=== PATIENT | female | born 1940 | race Caucasian/White ===

== ENCOUNTER 2017-05-24 09:37 | Outpatient (CLI) | payer BC, MEDICARE ==
--- NOTE | 2017-05-24 13:11 | MRI ---
MRI LUMBAR SPINE NONCONTRAST: DATE: 05/24/17 HISTORY: 76-year-old female with chronic low back pain for 1 year. M48.062. COMPARISON: None. FINDINGS: There are five lumbar-type vertebrae. There is symmetrical atrophy of the bilateral posterior paraspi nal musculature. There is no vertebral body collapse. There is advanced degenerative disc disease man ifested by moderate and severe disc space narrowing at every visualized level from T12-L1 through L5- S1. There are end plate irregularities and Schmorl's nodes at all levels from L1-2 through L5-S1. The re are Modic Type II end plate marrow changes throughout most levels. At L2-3, there are also Modic T ype I end plate marrow edema changes. Slight degenerative retrolisthesis of L1 on L2 and L5 on S1. No major spondylolisthesis. Degenerative facet changes of varying degrees, mostly mild superiorly, and moderate at mid to lower levels. These are greatest at L4-5 and L5-S1 bilaterally. There is prominent epidural fat throughout the spinal canal (epidural lipomatosis), resulting in a thecal sac caliber t hat is significantly smaller than the bony spinal canal caliber. There are diffuse disc bulges at ted ry level, encroaching upon the anterior aspect of the spinal canal. These are largest at T12-L1 and L 1-2. Thickened ligamentum flavum encroaches upon the posterior aspect of the spinal canal, especially on the right at L3-4, and bilaterally at L4-5 and L5-S1. Regarding the spinal canal caliber, thecal sac caliber, and neural foraminal caliber, the findings by individual levels are as follows: T12-L1: Mild central spinal canal stenosis. Moderate to severe thecal sac stenosis. Mild bilateral neural for aminal stenosis. L1-2: Mild central spinal canal stenosis. Moderate to severe thecal sac stenosis. Mild bilateral neural for aminal stenosis. L2-3: Mild central spinal canal stenosis. Moderate to severe thecal sac stenosis. Mild to moderate bilatera l neural foraminal stenosis. L3-4: Mild central spinal canal stenosis. Severe thecal sac stenosis. Moderate bilateral neural foraminal s tenosis. L4-5: Mild to moderate central spinal canal stenosis. Severe thecal sac stenosis. Moderate right neural for aminal stenosis. Moderate to severe left neural foraminal stenosis. L5-S1: No central spinal canal stenosis. Severe thecal sac stenosis. Moderate right neural foraminal stenosi s. Moderate to severe left neural foraminal stenosis. IMPRESSION: 1. Lumbar spondylosis, consisting of multilevel moderate and severe degenerative disc disease, and l ower level moderate facet osteoarthrosis. 2. Diffuse epidural lipomatosis, resulting in significantly smaller caliber of the thecal sac compar ed to that of the spinal canal. While there is no high grade bony central spinal canal stenosis, ther e is multilevel severe thecal sac stenosis. 3. Neural foraminal stenosis of varying degrees, worst on the left at L5-S1, followed by left at L4- 5. 4. Atrophy of the bilateral posterior paraspinal musculature. JN R POS: OFF
== END 2017-05-24 09:38 | disposition home or self-care (01) ==
LOC: SCSMRI 09:37
PROVIDERS: ATTEND Anesthesiology Pain Medicine
DX: M48.062 Spinal stenosis, lumbar region with neurogenic claudication (principal); M47.816 Spondylosis without myelopathy or radiculopathy, lumbar region; M51.36 Other intervertebral disc degeneration, lumbar region; E88.2 Lipomatosis, not elsewhere classified; M48.8X6 Other specified spondylopathies, lumbar region
CPT/HCPCS: 72148

== ENCOUNTER 2018-08-29 13:51 | Inpatient (IN) | payer MEDICARE, BC ==
[2018-08-29 14:35] LABS: Bilirubin Negative (Negative); Blood, Urine Large (Negative); Clarity CLOUDY (Clear); Glucose, Urine (Dipstick) Negative (Negative); Leukocyte Trace (Negative); Nitrite Negative (Negative); Protein, Urine (Dipstick) 100 mg/dL (Neg-Trace); Specific Gravity, Urine 1.023 (1.002-1.036); pH, Urine 6.5 (5.0-9.0)
[2018-08-29 14:38] LABS: Bacteria/HPF 4+ HPF (None Seen)
[2018-08-29 14:41] LABS: Pathc Cast-AUWi Flag 8.41 (0-2.49)
[2018-08-29 14:42] LABS: Hyaline Casts/LPF 0-3 HYALINE CAST LPF (0-3 Hyaline); Manual Microscopic Reviewed? No Path Casts Seen; Renal Epithelial None Seen HPF (0-3); Transitional Epithelial NONE SEEN HPF (0-3)
[2018-08-29 14:57] LABS: ALT (SGPT) 44 U/L (8-55); AST (SGOT) 139 U/L (5-34); Alkaline Phosphatase 96 U/L (40-150); Anion Gap 17 mmol/L (10-20); BUN (Urea Nitrogen) 13 mg/dL (9.8-20.1); Bilirubin, Total 1.4 mg/dL (0.2-1.2); Calc. Creatinine Clearance 0 mL/min (70-130); Calcium 9.5 mg/dL (7.8-10.44); Carbon Dioxide 20 mmol/L (23-31); Estimated GFR-MDRD 73; Globulin 2.9 g/dL (2.4-3.5); Glucose 102 mg/dL (83-110); Hemoglobin 13.1 g/dL (12.0-16.0); Mean Corpuscular HGB CONC 35.4 g/dL (32.0-36.0); Mean Corpuscular Hemoglobin 31.6 pg (27.0-31.0); Mean Corpuscular Volume 89.1 fL (78.0-98.0); Mean Platelet Volume 6.6 fL (7.4-10.4); Platelet Count 200 thou/uL (130-400); Protein, Total 6.9 g/dL (6.0-8.3); RBC Distribution Width 11.5 % (11.5-14.5); Red Blood Cell (RBC) Count 4.15 mill/uL (4.20-5.40); White Blood Cell (WBC) Count 18.7 thou/uL (4.8-10.8)
--- NOTE | 2018-08-29 15:02 | CT ---
CT BRAIN WITHOUT IV CONTRAST: HISTORY: Altered mental status. Injury from fall. Weakness. FINDINGS: Atrophy and chronic white matter ischemic changes are noted. Small, punctate calcific focus in the l eft cerebellar hemisphere, measuring approximately 0.5 cm, without evidence of mass effect or surroun ding edema. The exact etiology is uncertain, but this does not appear to be acute and does not appea r to be an acute hemorrhage. No evidence for focal mass or midline shift. There are some scattered areas of chronic white matter ischemic change. IMPRESSION: 1. A 0.5 cm in diameter punctate, calcific focus in the left cerebellar hemisphere. This does not a ppear to represent acute hemorrhage, given lack of surrounding edema. 2. Chronic white matter ischemic change and atrophy. 3. Depending on clinical concern, consideration for short-term follow-up non-emergent MRI of the bra in might be of benefit. This is reviewed in consensus with Dr. Burns. POS: [facility]
--- NOTE | 2018-08-29 15:05 | CT ---
CT LUMBAR SPINE: 08/29/2018 PROVIDED CLINICAL HISTORY: Back pain. COMPARISON: MRI dated 05/24/2017. FINDINGS: Lumbar alignment remains normal. Vertebral body heights are preserved. There is no evidence for fra cture or other acute osseous abnormality. Diffuse epidural lipomatosis is redemonstrated with associ ated circumferential attenuation of the thecal sac from L3, caudally. Advanced multilevel lumbar dis k degenerative changes are redemonstrated, with associated vacuum disk phenomena at multiple levels. There is a broad-based disk bulge again demonstrated at L1-L2, now with an associated gas-filled dis k herniation, in a left central/paracentral location, with potential for impingement on the traversin g left-sided nerve roots. This produces deformation of the left ventral lateral thecal sac. There i s bilateral foraminal narrowing seen at L3-L4 through L5-S1, similar to slightly advanced when compar ed to the prior MRI. Vascular calcifications are seen. No soft tissue inflammatory changes are evid ent. IMPRESSION: 1. No evidence for an acute osseous abnormality. 2. Advanced multilevel lumbar degenerative changes with gas-filled disk herniation at L1-L2, as desc ribed. 3. Caudal epidural lipomatosis. POS: OFF
[2018-08-29] MEDS ORDERED: Ketorolac Tromethamine 30 MG/ML VIAL ONE (15:09)
[2018-08-29] MEDS ORDERED: Morphine 4 MG/ML VIAL ONE (15:09)
[2018-08-29] MEDS ORDERED: cefTRIAXone\\ROCEPHIN 1 GM VIAL ONE (15:09)
[2018-08-29 15:10] LABS: Chloride 71 mmol/L (98-107); Sodium 105 mmol/L (136-145)
[2018-08-29 15:23] LABS: Band 3 % (5-11); Lymphocytes 3 % (21-51); MDiff Complete? YES; Monocytes 4 % (0-10); Neutrophil 90 % (42-75); Platelet Morphology Comment Appears Adequate
--- NOTE | 2018-08-29 15:37 | RAD ---
AP CHEST: HISTORY: Mental status change. FINDINGS: Poor inspiration. The lungs appear clear. There is a calcified left hilar lymph node. The heart ap pears mildly prominent with mild vascular engorgement. No overt congestion or edema noted. IMPRESSION: Suboptimal examination due to poor inspiration and poor positioning. No acute process apparent. POS: [facility]
[2018-08-29] MEDS ORDERED: Sodium Chloride 3% 100 ML IVPB SCH (16:00)
[2018-08-29] MEDS ORDERED: Morphine 2 MG/ML SYRINGE SLOW IVP PRN (17:18)
--- NOTE | 2018-08-29 17:18 | MRI ---
MRI LUMBAR SPINE WITHOUT CONTRAST: 08/29/18 Multiplanar and multisequential imaging of the lumbar spine obtained. INDICATIONS: Back pain. Correlation made to CT scan performed earlier today. Motion artifact degrades the sequences. Severe degenerative changes throughout the lumbar spine with degenerative discs and end plate changes at all levels. Prominent osteophytes which are best appreciated on today's CT scan. At T12-L1, disc bulge flattens the thecal sac. This abuts the conus. At L1-2, evidence of a disc protrusion. CT shows a large gas pocket protruding from the disc. This co mpresses the thecal sac. Mild to moderate central canal stenosis. At L3-4, disc bulge compresses the thecal sac. Posterior epidural fat. Moderate central canal stenosi s. Bilateral foraminal stenosis more prominent on the right. There is disc osteophyte complex. At L4-5, mild diffuse disc bulge. Prominent epidural fat. Mild to moderate central canal stenosis pr imarily due to epidural fat. At L5-S1, prominent epidural fat results in thecal sac compression. Bilateral foraminal stenosis due to disc osteophyte complex and facet hypertrophy. IMPRESSION: Moderate to severe degenerative changes throughout the lumbar spine. There is epidural lipomatosis co mpressing the thecal sac throughout the lumbar canal. Diffuse disc bulge at multiple levels more prom inent at L1-2, L2-3, and L3-4. See accompanying CT scan performed earlier today. POS: [facility]
[2018-08-29] MEDS ORDERED: Ondansetron PF 4 MG/2 ML Vial IVP PRN ×2 (17:19)
[2018-08-29] MEDS ORDERED: Nitroglycerin 0.4 MG TAB (25 Tab Bottle) SL PRN (17:19)
[2018-08-29] MEDS ORDERED: Sodium Chloride 0.65% Nasal 44 ML BOT EA NARE PRN (17:19)
[2018-08-29] MEDS ORDERED: cloNIDine 0.1 MG TAB PO PRN (17:19)
[2018-08-29] MEDS ORDERED: Bisacodyl 5 MG TAB PO PRN ×2 (17:19)
[2018-08-29] MEDS ORDERED: HYDROcodone/Acetaminophen 5/325 mg Tablet PO PRN (17:19)
[2018-08-29] MEDS ORDERED: Acetaminophen 325 MG TAB PO PRN (17:19)
[2018-08-29] MEDS ORDERED: Senokot S 8.6-50 MG TAB PO PRN ×2 (17:19)
[2018-08-29] MEDS ORDERED: hydrALAZINE 20 MG/ML VIAL SLOW IVP PRN (17:19)
[2018-08-29] MEDS ORDERED: Diabetic Tussin 200 MG/10 ML UDCUP PO PRN (17:19)
[2018-08-29] MEDS ORDERED: Benzonatate 100 MG CAP PO PRN (17:19)
[2018-08-29] MEDS ORDERED: Calcium Carbonate 500 MG ChewTAB PO PRN (17:19)
[2018-08-29] MEDS ORDERED: Potassium Chloride 40 MEQ in Sodium Chloride 0.9% 250 ML 250 ML IVPB SCH (17:45)
[2018-08-29 18:10] LABS: Anion Gap 13 mmol/L (10-20); BUN (Urea Nitrogen) 13 mg/dL (9.8-20.1); Calc. Creatinine Clearance 0 mL/min (70-130); Calcium 8.6 mg/dL (7.8-10.44); Carbon Dioxide 21 mmol/L (23-31); Chloride 75 mmol/L (98-107); Estimated GFR-MDRD 74; Glucose 88 mg/dL (83-110)
[2018-08-29 18:17] LABS: Potassium 2.9 mmol/L (3.5-5.1); Sodium 106 mmol/L (136-145)
[2018-08-29] MEDS ORDERED: Potassium Chloride 20 MEQ TAB PO SCH (18:30)
[2018-08-29 18:45] LABS: Troponin I 0.013 ng/mL (< 0.028)
--- NOTE | 2018-08-29 18:59 | CON ---
DATE OF CONSULTATION: 08/29/2018 CONSULTING PHYSICIAN: Dr. Rose. REASON FOR CONSULTATION: Severe hyponatremia. HISTORY OF PRESENT ILLNESS: A 77-year-old female with past medical history significant for hypertension and depression, who was brought in by EMS for evaluation of severe hyponatremia. The following history is obtained from discussion with the patient's spouse and with the patient. The patient reportedly developed nausea and dizziness as well as worsening back pain about one week ago , for which she was seen by the PCP two days ago, during which blood work was done. The patient was contacted today's morning by PCP and was directed to go to the ER for further evaluation as her sodium was very low. Evaluation in the ER today showed sodium of 105. The patient's spouse reported that the patient has been asking the same question, trying to get out of bed despite reorientation associated with unsteady gait and falls. Reportedly fell yesterday and earlier today before presentation to the ER. There was no history of vomiting, but the patient admitted to nausea and dry heaving. There was no history of diarrhea. The patient reported that appetite has been good and intake has also been adequate. Spouse, however , is of the view that the patient may have been drinking more water in the last few days. The patient denied dysuria, but admitted to chronic urinary incontinence. There is no history of fever, abdominal pain, chest pain, palpitation, or leg swelling. The patient also denied headache or focal weakness. PAST MEDICAL HISTORY: 1. Depression. 2. Obesity. 3. Hypertension. 4. The patient also reported taking metformin in the past for diabetes, but currently is not on any medication. 5. Chronic back pain. 6. Hyperlipidemia. PAST SURGICAL HISTORY: 1. Lumpectomy. 2. section. FAMILY HISTORY: This is noncontributory. SOCIAL HISTORY: The patient reported occasional alcohol use, but denied smoking or recreational drug use. ALLERGIES: PENICILLIN. HOME MEDICATIONS: 1. Abilify. 2. Atenolol. 3. Fluoxetine. 4. Thyroid medication. 5. Losartan. 6. Potassium. 7. Singulair. 8. Terazosin. 9. Multivitamin. 10. Lovastatin. PHYSICAL EXAMINATION: VITAL SIGNS: Initial vitals on presentation showed blood pressure 171/105, pulse of 63, respiratory rate 20, temperature 98.8, and SpO2 of 97% on room air. Most current vitals showed blood pressure 134/67, pulse 60, respiratory rate 18, temperature 98.8, and SpO2 of 97% on room air. GENERAL: Obese, elderly female, in [id number] distress. Afebrile, anicteric, acyanotic. HEENT: Normocephalic and atraumatic. Pupils are reacting to light. Oral mucosa is moist. NECK: Short, thick neck with excess subcutaneous tissue. No obvious JVD or masses appreciated. RESPIRATORY: Good air entry bilateral with no obvious crackle or rhonchi or use of accessory muscles. CARDIOVASCULAR: Regular rhythm and rate with normal heart sounds 1 and 2. Soft systolic murmur heard at the mitral area. GI: Abdomen is obese, soft, nontender, nondistended with normal bowel sounds. EXTREMITIES: Grossly normal looking. Atraumatic with no edema or erythema. SKIN: No obvious rash appreciated. NEUROLOGIC: Conscious and alert, oriented x3 with appropriate mental status. Memory lapse is appreciated. The patient keeps asking the same question despite reorientation. She is able to answer questions appropriately, though at times slow. Moves all extremities symmetrically. PSYCHIATRIC: Restless. Wanting to sit up despite being told that she could not sit or stand. She seems not to be able to find a comfortable position, may be related to back pain. DIAGNOSTIC DATA: CBC showed WBC count of 18.7, hemoglobin of 13.1, MCV of 89.1, platelet of 200. CMP showed sodium 105, potassium 3.0, chloride 71, CO2 of 20, anion gap 17, BUN 13, creatinine 0.77, glucose 102, calcium 9.5, total bilirubin 1.4, AST 139, ALT 44, alkaline phosphatase 96, total protein 6.9, albumin 4.0, globulin 2.9. BNP is 147.3. Urinalysis showed yellow cloudy urine with pH of 6.5 and specific gravity of 1.023. Ketone is positive as well as protein and blood. Nitrite, bilirubin, and glucose were negative. The patient has trace leukocyte esterase. Microscopy showed 11 to 20 red blood cells and 7 to 10 white blood cells as well as 7 to 10 squamous cells and 4+ bacteria. EKG showed normal sinus rhythm with rate of 60. Nonspecific ST-segment and T- wave changes were noted. Chest x-ray showed poor inspiration and clear lungs with no apparent acute process. CT scan of the brain showed a 0.5 cm punctate calcific focus in the left cerebral hemisphere, which does not appear to represent acute hemorrhage given lack of surrounding edema. Also noted were chronic white matter ischemic changes and atrophy. CT scan of the lumbosacral spine showed no evidence of acute osseous abnormality. However, advanced multilevel lumbar degenerative changes with gas-filled disk herniation at level L1-2 as well as caudal epidural lipomatosis was noted. Lumbar sacral spine MRI showed moderate to severe degenerative changes throughout the lumbar spine as well as epidural lipomatosis compressing the thecal sac throughout the lumbar canal. Diffuse disk bulge at multiple levels, most prominent at L1-2 as well as L2-3 and L3-4 noted. ASSESSMENT AND PLAN: 1. Severe and symptomatic hyponatremia. Acuity and etiology is unclear. No prior labs is available at this time. Attempts at getting information from PCP's office was unsuccessful. Acute worsening of chronic hyponatremia seem most likely. Normal creat with no evidence of dehydration is suggestive of chronicity while PCP calling patient to present to ER as well as worsening dizziness, confusion and falls points to acute component. SIADH is suggested by the concentrated urine with SG of 1.023 despite severe hyponatremia. Patient is on antidepressants and also was hypokalemia and both can lead to hyponatremia. Also recent nausea and worsening back pain can stimulate ADH secretion. We will give 100 mL bolus of hypertonic saline and we will repeat serum electrolytes 2 hours after administration. We will check BMP every 4 hours and we will give additional hypertonic saline if needed. We will be cautious not to increase serum sodium more than 8 in the next 24 hours as the patient with severe hyponatremia, ischemic changes and atrophy is at increased risk of demyelination. 2. Hypokalemia: We will replete this with oral potassium chloride. 5. We will also get urine sodium, urine uric acid, and urine osmolality. 6. We will review home medications when they are available 7. We will also restrict the patient free water intake to 1 L per 24 hours. We will admit the patient to the IMCU and monitor the patient closely. 7. Hypertension: Levels are acceptable at this time. We will monitor for now while holding antihypertensives. 8. Chronic back pain. We will defer to the primary attending for this and other problems. Many thanks for involving us in the care of this patient. We will follow along with you. Job ID: [id number] [facility]
[2018-08-29 20:34] LABS: Anion Gap 14 mmol/L (10-20); BUN (Urea Nitrogen) 14 mg/dL (9.8-20.1); Calc. Creatinine Clearance 95 mL/min (70-130); Carbon Dioxide 19 mmol/L (23-31); Chloride 78 mmol/L (98-107); Estimated GFR-MDRD 72; Glucose 90 mg/dL (83-110); Potassium 3.7 mmol/L (3.5-5.1)
[2018-08-29 20:37] LABS: Sodium 107 mmol/L (136-145)
[2018-08-29 20:41] LABS: Creatinine, Urine 134.13 mg/dL (47-110)
[2018-08-29] MEDS: Famotidine/PF 20 mg/2ml Vial SLOW IVP SCH (21:43)
[2018-08-29] MEDS: SODIUM CHLORIDE 3% IVPB SCH ×3 (21:45→23:21)
[2018-08-29] MEDS: ADMIXTURE FEE IVPB SCH ×3 (21:45→23:21)
--- NOTE | 2018-08-30 00:18 | HP ---
PRIMARY CARE PHYSICIAN: Dr. Reynaldo Mcgraw. CHIEF COMPLAINT: Fall and back pain. HISTORY OF PRESENTING ILLNESS: Ms. Garza is a 77-year-old female with past medical history of dyslipidemia, hypertension, chronic back pain, who presented to the emergency room with complaints of abnormal sodium. History is mainly obtained by the chart review. There is no family with the patient at this time, and the patient is a very poor historian because of some confusion as well as because of her back pain. According to the family who brought her to the emergency room, they reported that she was acting funny since last week. PCP chiquita some labs last week, which resulted today, and they called the family to come to the emergency room for "abnormal sodium." Family was not sure if it was high or low. Glucose at the time of triage was 106. History was also positive for the patient with having increased difficulty ambulating and new onset of urinary incontinence. She had a fall at home yesterday. She denies any recent illnesses, fever, chills, cough. She denies any chest pain, shortness of breath, or swelling of the legs. She denies any weight loss. She denies any dysuria or hematuria. No recent nausea, vomiting, or diarrhea. Upon presentation to the emergency room, she was hemodynamically stable with a blood pressure of 134/67, respirations 18, saturating 97% on room air, pulse of 60. Her labs were checked and she was found to have a sodium level of 105 with chloride of 71, potassium 3.0, bicarb of 20. Her BNP was mildly elevated at 147. She also had leukocytosis with WBCs of 18.7 with 90% neutrophils. Urinalysis was consistent with urinary tract infection with multiple bacteria and wbc's. She was given Rocephin, and Nephrology was consulted from the emergency room. She was treated emergently with 3% saline, I think about 100 mL, and is now being admitted to [facility] for severe hyponatremia. At this time, no baseline is available for this patient. She has never been admitted to our facility before. She is not able to tell what medications she is on, but denies any recent changes in her medications. When I specifically asked if she is on any antidepressants, she said that yes she is, but could not recall the name. PAST MEDICAL HISTORY: Not sure if it is complete, but according to the ER physician, she has history of hypertension, dyslipidemia, and chronic back pain. She follows up with Dr. Roldan. PAST SURGICAL HISTORY: 1. Left breast lumpectomy in 1982. 2. section. PSYCHIATRIC HISTORY: Depression. SOCIAL HISTORY: She is and lives with her . No history of drug, tobacco, or alcohol abuse. FAMILY HISTORY: Unable to obtain because of patient's confusion and acute on chronic pain at this time. CODE STATUS: Could not be completed as the patient would not answer my questions properly. She has implied full code at this time. REVIEW OF SYSTEMS: She endorses back pain, difficulty ambulating, and increased urinary frequency, but it is difficult to be completed because of confusion. LABORATORY DATA: CBC shows WBC 18.7, platelet count of 200, 90% neutrophils. Serum chemistry shows sodium of 105, potassium 3.0, chloride 71, bicarb 20, total bilirubin is 1.4, AST is 139, BNP is 147. Urinalysis showed proteinuria without any glucose. She has large ketones, blood, wbc's, rbc's, and +[address] scan of the brain per my review shows no intracranial hemorrhage. There is a 0.5 cm punctate calcific focus in the left cerebellar hemisphere of unknown significance. Chronic atrophy and white matter changes are noticed. Chest x-ray by my review shows no evidence of any pulmonary effusion or edema. CT scan of the lumbar spine shows multilevel lumbar degenerative changes with gas-filled disk herniation at L1 and L2. Lumbar spinal MRI shows moderate to severe degenerative changes throughout the lumbar spine and epidural lipomatosis compressing the thecal sac throughout the lumbar canal, diffuse disk bulge at multiple levels, more prominent at L1-L2, L2-L3, and L3-L4. PHYSICAL EXAMINATION: VITAL SIGNS: Upon presentation, blood pressure 171/105, pulse of 63, respirations 20, temperature 98.8, saturating 97% on room air. GENERAL: She is uncomfortable, and moving around in the bed, trying to get in a comfortable position, but is awake and alert, oriented to at least self and place. No acute distress. She appears disheveled and pale. HEENT: Mucous membrane is dry. No oropharyngeal exudate or erythema. Head is normocephalic and atraumatic. Pupils are equally reactive to light and accommodation. Extraocular movements intact. NECK: Supple without any lymphadenopathy, JVD, or bruit. CHEST: Clear to auscultation without any wheezing, rales, or rhonchi. ABDOMEN: Obese, soft, nontender, mildly distended without any rebound, guarding, or rigidity. BACK: Her back is nontender to palpation over the spine and the paraspinal region. No obvious deformity or hematoma noticed. EXTREMITIES: Free of any cyanosis, clubbing, or edema. NEUROLOGICAL: Nonfocal. SKIN: Free of any rashes or bruises, feels warm and dry to touch. PSYCHIATRIC: Confusion noticed. The patient keeps repeating the same question and same sentences over and over again. IMPRESSION AND PLAN: 1. Severe hyponatremia. It is unclear whether this is acute versus chronic. No baseline is available at this time. Etiology is also unclear. She does have some evidence of dehydration, and she also takes antidepressants. For now, we will correct the sodium slowly. Nephrology was consulted from the emergency room and the patient has received 3% saline, total of 100 mL for now. We will recheck a BMP after that and treat according to Nephrology recommendations. Avoid quick correction of the low sodium. The patient will have further testing in the form of urine and serum osmolality and urine creatinine. She will be admitted to [facility] for close monitoring. Currently, her neurological status is A and O times at least 2. 2. Hypokalemia. We will replace potassium IV and recheck. 3. Urinary tract infection without evidence of overt sepsis. The patient will be continued on IV antibiotic namely Rocephin, which was started in the emergency room. The patient has blood cultures and urine cultures drawn, and we will follow the final results and adjust the medications according to that. 4. Acute on chronic back pain. The patient will be treated with empiric pain medications and we will avoid over-sedation and over-treatment. If her pain remains uncontrolled, consider consultation with pain management. The patient follows up with Dr. Roldan in the outpatient setting. We will have OT/PT evaluate her. 5. History of hypertension, unclear whether the patient takes any medications at home for this or not. Her has gone home to get her medications. We will restart as indicated if not contraindicated by her hyponatremia like hydrochlorothiazide. Meanwhile, we will add p.r.n. antihypertensives. 6. Elevated BNP. We will go ahead and obtain an echocardiogram to rule out congestive heart failure, which might also explain some of the hyponatremia. At this time, the patient is not in any respiratory distress or fluid overload. 7. Deep venous thrombosis and gastrointestinal prophylaxis and p.r.n. medication orders. 8. Lumbar disk bulge and degenerative disease of the spine. At this time, the patient has no neurological deficits. She will continue to follow up with pain medication physician in the outpatient setting. She eventually would need decompression surgery, which can be achieved as an outpatient. We will do serial neurological examination as she is at high risk for acute neurological/spinal event. 9. Fall. The patient has no overt hematoma bleeding. We will have PT/OT evaluate her. She will most likely require skilled rehab or inpatient rehab placement. DISPOSITION: Ms. Garza is currently being admitted to [facility] for severe hyponatremia and urinary tract infection. Estimated length of stay at this time is at least 2 to 3 midnights. Further management will depend upon her clinical course. Job ID: [id number]
[2018-08-30 00:53] LABS: Anion Gap 12 mmol/L (10-20); BUN (Urea Nitrogen) 15 mg/dL (9.8-20.1); Calc. Creatinine Clearance 102 mL/min (70-130); Calcium 9.2 mg/dL (7.8-10.44); Carbon Dioxide 18 mmol/L (23-31); Chloride 83 mmol/L (98-107); Estimated GFR-MDRD 78; Glucose 82 mg/dL (83-110)
[2018-08-30 00:55] LABS: Sodium 109 mmol/L (136-145)
[2018-08-30 05:53] LABS: #Basophils 0.1 thou/uL (0.0-0.2); #Eosinphils 0.1 thou/uL (0.0-0.7); #Lymphocytes 0.9 thou/uL (1.20-3.40); #Monocytes 1.2 thou/uL (0.11-0.59); #Neutrophils 14.2 thou/uL (1.40-6.50); %Basophils 0.6 % (0.0-1.0); %Eosinophils 0.5 % (0.0-10.0); %Lymphocytes 5.6 % (21.0-51.0); %Monocytes 7.1 % (0.0-10.0); %Neutrophils 86.2 % (42.0-75.0); Hemoglobin 12.6 g/dL (12.0-16.0); Mean Corpuscular HGB CONC 35.9 g/dL (32.0-36.0); Mean Corpuscular Hemoglobin 32.4 pg (27.0-31.0); Mean Corpuscular Volume 90.2 fL (78.0-98.0); Mean Platelet Volume 6.8 fL (7.4-10.4); Platelet Count 213 thou/uL (130-400); RBC Distribution Width 11.6 % (11.5-14.5); Red Blood Cell (RBC) Count 3.89 mill/uL (4.20-5.40); White Blood Cell (WBC) Count 16.5 thou/uL (4.8-10.8)
[2018-08-30 06:13] LABS: Anion Gap 12 mmol/L (10-20); BUN (Urea Nitrogen) 16 mg/dL (9.8-20.1); Calc. Creatinine Clearance 93 mL/min (70-130); Calcium 9.2 mg/dL (7.8-10.44); Carbon Dioxide 21 mmol/L (23-31); Chloride 81 mmol/L (98-107); Estimated GFR-MDRD 70; Glucose 71 mg/dL (83-110); Potassium 3.6 mmol/L (3.5-5.1)
[2018-08-30 06:17] LABS: Sodium 110 mmol/L (136-145)
[2018-08-30] MEDS ORDERED: Potassium Chloride 20 MEQ TAB PO SCH (06:30)
[2018-08-30] MEDS ORDERED: Prevnar 13-Val Conj/PF 0.5 ML SYRINGE IM ONE (09:00)
[2018-08-30] MEDS: Enoxaparin Sodium 40 MG/0.4 ML SYRINGE SC SCH (10:21)
[2018-08-30] MEDS: Famotidine/PF 20 mg/2ml Vial SLOW IVP SCH ×2 (10:21→21:58)
[2018-08-30 11:03] LABS: Anion Gap 10 mmol/L (10-20); BUN (Urea Nitrogen) 18 mg/dL (9.8-20.1); Calc. Creatinine Clearance 77 mL/min (70-130); Calcium 9.3 mg/dL (7.8-10.44); Carbon Dioxide 20 mmol/L (23-31); Chloride 83 mmol/L (98-107); Estimated GFR-MDRD 57; Glucose 102 mg/dL (83-110); Magnesium 1.7 mg/dL (1.6-2.6)
[2018-08-30 11:06] LABS: Sodium 109 mmol/L (136-145)
[2018-08-30] MEDS ORDERED: Sodium Chloride 3% 100 ML IVPB SCH (12:00)
[2018-08-30] MEDS ORDERED: methylPREDNISolone Sod Succ/PF 125 MG/2 ML VIAL IVP SCH (12:00)
--- NOTE | 2018-08-30 13:08 | PRG ---
DATE OF SERVICE: 08/30/2018 SUBJECTIVE: A 77-year-old female admitted due to severe hyponatremia associated with some confusion and falls. The patient reports feeling better. Restlessness has subsided. She complains of poor appetite with poor oral intake. Chronic back pain also has improved. Denied chest pain, shortness of breath, abdominal pain, vomiting, or change in bowel habit. Overnight, the patient received 2 boluses of hypertonic solution. OBJECTIVE: VITAL SIGNS: Temperature 97.2, pulse 58, respiratory rate 16, SpO2 of 99% on room air, blood pressure is 125/60. GENERAL: Obese, elderly female, in no obvious distress. Afebrile. Anicteric. Acyanotic. HEENT: Normocephalic, atraumatic. Pupils are reacting to light. Oral mucosa is moist. CARDIOVASCULAR: Regular rhythm and rate with normal heart sounds. RESPIRATORY: Fair air entry bilaterally with no obvious crackle or rhonchi or use of accessory muscles. GI: Abdomen is obese, soft, nontender, nondistended with normal bowel sounds. EXTREMITIES: Grossly normal looking, atraumatic with no edema, erythema, or cyanosis. NEUROLOGIC: Conscious, alert, and oriented x3 with appropriate mental status. Cranial nerves 2 through 12 are intact. The patient moves all extremities. PSYCHIATRIC: Normal affect. Calm and cooperative. LABORATORY AND DIAGNOSTIC DATA: CBC showed WBC count of 16.5, hemoglobin of 12.6, MCV of 90.2, platelets of 213. Most current BMP showed sodium 109, potassium 4.0, chloride 83, CO2 of 20, BUN 18, creatinine 0.96, glucose 102, calcium 9.3, magnesium 1.7. Urine sodium is 65, urine creatinine is 134, and random uric acid is 41. Urine osmolality is pending at this time. ASSESSMENT AND PLAN: 1. Severe hyponatremia: The patient had symptoms of dizziness, some confusion, and gait instability associated with falls. The patient was also restless and could not get comfortable yesterday. That has improved today. I contacted PCP, who said that the serum sodium was too low to be detected on the analyzer, but the patient had normal sodium in August 2017 of 138. Review of the patient's medications showed that the patient is on lisinopril, hydrochlorothiazide, as well as Prozac for depression. Though the patient had hypokalemia on presentation, it was noticed that her potassium was 3.6 at doctor's visit on the 27 of August, whereas it was normal last year. Given specific gravity of 1.023 despite severe hyponatremia and elevated urine sodium, there is clearly presence of inappropriately secreted antidiuretic hormone. Hypokalemia and thiazide diuretic use clearly impaired urine concentrating ability. Also, Prozac may lead to syndrome of inappropriate ADH secretion. The patient also was said to be drinking excessive amount of water in the last few days prior to presentation. 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 Sodium is up to 109 with 2 boluses of hypertonic solution of 100 mL. Mental status change seems improved. The patient is not confused and is not restless. We will also give additional 100 mL of hypertonic solution and continue to monitor electrolytes. We will also continue free water restriction to 800 mL per 24 hours. 2. Hypokalemia: Repleted with potassium chloride. 3. Chronic back pain: Analgesic as needed. We would defer to the primary attending. 4. Hypertension: We will continue to hold antihypertensives as BP is within normal limits at this time. We will avoid thiazide diuretics if and when antihypertensive is needed. 5. Leukocytosis: Etiology is unclear. Urinalysis, though positive for pyuria, had several squamous epithelial cells, making UTI unlikely. We will defer evaluation to the primary attending. 6. Diet: Heart-healthy diet to continue. Job ID: [id number]
--- NOTE | 2018-08-30 15:00 | PDOC.PN ---
- Subjective Encounter Start Date: 08/30/18 Encounter Start Time: 14:57 Subjective: feels much better today. -: back pain controlled -: family at bedside & report that mentation is back to baseline - Objective MAR Reviewed: Yes Vital Signs & Weight: Vital Signs (12 hours) Temp Pulse Pulse BP BP 08/30/18 11:35 54 L 124/70 08/30/18 10:38 97.2 F L 08/30/18 09:20 58 L 61 125/60 141/70 H 08/30/18 07:16 97.4 F L 08/30/18 03:53 97.9 F Weight Admit Weight 212 lb 14.4 oz Weight 211 lb 8 oz Most Recent Monitor Data Heart Rate from ECG 55 NIBP 145/53 NIBP BP-Mean 83 Respiration from ECG 15 SpO2 100 Result Diagrams: 08/30/18 04:44 08/30/18 10:33 Additional Labs: Microbiology 08/29/18 15:52 Venous blood - Left Hand Blood Culture - Preliminary Specimen has been received and culture in progress. No Growth to date. 08/29/18 15:47 Venous blood - Right Arm Blood Culture - Preliminary Specimen has been received and culture in progress. No Growth to date. 08/29/18 14:16 Urine Straight Catheter Urine Culture - Preliminary Alpha-Hemolytic Streptococcus Laboratory Tests 08/29/18 08/29/18 08/29/18 14:27 17:36 20:10 Sodium 105 L* 106 L* 107 L* Potassium 3.0 L 2.9 L* 3.7 08/30/18 08/30/18 00:24 04:44 Sodium 109 L* 110 L* Potassium 4.0 3.6 Phys Exam - Physical Examination Constitutional: NAD HEENT: PERRLA, moist MMs, sclera anicteric, oral pharynx no lesions Neck: no nodes, no JVD, supple, full ROM Respiratory: no wheezing, no rales, no rhonchi, clear to auscultation bilateral Cardiovascular: RRR, no significant murmur Gastrointestinal: soft, non-tender, no distention, positive bowel sounds Musculoskeletal: no edema, pulses present Neurological: non-focal, normal sensation, moves all 4 limbs Psychiatric: normal affect, A&O x 3 Skin: no rash Dx/Plan (1) Hyponatremia Code(s): E87.1 - HYPO-OSMOLALITY AND HYPONATREMIA Status: Acute Comment: Serial BMP.Multifactorial.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 total of 2 doses of Hypertonic saline -: given last night.on emore today per Nephrology note -: DC HCTZ and Prozac permanently -: restart Doxazosin & atenolol for High BP.Monitor -: hold Lisinopril/HCTZ for now.monitor renal Fx * .cont Rocephin for UTI and follow Urine Cx results * HD stable * Pain meds prn.avoid oversedation * serial BMP. Review of Systems - Review of Systems Constitutional: negative: fever, chills, sweats, weakness, malaise, other Respiratory: negative: Cough, Dry, Shortness of Breath, Hemoptysis, SOB with Excertion, Pleuritic Pain, Sputum, Wheezing Cardiovascular: negative: chest pain, palpitations, orthopnea, paroxysmal nocturnal dyspnea, edema, light headedness, other Gastrointestinal: negative: Nausea, Vomiting, Abdominal Pain, Diarrhea, Constipation, Melena, Hematochezia, Other Genitourinary: negative: Dysuria, Frequency, Incontinence, Hematuria, Retention , Other Musculoskeletal: Back Pain (chronic). negative: Neck Pain, Shoulder Pain, Arm Pain, Hand Pain, Leg Pain, Foot Pain, Other Skin: negative: Rash, Lesions, Jose, Bruising, Other Neurological: negative: Weakness, Numbness, Incoordination, Change in Speech, Confusion, Seizures, Other - Medications/Allergies Allergies/Adverse Reactions: Allergies Allergy/AdvReac Type Severity Reaction Status Date / Time Penicillins Allergy Rash Verified 08/29/18 20:56 Medications: Current Medications Acetaminophen (Tylenol) 650 mg PO Q4H PRN PRN Reason: Headache/Fever/Mild Pain (1-3) Hydrocodone Bitart/Acetaminophen ([place] 5/325) 1 tab PO Q4H PRN PRN Reason: Moderate Pain (4-6) Hydrocodone Bitart/Acetaminophen ([place] 5/325) 2 tab PO Q4H PRN PRN Reason: Severe Pain (7-10) Albuterol/Ipratropium (Duoneb) 3 ml NEB [id number] PRN PRN Reason: SOB &/or Wheezing Benzonatate (Tessalon) 100 mg PO Q6H PRN PRN Reason: Cough Bisacodyl (Dulcolax) 10 mg PO DAILYPRN PRN PRN Reason: Constipation Calcium Carbonate (Tums) 1,000 mg PO Q4H PRN PRN Reason: Heartburn or Indigestion Clonidine (Catapres) 0.1 mg PO Q4H PRN PRN Reason: SBP > 160____ Doxazosin Mesylate (Cardura) 4 mg PO BID [facility] Enoxaparin Sodium (Lovenox) 40 mg SC 0900 [facility] Last Admin: 08/30/18 10:21 Dose: 40 mg Famotidine (Pepcid) 20 mg SLOW IVP Q12HR [facility] Last Admin: 08/30/18 10:21 Dose: 20 mg Guaifenesin (Robitussin Sf) 200 mg PO Q4H PRN PRN Reason: Cough Hydralazine HCl (Apresoline) 10 mg SLOW IVP Q4H PRN PRN Reason: SBP > 180 and HR < 70 Montelukast Sodium (Singulair) 10 mg PO DAILY [facility] Morphine Sulfate (Morphine) 2 mg SLOW IVP Q3H PRN PRN Reason: Moderate Pain (4-6) Last Admin: 08/30/18 01:14 Dose: 2 mg Nitroglycerin (Nitrostat) 0.4 mg SL Q5MIN PRN PRN Reason: Chest Pain Ondansetron HCl (Zofran) 4 mg IVP Q6H PRN PRN Reason: Nausea/Vomiting Senna/Docusate Sodium (Senokot S) 2 tab PO BID PRN PRN Reason: Constipation Sodium Chloride ([place] Nasal [place] 0.65%) 0 ml EA NARE QIDPRN PRN PRN Reason: Nasal Congestion Sodium Chloride (Flush - Normal Saline) 10 ml IVF Q12HR [facility] Last Admin: 08/30/18 10:23 Dose: 10 ml Sodium Chloride (Flush - Normal Saline) 10 ml IVF PRN PRN PRN Reason: Saline Flush
[2018-08-30 16:27] LABS: Anion Gap 14 mmol/L (10-20); BUN (Urea Nitrogen) 18 mg/dL (9.8-20.1); Calc. Creatinine Clearance 74 mL/min (70-130); Calcium 9.8 mg/dL (7.8-10.44); Carbon Dioxide 19 mmol/L (23-31); Chloride 83 mmol/L (98-107); Estimated GFR-MDRD 54; Glucose 98 mg/dL (83-110); Potassium 3.8 mmol/L (3.5-5.1)
[2018-08-30 16:32] LABS: Sodium 112 mmol/L (136-145)
--- NOTE | 2018-08-30 19:40 | CON ---
DATE OF CONSULTATION: 08/30/2018 HISTORY OF PRESENT ILLNESS: Ms. Garza is a 77-year-old female, who is unable to give a history when she presented to the hospital, but is oriented to person and place today. She did not know that today was Sunday. Apparently, she recently had blood work drawn. After several days, she apparently was called and told she needed to go to the hospital. Her only complaint was weakness and there apparently was some confusion on admission. PAST MEDICAL HISTORY: Remarkable for; 1. Lipid disorder. 2. History of hypertension. 3. History of lumpectomy. 4. History of . 5. History of depression, for which she takes fluoxetine. 6. History of a vitrectomy and epiretinal membrane peel in her right eye back in 2014. 7. History of chronic back pain, followed by Dr. Roldan. SOCIAL HISTORY: She is nonsmoker, nondrinker, and nondrug user. She is . FAMILY HISTORY: Negative for lung disease in early age. REVIEW OF SYSTEMS: 10 point review of systems completed, otherwise negative. She says she is feeling better. PHYSICAL EXAMINATION: GENERAL: Ms. Garza is a 77-year-old female. VITAL SIGNS: Blood pressure 145/53, heart rate 55, and respiratory rate 15. HEENT: Pupils are reactive. Sclerae are anicteric. Extraocular movements appear intact. NECK: Supple. No lymphadenopathy. LUNGS: Clear. HEART: Regular rhythm. S1 and S2 are normal. I will hear murmur. ABDOMEN: Soft and nontender. EXTREMITIES: Without clubbing, cyanosis, or edema. LABORATORY DATA: White count 16.5, hemoglobin 12.6, platelets 213,000. Sodium 109, potassium 4, chloride 83, bicarb 20, BUN 18, and creatinine 0.96. IMPRESSION AND PLAN: Hyperosmotic hyponatremia. I suspect this was all brought on by the fluoxetine. I would recommend continued to withhold this. She does have a slightly prolonged expiratory phase and says she has asthma, so nebulizer treatments were started and a dose of steroids was given. She needs 1000 mL fluid restriction. I suspect her sodium will gradually correct with fluid restriction. This is a 50 minute consult, with greater than 50% of time spent on unit coordinating care. Job ID: [id number] [facility]
[2018-08-30] MEDS ORDERED: Doxazosin Mesylate 4 MG TAB PO SCH (21:00)
[2018-08-30] MEDS: Aripiprazole 2 MG TAB PO SCH (21:57)
[2018-08-30] MEDS: Atenolol 50 MG TAB PO SCH (21:58)
[2018-08-30] MEDS: Doxazosin Mesylate 4 MG TAB PO SCH (21:58)
[2018-08-30 22:48] LABS: Anion Gap 14 mmol/L (10-20); BUN (Urea Nitrogen) 19 mg/dL (9.8-20.1); Calc. Creatinine Clearance 84 mL/min (70-130); Calcium 9.5 mg/dL (7.8-10.44); Carbon Dioxide 14 mmol/L (23-31); Chloride 86 mmol/L (98-107); Estimated GFR-MDRD 63; Glucose 121 mg/dL (83-110); Potassium 4.3 mmol/L (3.5-5.1)
[2018-08-30 22:52] LABS: Sodium 110 mmol/L (136-145)
[2018-08-30] MEDS ORDERED: SODIUM CHLORIDE 3% IVPB SCH (23:45)
[2018-08-30] MEDS ORDERED: ADMIXTURE FEE IVPB SCH (23:45)
[2018-08-31 08:19] LABS: Anion Gap 14 mmol/L (10-20); BUN (Urea Nitrogen) 19 mg/dL (9.8-20.1); Calc. Creatinine Clearance 82 mL/min (70-130); Calcium 9.8 mg/dL (7.8-10.44); Carbon Dioxide 17 mmol/L (23-31); Chloride 87 mmol/L (98-107); Estimated GFR-MDRD 62; Glucose 98 mg/dL (83-110); Potassium 4.4 mmol/L (3.5-5.1)
[2018-08-31 08:21] LABS: Sodium 114 mmol/L (136-145)
[2018-08-31] MEDS: Atenolol 50 MG TAB PO SCH ×2 (09:33→20:34)
[2018-08-31] MEDS: Doxazosin Mesylate 4 MG TAB PO SCH ×2 (09:33→20:33)
[2018-08-31] MEDS: Enoxaparin Sodium 40 MG/0.4 ML SYRINGE SC SCH (09:34)
[2018-08-31] MEDS: Montelukast Sodium 10 mg Tablet PO SCH (09:34)
[2018-08-31] MEDS: Simvastatin 5 MG TAB PO SCH (09:34)
[2018-08-31] MEDS: Famotidine/PF 20 mg/2ml Vial SLOW IVP SCH ×2 (09:34→20:33)
[2018-08-31] MEDS ORDERED: Lisinopril 10 MG TAB PO SCH (10:45)
--- NOTE | 2018-08-31 11:50 | PRG ---
DATE OF SERVICE: 08/31/2018 SUBJECTIVE: The patient has been seen for severe hyponatremia. The patient was appropriate yesterday morning, but got more confused as the day progressed. Still complaining of nausea. Oral intake remained very, very poor. The patient received additional hypertonic solution bolus last night. OBJECTIVE: VITAL SIGNS: Temperature 97.0, pulse 70, respiratory rate 16, SpO2 100% on room air, blood pressure is 167/87. GENERAL: Acutely ill-looking, obese female, in no obvious distress. The patient is drowsy. HEENT: Normocephalic, atraumatic. Pupils are reacting to light. Oral mucosa is moist. CARDIOVASCULAR: Regular rhythm and rate. Normal heart sounds one and two. RESPIRATORY: Fair air entry bilaterally with prolonged expiration and few rhonchi. No obvious crackle or use of accessory muscles appreciated. GASTROINTESTINAL: Obese, soft, nontender, nondistended with normal bowel sounds. EXTREMITIES: Grossly normal-looking atraumatic with no edema, erythema, or cyanosis. NEUROLOGIC: The patient is drowsy. Easily arousable. Answers questions appropriately. Cranial nerves 2 through 12 are intact. The patient moves all extremities. PSYCHIATRIC: Labile mood, but cooperative. DIAGNOSTIC DATA: BMP this morning showed sodium 114, potassium 4.4, chloride 87, CO2 17, BUN 19, creatinine 0.89, glucose 98, calcium 9.8. ASSESSMENT AND PLAN: 1. Severe hyponatremia: Symptomatic with dizziness, confusion, as well as gait instability and falls. The patient was appropriate yesterday, but today, she is still complaining of nausea and weakness, as well as poor oral intake. The patient had a bolus of 3% normal saline last night with appropriate increase in serum sodium from 110 to 114. Prior to that 110, serum sodium was 112, but regressed to 110. 2. Metabolic acidosis: Etiology is unclear. The patient continues to complain about nausea and dry heaving. We will get lactic acid. Occult abdominal infection is a concern given persistent nausea and poor intake, as well as metabolic acidosis. 3. Hypokalemia: Repleted. 4. Asthma with exacerbation. The patient is currently on steroids and bronchodilators as per sales effectiveness manager. 5. Persistent nausea. 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 6. We will get repeat BMP at 12 noon and we will possibly consider starting salt tablets. 7. Diet: We will start dietary supplement as oral intake is poor. 8. Care plan was discussed with the patient and spouse at the bedside and they verbalized understanding. Their concerns were discussed and they were reassured. Job ID: [id number]
[2018-08-31] MEDS: traMADol HCl 50 MG TAB PO SCH ×2 (12:10→18:22)
[2018-08-31 13:11] LABS: Anion Gap 16 mmol/L (10-20); BUN (Urea Nitrogen) 21 mg/dL (9.8-20.1); Calc. Creatinine Clearance 87 mL/min (70-130); Calcium 10.1 mg/dL (7.8-10.44); Carbon Dioxide 16 mmol/L (23-31); Chloride 88 mmol/L (98-107); Estimated GFR-MDRD 66; Glucose 97 mg/dL (83-110); Lactic Acid 2.3 mmol/L (0.5-2.2); Potassium 4.1 mmol/L (3.5-5.1)
[2018-08-31 13:17] LABS: Sodium 116 mmol/L (136-145)
--- NOTE | 2018-08-31 14:32 | PDOC.PN ---
- Subjective Encounter Start Date: 08/31/18 Encounter Start Time: 14:30 Subjective: reports that she is having symptoms of withdrawl from -: her anti depressants .lethargy,no food intake,somnolence -: pt c/o not feeling well - Objective MAR Reviewed: Yes Vital Signs & Weight: Vital Signs (12 hours) Temp Pulse Resp BP Pulse Ox 08/31/18 11:59 55 L 08/31/18 11:45 54 L 15 99 08/31/18 11:36 97.6 F 08/31/18 09:33 70 167/87 H 08/31/18 07:27 97.0 F L 08/31/18 03:49 97.2 F L Weight Admit Weight 212 lb 14.4 oz Weight 209 lb 14.4 oz Most Recent Monitor Data Heart Rate from ECG 55 NIBP 105/53 NIBP BP-Mean 70 Respiration from ECG 14 SpO2 99 I&O: 08/30/18 08/31/18 09/01/18 06:59 06:59 06:59 Intake Total 740 Balance 740 Result Diagrams: 08/30/18 04:44 08/31/18 12:36 Additional Labs: Microbiology 08/29/18 15:52 Venous blood - Left Hand Blood Culture - Preliminary Specimen has been received and culture in progress. No Growth to date. 08/29/18 15:47 Venous blood - Right Arm Blood Culture - Preliminary Specimen has been received and culture in progress. No Growth to date. 08/29/18 14:16 Urine Straight Catheter Urine Culture - Preliminary Alpha-Hemolytic Streptococcus Laboratory Tests 08/29/18 08/29/18 08/29/18 14:27 17:36 20:10 Sodium 105 L* 106 L* 107 L* Cortisol 08/30/18 08/30/18 08/30/18 00:24 04:44 10:33 Sodium 109 L* 110 L* 109 L* Cortisol 08/30/18 08/30/18 08/30/18 12:08 16:02 22:22 Sodium 112 L* 110 L* Cortisol 14.00 08/31/18 07:42 Sodium 114 L* Cortisol Phys Exam - Physical Examination Constitutional: NAD letahrgic,ma[place],falls asleep quickly but alert when woken up HEENT: PERRLA, moist MMs, sclera anicteric, TM's clear, oral pharynx no lesions , 2+ tonsils Neck: no nodes, no JVD, supple, full ROM Respiratory: no wheezing, no rales, no rhonchi, clear to auscultation bilateral Cardiovascular: RRR, no significant murmur Gastrointestinal: soft, non-tender, no distention, positive bowel sounds Musculoskeletal: no edema, pulses present Neurological: non-focal, normal sensation, moves all 4 limbs Psychiatric: normal affect, A&O x 3 Skin: no rash Dx/Plan (1) Hyponatremia Code(s): E87.1 - HYPO-OSMOLALITY AND HYPONATREMIA Status: Acute Comment: Serial BMP.Multifactorial.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 follow final Cx results (3) Hypokalemia Code(s): E87.6 - HYPOKALEMIA Status: Acute Comment: replace and recheck prn (4) Chronic back pain Code(s): M54.9 - DORSALGIA, UNSPECIFIED; G89.29 - OTHER CHRONIC PAIN Status: Chronic (5) HTN (hypertension) Code(s): I10 - ESSENTIAL (PRIMARY) HYPERTENSION Status: Chronic (6) Depression Code(s): F32.9 - MAJOR DEPRESSIVE DISORDER, SINGLE EPISODE, UNSPECIFIED Status : Chronic Qualifiers: Depression Type: major depressive disorder Comment: Prozac stopped due to hyponatremia - Plan continue antibiotics, PT/OT, respiratory therapy, incentive spirometry, DVT proph w/SCDs sodium getting better. follow fluid restriction -: discussed w nephrology.worrisome confusion -: CT Abdo/pelvis for N/V-suspect Prozac withdrawl -: am labs.HD stable -: TSH low. check Free T3/T4 * . Review of Systems - Review of Systems Constitutional: weakness, malaise. negative: fever, chills, sweats, other ENT: negative: Ear Pain, Ear Discharge, Nose Pain, Nose Discharge, Nose Congestion, Mouth Pain, Mouth Swelling, Throat Pain, Throat Swelling, Other Respiratory: negative: Cough, Dry, Shortness of Breath, Hemoptysis, SOB with Excertion, Pleuritic Pain, Sputum, Wheezing Cardiovascular: negative: chest pain, palpitations, orthopnea, paroxysmal nocturnal dyspnea, edema, light headedness, other Genitourinary: negative: Dysuria, Frequency, Incontinence, Hematuria, Retention , Other Musculoskeletal: negative: Neck Pain, Shoulder Pain, Arm Pain, Back Pain, Hand Pain, Leg Pain, Foot Pain, Other Skin: negative: Rash, Lesions, Jose, Bruising, Other Neurological: Confusion - Medications/Allergies Allergies/Adverse Reactions: Allergies Allergy/AdvReac Type Severity Reaction Status Date / Time Penicillins Allergy Rash Verified 08/29/18 20:56 Medications: Current Medications Acetaminophen (Tylenol) 650 mg PO Q4H PRN PRN Reason: Headache/Fever/Mild Pain (1-3) Hydrocodone Bitart/Acetaminophen ([place] 5/325) 1 tab PO Q4H PRN PRN Reason: Moderate Pain (4-6) Hydrocodone Bitart/Acetaminophen ([place] 5/325) 2 tab PO Q4H PRN PRN Reason: Severe Pain (7-10) Albuterol/Ipratropium (Duoneb) 3 ml NEB [id number] [facility] Aripiprazole (Abilify) 0.5 mg PO HS [facility] Last Admin: 08/30/18 21:57 Dose: 0.5 mg Atenolol (Tenormin) 50 mg PO BID [facility] Last Admin: 08/31/18 09:33 Dose: 50 mg Benzonatate (Tessalon) 100 mg PO Q6H PRN PRN Reason: Cough Bisacodyl (Dulcolax) 10 mg PO DAILYPRN PRN PRN Reason: Constipation Calcium Carbonate (Tums) 1,000 mg PO Q4H PRN PRN Reason: Heartburn or Indigestion Clonidine (Catapres) 0.1 mg PO Q4H PRN PRN Reason: SBP > 160____ Doxazosin Mesylate (Cardura) 4 mg PO BID [facility] Last Admin: 08/31/18 09:33 Dose: 4 mg Enoxaparin Sodium (Lovenox) 40 mg SC 0900 [facility] Last Admin: 08/31/18 09:34 Dose: 40 mg Famotidine (Pepcid) 20 mg SLOW IVP Q12HR [facility] Last Admin: 08/31/18 09:34 Dose: 20 mg Guaifenesin (Robitussin Sf) 200 mg PO Q4H PRN PRN Reason: Cough Hydralazine HCl (Apresoline) 10 mg SLOW IVP Q4H PRN PRN Reason: SBP > 180 and HR < 70 Lidocaine (Lidoderm 5% Patch) 1 patch TD 1200 [facility] Miscellaneous Medication (Lidocaine Patch Removal) 1 each TOP 2359 [facility] Montelukast Sodium (Singulair) 10 mg PO DAILY [facility] Last Admin: 08/31/18 09:34 Dose: 10 mg Morphine Sulfate (Morphine) 2 mg SLOW IVP Q3H PRN PRN Reason: Moderate Pain (4-6) Last Admin: 08/30/18 01:14 Dose: 2 mg Nitroglycerin (Nitrostat) 0.4 mg SL Q5MIN PRN PRN Reason: Chest Pain Ondansetron HCl (Zofran) 4 mg IVP Q6H PRN PRN Reason: Nausea/Vomiting Last Admin: 08/31/18 11:08 Dose: 4 mg Senna/Docusate Sodium (Senokot S) 2 tab PO BID PRN PRN Reason: Constipation Simvastatin (Zocor) 10 mg PO DAILY [facility] Last Admin: 08/31/18 09:34 Dose: 10 mg Sodium Bicarbonate (Bicarbonate, Sodium) 650 mg PO TID [facility] Sodium Chloride ([place] Nasal [place] 0.65%) 0 ml EA NARE QIDPRN PRN PRN Reason: Nasal Congestion Sodium Chloride (Flush - Normal Saline) 10 ml IVF Q12HR [facility] Last Admin: 08/31/18 09:34 Dose: 10 ml Sodium Chloride (Flush - Normal Saline) 10 ml IVF PRN PRN PRN Reason: Saline Flush Tramadol HCl (Ultram) 50 mg PO Q6HR [facility] Last Admin: 08/31/18 12:10 Dose: Not Given
--- NOTE | 2018-08-31 15:04 | PRG ---
DATE OF SERVICE: 08/31/2018 SUBJECTIVE: Ms. Garza was observed sleeping earlier by the respiratory therapist and noted to have significant episodes of obstructive apnea. Her says she has the classical snore arousals at home. She was placed on BiPAP while she was asleep. OBJECTIVE: VITAL SIGNS: Heart rates in the 50s, respiratory rate 17, oximetry is 99 on room air, and blood pressure 105/53. LUNGS: Clear. HEART: Regular rhythm. ABDOMEN: Soft and nontender. EXTREMITIES: Without edema. LABORATORY DATA: Sodium is up to 116 this afternoon, BUN is 21, and creatinine is 0.84. Intake and output are 740 in, no output recorded. IMPRESSION AND PLAN: Hyperosmolar hyponatremia, likely syndrome of inappropriate antidiuretic hormone secretion secondary to fluoxetine. She continues to have slow improvement in her mental status and her electrolytes. CT of her chest, abdomen, and pelvis was ordered today. There is nothing acute that would warrant taking a nurse from the intermediate care down to CAT scan at this point in time, especially since she is on BiPAP, so this can be done at a later date. Job ID: [id number]
[2018-08-31] MEDS: Sodium Bicarbonate Tab 325 MG TAB PO SCH ×2 (15:54→20:33)
[2018-08-31] MEDS: Lidocaine 5% Patch TD SCH (15:54)
[2018-08-31] MEDS: Aripiprazole 2 MG TAB PO SCH (20:33)
[2018-08-31 21:39] LABS: Anion Gap 15 mmol/L (10-20); BUN (Urea Nitrogen) 21 mg/dL (9.8-20.1); Calc. Creatinine Clearance 79 mL/min (70-130); Carbon Dioxide 18 mmol/L (23-31); Chloride 88 mmol/L (98-107); Estimated GFR-MDRD 60; Glucose 95 mg/dL (83-110); Potassium 3.6 mmol/L (3.5-5.1)
[2018-08-31 21:47] LABS: Sodium 117 mmol/L (136-145)
[2018-09-01] MEDS: Lidocaine Patch Removal 1 EACH TOP SCH ×2 (00:45→23:41)
[2018-09-01] MEDS: traMADol HCl 50 MG TAB PO SCH ×6 (00:45→23:41)
[2018-09-01] MEDS: Doxazosin Mesylate 4 MG TAB PO SCH ×2 (08:33→20:17)
[2018-09-01] MEDS: Atenolol 50 MG TAB PO SCH ×2 (08:33→20:19)
[2018-09-01] MEDS: Enoxaparin Sodium 40 MG/0.4 ML SYRINGE SC SCH (08:33)
[2018-09-01] MEDS: Famotidine/PF 20 mg/2ml Vial SLOW IVP SCH ×2 (08:34→20:19)
[2018-09-01] MEDS: Sodium Bicarbonate Tab 325 MG TAB PO SCH ×3 (08:34→20:17)
[2018-09-01] MEDS: Montelukast Sodium 10 mg Tablet PO SCH (08:34)
[2018-09-01] MEDS: Simvastatin 5 MG TAB PO SCH (08:34)
[2018-09-01 08:52] LABS: Anion Gap 16 mmol/L (10-20); BUN (Urea Nitrogen) 28 mg/dL (9.8-20.1); Calc. Creatinine Clearance 58 mL/min (70-130); Calcium 10.2 mg/dL (7.8-10.44); Carbon Dioxide 18 mmol/L (23-31); Chloride 89 mmol/L (98-107); Estimated GFR-MDRD 42; Glucose 99 mg/dL (83-110); Potassium 3.9 mmol/L (3.5-5.1)
[2018-09-01 08:54] LABS: Sodium 119 mmol/L (136-145)
[2018-09-01] MEDS ORDERED: Lidocaine 5% Patch TD SCH (09:00)
[2018-09-01] MEDS ORDERED: Lisinopril 20 MG TAB PO SCH (09:00)
[2018-09-01 09:10] LABS: Free T4 (Free Thyroxine) 1.04 ng/dL (0.70-1.48)
[2018-09-01 11:29] LABS: Band 8 % (5-11); Eosinophils 2 % (0-10); Hemoglobin 12.6 g/dL (12.0-16.0); Lymphocytes 8 % (21-51); MDiff Complete? YES; Mean Corpuscular HGB CONC 35.4 g/dL (32.0-36.0); Mean Corpuscular Hemoglobin 32.2 pg (27.0-31.0); Mean Platelet Volume 7.1 fL (7.4-10.4); Monocytes 2 % (0-10); Neutrophil 80 % (42-75); Platelet Count 197 thou/uL (130-400); RBC Distribution Width 11.6 % (11.5-14.5); Red Blood Cell (RBC) Count 3.91 mill/uL (4.20-5.40)
[2018-09-01] MEDS: Lidocaine 5% Patch TD SCH (12:47)
--- NOTE | 2018-09-01 14:31 | PDOC.PN ---
- Subjective Encounter Start Date: 09/01/18 Encounter Start Time: 14:29 Subjective: feels much better today. appaetite better according to -: able to sit up in chair - Objective MAR Reviewed: Yes Vital Signs & Weight: Vital Signs (12 hours) Temp Pulse Resp Pulse Ox 09/01/18 11:38 96.2 F L 09/01/18 11:17 61 14 99 09/01/18 08:33 57 L 09/01/18 07:41 99 09/01/18 07:39 57 L 15 99 09/01/18 07:16 96.8 F L 09/01/18 04:00 97.3 F L Weight Admit Weight 212 lb 14.4 oz Weight 208 lb 1.6 oz Most Recent Monitor Data Heart Rate from ECG 65 NIBP 139/110 NIBP BP-Mean 119 Respiration from ECG 13 SpO2 100 I&O: 08/31/18 09/01/18 09/02/18 06:59 06:59 06:59 Intake Total 740 230 Balance 740 230 Result Diagrams: 09/01/18 10:37 09/01/18 08:12 Additional Labs: Microbiology 08/29/18 14:16 Urine Straight Catheter Urine Culture - Final Aerococcus urinae 08/29/18 15:52 Venous blood - Left Hand Blood Culture - Preliminary NO GROWTH AT 48 HOURS 08/29/18 15:47 Venous blood - Right Arm Blood Culture - Preliminary NO GROWTH AT 48 HOURS Phys Exam - Physical Examination Constitutional: NAD weak and tired looking.sitting up in chair ,eating HEENT: PERRLA, moist MMs, sclera anicteric, oral pharynx no lesions Neck: no nodes, no JVD, supple, full ROM Respiratory: no wheezing, no rales, no rhonchi, clear to auscultation bilateral Cardiovascular: RRR, no significant murmur Gastrointestinal: soft, non-tender, no distention, positive bowel sounds Musculoskeletal: no edema, pulses present Neurological: non-focal, normal sensation, moves all 4 limbs Psychiatric: normal affect, A&O x 3 Skin: no rash Dx/Plan (1) Hyponatremia Code(s): E87.1 - HYPO-OSMOLALITY AND HYPONATREMIA Status: Acute Comment: Serial BMP.Multifactorial.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 clinically dry.defer to Nephrology for IVF given severe Hyponatremia (4) Metabolic acidosis Code(s): E87.2 - ACIDOSIS Status: Acute Comment: on Bicitra.Improving (5) Hypokalemia Code(s): E87.6 - HYPOKALEMIA Status: Acute Comment: replace and recheck prn (6) Chronic back pain Code(s): M54.9 - DORSALGIA, UNSPECIFIED; G89.29 - OTHER CHRONIC PAIN Status: Chronic (7) HTN (hypertension) Code(s): I10 - ESSENTIAL (PRIMARY) HYPERTENSION Status: Chronic (8) Depression Code(s): F32.9 - MAJOR DEPRESSIVE DISORDER, SINGLE EPISODE, UNSPECIFIED Status : Chronic Qualifiers: Depression Type: major depressive disorder Comment: Prozac stopped due to hyponatremia - Plan PT/OT, respiratory therapy, incentive spirometry, DVT proph w/SCDs clinically better. monitor lytes -: sodium getting better -: Breathing improved w CPAP last night w improved daytime mentation -: suspect undiagnosed MANDEEP. OP PCCM referral w/b done -: Encourage Ambulation & PO intake * . Review of Systems - Review of Systems Constitutional: weakness, malaise. negative: fever, chills, sweats, other ENT: negative: Ear Pain, Ear Discharge, Nose Pain, Nose Discharge, Nose Congestion, Mouth Pain, Mouth Swelling, Throat Pain, Throat Swelling, Other Respiratory: SOB with Excertion. negative: Cough, Dry, Shortness of Breath, Hemoptysis, Pleuritic Pain, Sputum, Wheezing Gastrointestinal: Nausea Genitourinary: negative: Dysuria, Frequency, Incontinence, Hematuria, Retention , Other Musculoskeletal: negative: Neck Pain, Shoulder Pain, Arm Pain, Back Pain, Hand Pain, Leg Pain, Foot Pain, Other Skin: negative: Rash, Lesions, Jose, Bruising, Other Neurological: negative: Weakness, Numbness, Incoordination, Change in Speech, Confusion, Seizures, Other - Medications/Allergies Allergies/Adverse Reactions: Allergies Allergy/AdvReac Type Severity Reaction Status Date / Time Penicillins Allergy Rash Verified 08/29/18 20:56 Medications: Current Medications Acetaminophen (Tylenol) 650 mg PO Q4H PRN PRN Reason: Headache/Fever/Mild Pain (1-3) Hydrocodone Bitart/Acetaminophen ([place] 5/325) 1 tab PO Q4H PRN PRN Reason: Moderate Pain (4-6) Hydrocodone Bitart/Acetaminophen ([place] 5/325) 2 tab PO Q4H PRN PRN Reason: Severe Pain (7-10) Albuterol/Ipratropium (Duoneb) 3 ml NEB [id number] [facility] Last Admin: 09/01/18 11:17 Dose: 3 ml Aripiprazole (Abilify) 0.5 mg PO HS [facility] Last Admin: 08/31/18 20:33 Dose: 0.5 mg Atenolol (Tenormin) 50 mg PO BID [facility] Last Admin: 09/01/18 08:33 Dose: 50 mg Benzonatate (Tessalon) 100 mg PO Q6H PRN PRN Reason: Cough Bisacodyl (Dulcolax) 10 mg PO DAILYPRN PRN PRN Reason: Constipation Calcium Carbonate (Tums) 1,000 mg PO Q4H PRN PRN Reason: Heartburn or Indigestion Clonidine (Catapres) 0.1 mg PO Q4H PRN PRN Reason: SBP > 160____ Doxazosin Mesylate (Cardura) 4 mg PO BID [facility] Last Admin: 09/01/18 08:33 Dose: 4 mg Enoxaparin Sodium (Lovenox) 40 mg SC 0900 [facility] Last Admin: 09/01/18 08:33 Dose: 40 mg Famotidine (Pepcid) 20 mg SLOW IVP Q12HR [facility] Last Admin: 09/01/18 08:34 Dose: 20 mg Guaifenesin (Robitussin Sf) 200 mg PO Q4H PRN PRN Reason: Cough Hydralazine HCl (Apresoline) 10 mg SLOW IVP Q4H PRN PRN Reason: SBP > 180 and HR < 70 Levofloxacin 500 mg/ Device 100 mls @ 100 mls/hr IVPB Q24HR [facility] Lidocaine (Lidoderm 5% Patch) 1 patch TD 1200 [facility] Last Admin: 09/01/18 12:47 Dose: 1 patch Miscellaneous Medication (Lidocaine Patch Removal) 1 each TOP 2359 [facility] Last Admin: 09/01/18 00:45 Dose: 1 each Montelukast Sodium (Singulair) 10 mg PO DAILY [facility] Last Admin: 09/01/18 08:34 Dose: 10 mg Morphine Sulfate (Morphine) 2 mg SLOW IVP Q3H PRN PRN Reason: Moderate Pain (4-6) Last Admin: 08/30/18 01:14 Dose: 2 mg Nitroglycerin (Nitrostat) 0.4 mg SL Q5MIN PRN PRN Reason: Chest Pain Ondansetron HCl (Zofran) 4 mg IVP Q6H PRN PRN Reason: Nausea/Vomiting Last Admin: 08/31/18 11:08 Dose: 4 mg Senna/Docusate Sodium (Senokot S) 2 tab PO BID PRN PRN Reason: Constipation Last Admin: 09/01/18 12:52 Dose: 2 tab Simvastatin (Zocor) 10 mg PO DAILY [facility] Last Admin: 09/01/18 08:34 Dose: 10 mg Sodium Bicarbonate (Bicarbonate, Sodium) 650 mg PO TID [facility] Last Admin: 09/01/18 14:14 Dose: 650 mg Sodium Chloride ([place] Nasal [place] 0.65%) 0 ml EA NARE QIDPRN PRN PRN Reason: Nasal Congestion Sodium Chloride (Flush - Normal Saline) 10 ml IVF Q12HR [facility] Last Admin: 09/01/18 08:35 Dose: 10 ml Sodium Chloride (Flush - Normal Saline) 10 ml IVF PRN PRN PRN Reason: Saline Flush Tramadol HCl (Ultram) 50 mg PO Q6HR [facility] Last Admin: 09/01/18 13:59 Dose: 50 mg
[2018-09-01] MEDS ORDERED: Bisacodyl 10 MG SUPP PR SCH (15:45)
[2018-09-01] MEDS ORDERED: Sodium Chloride 0.9% 500 ML IV SCH (15:45)
--- NOTE | 2018-09-01 16:25 | PRG ---
DATE OF SERVICE: 09/01/2018 SUBJECTIVE: A 77-year-old female admitted due to generalized weakness, nausea, dizziness associated with mental status change and frequent falls. The patient was found to have severe hyponatremia with sodium of 105. She is more alert today. Nausea has subsided. Denied abdominal pain, chest pain, fever, or vomiting. The patient has not had a bowel movement since admission and reported last bowel movement was about a week ago. OBJECTIVE: VITAL SIGNS: Temperature 96.2, pulse 61, respiratory rate 14, SpO2 of 99% on room air, and blood pressure is 112/67. GENERAL: Obese female, in no obvious distress. Afebrile. Anicteric. Acyanotic. HEENT: Normocephalic, atraumatic. Pupils are reactive to light. Oral mucosa is moist. RESPIRATORY: Fair air entry bilaterally with mildly prolonged respiratory phase and few rhonchi. Work of breathing is mildly increased. CARDIAC: Regular rhythm and rate with normal heart sounds 1 and 2. GASTROINTESTINAL: Obese, soft, nontender, and nondistended with normal bowel sounds. EXTREMITIES: Grossly normal, looking atraumatic with no edema or erythema. NEUROLOGIC: Conscious and alert and oriented x3 with appropriate mental status. The patient is conversational. Moves all extremities. DIAGNOSTIC DATA: BMP showed sodium 119, potassium 3.9, chloride 89, CO2 of 18, BUN 28, creatinine 1.25, glucose 99, and potassium 10.2. ASSESSMENT AND PLAN: 1. Acute kidney injury: Most likely due to prerenal, cause is related to poor oral intake. Creatinine is up from baseline 0.8 to 1.25 today. BUN also is up from 21 to 28. 2. Hyponatremia, multifactorial in etiology with elevated urine osmolality and urine sodium consistent with inappropriate ADH secretion. The patient was on Prozac, which was thought to be responsible for this. The patient also was on hydrochlorothiazide, which impairs renal concentrating ability. We will continue fluid restriction. Mild dehydration. We will treat the patient with cautious IV fluids and encourage liberal oral intake. 3. Presumed obstructive sleep apnea. Management as per portal developer. 4. Constipation: We will give the patient Dulcolax suppository. 5. Hypokalemia. We will replete with potassium chloride. 6. Metabolic acidosis: Improving. We will continue oral sodium bicarbonate. 7. Asthma with exacerbation. Continue steroid and bronchodilators as per portal developer. Job ID: [id number]
--- NOTE | 2018-09-01 16:33 | PRG ---
DATE OF SERVICE: 09/01/2018 SUBJECTIVE: Bhumika Garza has no complaints. She would not wear her BiPAP all night. OBJECTIVE: VITAL SIGNS: She is afebrile. Heart rate 60, respiratory rate 14, and oximetry is 99%. GENERAL: She is in no distress. She was sleeping in a chair when I walked in the room. LUNGS: Clear. HEART: Regular rhythm. ABDOMEN: Soft and nontender. EXTREMITIES: Without edema. LABORATORY DATA: White count 16.0, hemoglobin 12.6, and platelets 197,000. Sodium 119, potassium 3.9, chloride 89, bicarb 18, BUN 28, and creatinine 1.25. Cortisol level is 14. IMPRESSION: 1. Hyperosmolar hyponatremia, improving slowly, likely related to fluoxetine. No other clear source has been identified. 2. Obstructive sleep apnea witnessed by respiratory therapy. She is not cooperating with wearing CPAP. 3. Deconditioning. PLAN: We will continue supportive care. Job ID: [id number]
[2018-09-01] MEDS: Sodium Chloride 0.9% 1,000 ML IV SCH (18:16)
[2018-09-01] MEDS: Aripiprazole 2 MG TAB PO SCH (20:17)
[2018-09-01 21:32] LABS: Anion Gap 12 mmol/L (10-20); BUN (Urea Nitrogen) 31 mg/dL (9.8-20.1); Calc. Creatinine Clearance 58 mL/min (70-130); Calcium 9.9 mg/dL (7.8-10.44); Carbon Dioxide 23 mmol/L (23-31); Chloride 87 mmol/L (98-107); Estimated GFR-MDRD 42; Glucose 110 mg/dL (83-110); Potassium 3.7 mmol/L (3.5-5.1)
[2018-09-01 21:36] LABS: Sodium 118 mmol/L (136-145)
[2018-09-02] MEDS: traMADol HCl 50 MG TAB PO SCH ×4 (00:36→18:06)
[2018-09-02] MEDS: HYDROcodone/Acetaminophen 5/325 mg Tablet PO PRN ×2 (02:37→17:22)
[2018-09-02 05:49] LABS: Anion Gap 13 mmol/L (10-20); BUN (Urea Nitrogen) 29 mg/dL (9.8-20.1); Calc. Creatinine Clearance 68 mL/min (70-130); Calcium 9.9 mg/dL (7.8-10.44); Carbon Dioxide 22 mmol/L (23-31); Chloride 90 mmol/L (98-107); Estimated GFR-MDRD 51; Glucose 94 mg/dL (83-110); Potassium 4.1 mmol/L (3.5-5.1); Sodium 121 mmol/L (136-145)
[2018-09-02 06:15] LABS: #Basophils 0.1 thou/uL (0.0-0.2); #Eosinphils 0.3 thou/uL (0.0-0.7); #Monocytes 1.2 thou/uL (0.11-0.59); #Neutrophils 13.2 thou/uL (1.40-6.50); %Basophils 0.9 % (0.0-1.0); %Eosinophils 1.8 % (0.0-10.0); %Lymphocytes 6.2 % (21.0-51.0); %Monocytes 7.8 % (0.0-10.0); %Neutrophils 83.3 % (42.0-75.0); Hemoglobin 12.3 g/dL (12.0-16.0); Mean Corpuscular HGB CONC 35.8 g/dL (32.0-36.0); Mean Corpuscular Hemoglobin 32.8 pg (27.0-31.0); Mean Corpuscular Volume 91.6 fL (78.0-98.0); Mean Platelet Volume 6.5 fL (7.4-10.4); Platelet Count 194 thou/uL (130-400); RBC Distribution Width 11.9 % (11.5-14.5); Red Blood Cell (RBC) Count 3.75 mill/uL (4.20-5.40); White Blood Cell (WBC) Count 15.9 thou/uL (4.8-10.8)
[2018-09-02] MEDS ORDERED: Iopamidol 370 76% 100 ML VIAL ONE (08:36)
--- NOTE | 2018-09-02 10:02 | PRG ---
DATE OF SERVICE: 09/02/2018 SUBJECTIVE: A 77-year-old obese female with hypertension and asthma, who was admitted due to confusion as well as worsening dizziness and gait instability/falls. The patient was found to have severe hyponatremia with serum sodium of 105. She is feeling better. Denied nausea and dizziness. No abdominal pain or dysuria. Oral intake is improving. The patient had a bowel motion last night. OBJECTIVE: VITAL SIGNS: Temperature 97.2, heart rate 65, respiratory rate 13, SpO2 of 100% on room air, blood pressure is 109/48. GENERAL: Obese female, in no obvious distress. Afebrile. Anicteric. Acyanotic. HEENT: Normocephalic, atraumatic. Pupils are equal and reacting to light. Oral mucosa is moist. RESPIRATORY: Fair air entry bilaterally with prolonged expiration and few scattered rhonchi. No obvious crackle is noted. CARDIOVASCULAR: Regular rhythm and rate with normal heart sounds one and two. GI: Obese, soft, nontender, nondistended with normal bowel sounds. EXTREMITIES: Grossly normal looking, atraumatic with no edema, erythema, or cyanosis. Distal pulses are palpable. NEUROLOGIC: Conscious and alert, oriented x3 with appropriate mental status. Cranial nerves 2 through 12 are intact. The patient is conversational with appropriate mentation. DIAGNOSTIC DATA: CBC showed WBC count of 15.9, hemoglobin of 12.3, MCV of 91.6, platelet of 194. BMP showed sodium 121, potassium 4.1, chloride 90, CO2 of 22, creatinine 1.06, BUN 29, glucose 94, and calcium 9.9. ASSESSMENT AND PLAN: 1. Hyponatremia: Since multifactorial with medication-induced SIADH, impaired urine concentrating ability due to hydrochlorothiazide as well as fluid depletion with appropriate ADH secretion interplaying. Sodium is trending up. The patient received hypertonic solution boluses earlier on. Received normal saline bolus yesterday due to BRINA. We will continue normal saline at 50 mL/hour, and monitor serum electrolytes and sodium. 2. Acute kidney injury: Prerenal due to poor oral intake and fluid depletion. Creatinine had gone up from 0.8 to 1.25, but is down to 1.02 today following IV fluid therapy. We will continue gentle fluids and normal saline therapy while monitoring renal function and serum sodium. 3. Acute encephalopathy: Due to hyponatremia. 4. Hypokalemia. Repleted with potassium chloride. 5. Gait instability: Due to physical deconditioning as well as electrolyte derangement. PT per primary attending. 6. Constipation. Stool softener as per primary attending. 7. Metabolic acidosis: Improving. We will continue sodium bicarbonate. Job ID: [id number]
--- NOTE | 2018-09-02 10:13 | PRG ---
DATE OF SERVICE: 09/02/2018 SUBJECTIVE: Bhumika Garza refuses to wear BiPAP at night. She is still mildly encephalopathic. OBJECTIVE: VITAL SIGNS: Heart rate in the 60s, blood pressure 109/48, respiratory rates in the teens, oximetry is 100%. LUNGS: Distant and clear. HEART: Regular rhythm. ABDOMEN: Soft. EXTREMITIES: Without edema. LABORATORY DATA: White count 15.9, hemoglobin 12.3, platelets 194. Sodium 121, potassium 4.1, chloride 90, bicarb 22, BUN 29, creatinine 1.06. IMPRESSION: 1. 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 Her sodium continues to gradually improve with fluid restriction. 2. Mild encephalopathy, likely metabolic. 3. Mild asthma exacerbation, clinically improved. She continues on Singulair with her nebulizer treatments. She is not bronchospastic at this time. 4. Hypertension. 5. Acute on chronic kidney disease, approaching her baseline. She could be transferred out of the intermediate care unit, although she probably will need a sitter if she goes to a medical bed or at least a bed alarm close to the nursing station. Job ID: [id number]
[2018-09-02] MEDS: Famotidine/PF 20 mg/2ml Vial SLOW IVP SCH ×2 (10:30→20:26)
[2018-09-02] MEDS: Enoxaparin Sodium 40 MG/0.4 ML SYRINGE SC SCH (10:30)
[2018-09-02] MEDS: Sodium Bicarbonate Tab 325 MG TAB PO SCH ×3 (10:30→20:27)
[2018-09-02] MEDS: Montelukast Sodium 10 mg Tablet PO SCH (10:30)
[2018-09-02] MEDS: Doxazosin Mesylate 4 MG TAB PO SCH ×2 (10:30→20:27)
[2018-09-02] MEDS: Atenolol 50 MG TAB PO SCH ×2 (10:30→20:27)
[2018-09-02] MEDS: Simvastatin 5 MG TAB PO SCH (10:30)
[2018-09-02] MEDS: Lidocaine 5% Patch TD SCH (13:21)
--- NOTE | 2018-09-02 14:26 | PDOC.PN ---
- Subjective Encounter Start Date: 09/02/18 Encounter Start Time: 14:24 Subjective: feels much better.worked w Pt and now tired -: no nausea/better appetite -: does not like to wear CPAP all night.has had sleep study in OP setting - Objective MAR Reviewed: Yes Vital Signs & Weight: Vital Signs (12 hours) Temp Pulse Resp Pulse Ox 09/02/18 11:39 96.5 F L 09/02/18 11:06 66 16 09/02/18 10:30 55 L 09/02/18 07:53 98 09/02/18 07:14 97.2 F L 09/02/18 06:12 99 09/02/18 06:10 55 L 19 99 09/02/18 03:44 97.2 F L Weight Admit Weight 212 lb 14.4 oz Weight 210 lb 15.718 oz Most Recent Monitor Data Heart Rate from ECG 71 NIBP 120/84 NIBP BP-Mean 96 Respiration from ECG 21 SpO2 99 I&O: 09/01/18 09/02/18 09/03/18 06:59 06:59 06:59 Intake Total 230 1220 Balance 230 1220 Result Diagrams: 09/02/18 05:17 09/02/18 05:17 Additional Labs: Microbiology 08/29/18 14:16 Urine Straight Catheter Urine Culture - Final Aerococcus urinae 08/29/18 15:52 Venous blood - Left Hand Blood Culture - Preliminary NO GROWTH AT 48 HOURS 08/29/18 15:47 Venous blood - Right Arm Blood Culture - Preliminary NO GROWTH AT 48 HOURS Laboratory Tests 08/29/18 08/29/18 08/29/18 14:27 14:27 17:36 WBC 18.7 H Sodium 105 L* 106 L* Creatinine 08/29/18 08/30/18 08/30/18 20:10 00:24 04:44 WBC 16.5 H Sodium 107 L* 109 L* Creatinine 08/30/18 08/30/18 08/30/18 04:44 10:33 16:02 WBC Sodium 110 L* 109 L* 112 L* Creatinine 08/30/18 08/31/18 08/31/18 22:22 07:42 12:36 WBC Sodium 110 L* 114 L* 116 L* Creatinine 08/31/18 09/01/18 09/01/18 21:12 08:12 10:37 WBC 16.0 H Sodium 117 L* 119 L* Creatinine 0.92 1.25 H 09/01/18 09/02/18 09/02/18 21:00 05:17 05:17 WBC 15.9 H Sodium 118 L* 121 L Creatinine 1.24 H 1.06 Phys Exam - Physical Examination Constitutional: NAD weak and tired looking but awake and alert HEENT: PERRLA, moist MMs, sclera anicteric, oral pharynx no lesions Neck: no nodes, no JVD, supple, full ROM Respiratory: no wheezing, no rales, no rhonchi, clear to auscultation bilateral Cardiovascular: RRR, no significant murmur Gastrointestinal: soft, non-tender, no distention, positive bowel sounds Musculoskeletal: no edema, pulses present Neurological: non-focal, normal sensation, moves all 4 limbs Psychiatric: normal affect, A&O x 3 Skin: no rash Dx/Plan (1) Hyponatremia Code(s): E87.1 - HYPO-OSMOLALITY AND HYPONATREMIA Status: Acute Comment: Serial BMP.Multifactorial.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 clinically dry.defer to Nephrology for IVF given severe Hyponatremia (4) Metabolic acidosis Code(s): E87.2 - ACIDOSIS Status: Acute Comment: on Bicitra.Improving (5) Hypokalemia Code(s): E87.6 - HYPOKALEMIA Status: Acute Comment: replace and recheck prn (6) Chronic back pain Code(s): M54.9 - DORSALGIA, UNSPECIFIED; G89.29 - OTHER CHRONIC PAIN Status: Chronic (7) HTN (hypertension) Code(s): I10 - ESSENTIAL (PRIMARY) HYPERTENSION Status: Chronic (8) Depression Code(s): F32.9 - MAJOR DEPRESSIVE DISORDER, SINGLE EPISODE, UNSPECIFIED Status : Chronic Qualifiers: Depression Type: major depressive disorder Comment: Prozac stopped due to hyponatremia - Plan continue antibiotics, PT/OT, respiratory therapy, incentive spirometry, out of bed/ambulate, DVT proph w/SCDs clinically better.cont gentle NS for BRINA.sodium continues to improve -: Ok to transfer out of ICU. -: amlabs -: rehab eval-discussed w pt and she agrees * . Review of Systems - Review of Systems Constitutional: weakness, malaise. negative: fever, chills, sweats, other ENT: negative: Ear Pain, Ear Discharge, Nose Pain, Nose Discharge, Nose Congestion, Mouth Pain, Mouth Swelling, Throat Pain, Throat Swelling, Other Respiratory: Cough, Dry, Shortness of Breath, SOB with Excertion. negative: Hemoptysis, Pleuritic Pain, Sputum, Wheezing Cardiovascular: negative: chest pain, palpitations, orthopnea, paroxysmal nocturnal dyspnea, edema, light headedness, other Gastrointestinal: negative: Nausea, Vomiting, Abdominal Pain, Diarrhea, Constipation, Melena, Hematochezia, Other Genitourinary: negative: Dysuria, Frequency, Incontinence, Hematuria, Retention , Other Musculoskeletal: negative: Neck Pain, Shoulder Pain, Arm Pain, Back Pain, Hand Pain, Leg Pain, Foot Pain, Other Skin: negative: Rash, Lesions, Jose, Bruising, Other Neurological: negative: Weakness, Numbness, Incoordination, Change in Speech, Confusion, Seizures, Other - Medications/Allergies Allergies/Adverse Reactions: Allergies Allergy/AdvReac Type Severity Reaction Status Date / Time Penicillins Allergy Rash Verified 08/29/18 20:56 Medications: Current Medications Acetaminophen (Tylenol) 650 mg PO Q4H PRN PRN Reason: Headache/Fever/Mild Pain (1-3) Hydrocodone Bitart/Acetaminophen ([place] 5/325) 1 tab PO Q4H PRN PRN Reason: Moderate Pain (4-6) Last Admin: 09/02/18 02:37 Dose: 1 tab Hydrocodone Bitart/Acetaminophen ([place] 5/325) 2 tab PO Q4H PRN PRN Reason: Severe Pain (7-10) Albuterol/Ipratropium (Duoneb) 3 ml NEB [id number] [facility] Last Admin: 09/02/18 11:06 Dose: 3 ml Aripiprazole (Abilify) 0.5 mg PO HS [facility] Last Admin: 09/01/18 20:17 Dose: 0.5 mg Atenolol (Tenormin) 50 mg PO BID [facility] Last Admin: 09/02/18 10:30 Dose: 50 mg Benzonatate (Tessalon) 100 mg PO Q6H PRN PRN Reason: Cough Bisacodyl (Dulcolax) 10 mg PO DAILYPRN PRN PRN Reason: Constipation Calcium Carbonate (Tums) 1,000 mg PO Q4H PRN PRN Reason: Heartburn or Indigestion Clonidine (Catapres) 0.1 mg PO Q4H PRN PRN Reason: SBP > 160____ Doxazosin Mesylate (Cardura) 4 mg PO BID [facility] Last Admin: 09/02/18 10:30 Dose: 4 mg Enoxaparin Sodium (Lovenox) 40 mg SC 0900 [facility] Last Admin: 09/02/18 10:30 Dose: 40 mg Famotidine (Pepcid) 20 mg SLOW IVP Q12HR [facility] Last Admin: 09/02/18 10:30 Dose: 20 mg Guaifenesin (Robitussin Sf) 200 mg PO Q4H PRN PRN Reason: Cough Hydralazine HCl (Apresoline) 10 mg SLOW IVP Q4H PRN PRN Reason: SBP > 180 and HR < 70 Levofloxacin 500 mg/ Device 100 mls @ 100 mls/hr IVPB Q24HR [facility] Last Admin: 09/01/18 18:16 Dose: 100 mls Sodium Chloride (Normal Saline 0.9%) 1,000 mls @ 50 mls/hr IV .Q20H [facility] Last Admin: 09/01/18 18:16 Dose: 1,000 mls Lidocaine (Lidoderm 5% Patch) 1 patch TD 1200 [facility] Last Admin: 09/02/18 13:21 Dose: 1 patch Miscellaneous Medication (Lidocaine Patch Removal) 1 each TOP 2359 [facility] Last Admin: 09/01/18 23:41 Dose: 1 each Montelukast Sodium (Singulair) 10 mg PO DAILY [facility] Last Admin: 09/02/18 10:30 Dose: 10 mg Morphine Sulfate (Morphine) 2 mg SLOW IVP Q3H PRN PRN Reason: Moderate Pain (4-6) Last Admin: 08/30/18 01:14 Dose: 2 mg Nitroglycerin (Nitrostat) 0.4 mg SL Q5MIN PRN PRN Reason: Chest Pain Ondansetron HCl (Zofran) 4 mg IVP Q6H PRN PRN Reason: Nausea/Vomiting Last Admin: 08/31/18 11:08 Dose: 4 mg Senna/Docusate Sodium (Senokot S) 2 tab PO BID PRN PRN Reason: Constipation Last Admin: 09/01/18 12:52 Dose: 2 tab Simvastatin (Zocor) 10 mg PO DAILY [facility] Last Admin: 09/02/18 10:30 Dose: 10 mg Sodium Bicarbonate (Bicarbonate, Sodium) 650 mg PO TID [facility] Last Admin: 09/02/18 10:30 Dose: 650 mg Sodium Chloride ([place] Nasal [place] 0.65%) 0 ml EA NARE QIDPRN PRN PRN Reason: Nasal Congestion Sodium Chloride (Flush - Normal Saline) 10 ml IVF Q12HR [facility] Last Admin: 09/02/18 10:31 Dose: 10 ml Sodium Chloride (Flush - Normal Saline) 10 ml IVF PRN PRN PRN Reason: Saline Flush Tramadol HCl (Ultram) 50 mg PO Q6HR [facility] Last Admin: 09/02/18 13:21 Dose: 50 mg
[2018-09-02] MEDS: Aripiprazole 2 MG TAB PO SCH (20:22)
[2018-09-02] MEDS: Sodium Chloride 0.9% 1,000 ML IV SCH (20:29)
[2018-09-03] MEDS: traMADol HCl 50 MG TAB PO SCH ×5 (00:01→23:56)
[2018-09-03] MEDS: Lidocaine Patch Removal 1 EACH TOP SCH ×2 (00:02→23:56)
[2018-09-03 05:20] LABS: #Eosinphils 0.2 thou/uL (0.0-0.7); #Lymphocytes 1.3 thou/uL (1.20-3.40); #Monocytes 1.1 thou/uL (0.11-0.59); #Neutrophils 16.3 thou/uL (1.40-6.50); %Eosinophils 1.3 % (0.0-10.0); %Lymphocytes 6.9 % (21.0-51.0); %Monocytes 5.8 % (0.0-10.0); Hemoglobin 11.6 g/dL (12.0-16.0); Mean Corpuscular HGB CONC 34.4 g/dL (32.0-36.0); Mean Corpuscular Hemoglobin 32.4 pg (27.0-31.0); Mean Corpuscular Volume 94.1 fL (78.0-98.0); Platelet Count 213 thou/uL (130-400); RBC Distribution Width 11.9 % (11.5-14.5); Red Blood Cell (RBC) Count 3.57 mill/uL (4.20-5.40); White Blood Cell (WBC) Count 18.9 thou/uL (4.8-10.8)
[2018-09-03 05:41] LABS: Anion Gap 10 mmol/L (10-20); BUN (Urea Nitrogen) 19 mg/dL (9.8-20.1); Calc. Creatinine Clearance 95 mL/min (70-130); Calcium 9.4 mg/dL (7.8-10.44); Carbon Dioxide 21 mmol/L (23-31); Chloride 94 mmol/L (98-107); Estimated GFR-MDRD 73; Glucose 84 mg/dL (83-110); Sodium 121 mmol/L (136-145)
[2018-09-03] MEDS ORDERED: Furosemide 100 MG/10 ML VIAL SLOW IVP SCH (09:00)
--- NOTE | 2018-09-03 09:21 | RAD ---
EXAM: CHEST ONE VIEW: History: Intubation, shortness of breath. Comparison: 08-29-18 FINDINGS: No NG tube or endotracheal tube is demonstrated. Monitor leads overlie the chest. Old granulomatous d isease. Minimal increased density in the left costophrenic angle, evidence for some left pleural effu yulia. No significant change. IMPRESSION: Increased density in the left costophrenic angle, evidence for left pleural effusion. Old granulomato us disease. No evidence for pneumonia. Continued short term follow up for clearing or stability. POS: C
--- NOTE | 2018-09-03 09:43 | PRG ---
DATE OF SERVICE: 09/03/2018 SUBJECTIVE: A 77-year-old female admitted due to worsening weakness, dizziness, nausea, and confusion. The patient was found to have severe hyponatremia. Nausea has improved and patient is tolerating oral intake more. Denied frequent loose stool. The patient also denied fever or chest pain. OBJECTIVE: VITAL SIGNS: Temperature 97.3, pulse 66, respiratory rate 17, SpO2 99% on room air, blood pressure is 124/86. GENERAL: Sleepy, obese female, in no obvious distress. Afebrile. Anicteric. Acyanotic. HEENT: Normocephalic, atraumatic. Pupils are reacting to light. Oral mucosa is moist. CARDIOVASCULAR: Regular rhythm and rate with normal heart sounds 1 and 2. RESPIRATORY: Fair air entry bilaterally with prolonged expiration. Work of breathing is increased. GI: Abdomen is obese, soft, nontender, nondistended with normal bowel sounds. EXTREMITIES: Grossly normal looking, atraumatic with no obvious edema or erythema. NEUROLOGIC: The patient is sleepy, but arousable. Conversational. Oriented x3. DIAGNOSTIC DATA: CBC showed WBC count of 18.9, hemoglobin of 11.6, MCV of 94.1, platelet of 213. BMP showed sodium 121, potassium 4.0, chloride 94, CO2 of 21, anion gap 10, BUN 19, creatinine 0.77, glucose 84, calcium 9.4. ASSESSMENT AND PLAN: 1. Hyponatremia: Severe and symptomatic. Thought to be multifactorial in etiology with SIADH most likely from medication with possible volume depletion with appropriate ADH secretion. has improved from 105 on admission to 121. With resolution of acute kidney injury, we will discontinue normal saline and continue fluid restriction 800 mL per 24 hours. 2. Acute encephalopathy: Multifactorial from severe hyponatremia and possible infection/urinary tract infection. Improved. The patient is still drowsy and sleepy this morning. 3. Acute kidney injury: Prerenal due to poor oral intake and fluid depletion. Creatinine is back to 0.77 from 1.25. We will discontinue normal saline. 4. Hypokalemia: Repleted. 5. Metabolic acidosis: Improving. Continue sodium bicarbonate. 6. Persistent leukocytosis: Etiology is unclear. Despite antibiotic therapy with Levaquin, white blood cell count is trending up. We defer to the primary attending for further evaluation and treatment. 7. Urinary tract infection: Treatment as per primary attending. 8. We will recheck renal function and electrolytes with discontinuation of IV fluids. Job ID: [id number]
[2018-09-03] MEDS: Enoxaparin Sodium 40 MG/0.4 ML SYRINGE SC SCH (09:52)
[2018-09-03] MEDS: Simvastatin 5 MG TAB PO SCH (09:53)
[2018-09-03] MEDS: Famotidine/PF 20 mg/2ml Vial SLOW IVP SCH ×2 (09:54→21:04)
[2018-09-03] MEDS: Montelukast Sodium 10 mg Tablet PO SCH (09:54)
[2018-09-03] MEDS: Sodium Bicarbonate Tab 325 MG TAB PO SCH ×3 (09:54→21:04)
[2018-09-03] MEDS: Atenolol 50 MG TAB PO SCH ×2 (09:54→21:05)
[2018-09-03] MEDS: Doxazosin Mesylate 4 MG TAB PO SCH ×2 (09:54→21:03)
--- NOTE | 2018-09-03 10:49 | PRG ---
DATE OF SERVICE: 09/03/2018 SUBJECTIVE: Bhumika Garza has no complaints. She still mildly encephalopathic. She is oriented to person, place, but no today. OBJECTIVE: VITAL SIGNS: Blood pressure 156/77, heart rate is in 60s, respiratory rate in the teens. Still refuses CPAP. LUNGS: Clear. HEART: Regular rhythm. ABDOMEN: Soft. EXTREMITIES: Without edema. LABORATORY DATA: White count 18.9, hemoglobin 11.6, and platelets 213,000. Sodium is up to 121, potassium is 4, chloride 94, bicarb 21, BUN 19, and creatinine 0.77. Apparently, Lasix was ordered today. She is also on Levaquin for Aerococcus isolated from her urine. It is not clear to me whether or not this is typically sensitive to quinolone. In my opinion, she is stable to move out of the intermediate care unit to a medical bed. She will still need to be watched closely. Her asthma is stable. She will not wear cpap. Job ID: [id number] MTDD
--- NOTE | 2018-09-03 11:32 | CT ---
EXAM: CT chest, abdomen, and pelvis with IV contrast: HISTORY: Sepsis, hyponatremia COMPARISON: None FINDINGS: CT THORAX: Lungs: There is scattered mild atelectasis present. A calcification is seen at the left lung base whi ch may be pleural-based and related to pleural-based calcification versus calcified granuloma at the left lung base. No discrete noncalcified pulmonary nodule or mass is seen. Pleura: Very tiny bilateral pleural effusions are seen with associated passive atelectasis. Lymph nodes: No lymphadenopathy. Mediastinum: Few calcified mediastinal lymph nodes are seen related to prior granulomatous disease. T he thoracic aorta is normal in caliber without aortic dissection. Vascular calcifications are seen in the thoracic aorta and to lesser extent involving the coronary arteries. Chest wall: No abnormalities CT ABDOMEN AND PELVIS: Liver: Scattered calcified granulomata are seen. Gallbladder: Multiple gallbladder calculi are visualized.\ Pancreas: Within normal limits. Spleen:Multiple splenic granulomata are visualized. Adrenal glands: Within normal limits. Kidneys: Mildly lobulated appearance which may relate to lobulation. There is no hydronephrosis . Urinary Bladder: Normal appearance Reproductive organs: Within normal limits for patient's age. Bowel: Opacified loops of small bowel are normal in caliber. There is a very small hiatal hernia pres ent. Colonic diverticulosis is identified. The appendix is visualized and normal in caliber. While there is suggestion of bowel wall thickening involving the ascending colon, this area demonstrates fa t density within the wall suggesting prior infectious or inflammatory process. However, there is questionable mild thickening involving the descending colon, but the descending colon is decompressed . Colitis cannot be entirely excluded. Adenopathy:No lymphadenopathy within the abdomen or pelvis. Peritoneum: No free fluid or fluid collection is seen. No free intraperitoneal gas is identified. Abdominal wall: Tiny fat-containing umbilical hernia is present. Mild nonspecific edema is seen in th e region of the flank regions bilaterally as well as posteriorly. Osseous structures: Multilevel degenerative changes are seen in the spine with left convex curvature of the lumbar spine. Vacuum phenomenon is seen at multiple levels of the lumbar spine and lower thoracic spine. IMPRESSION: 1. The descending colon is decompressed, but the wall of the colon in this region does appear mildly thickened. Colitis involving the descending and sigmoid colon is a possibility. Multiple colonic diverticula are seen throughout the colon. There are findings more suggestive of a prior infectious o r inflammatory process in the ascending colon given submucosal fat in this region. 2. Tiny bilateral pleural effusions and passive atelectasis with additional scattered atelectasis wit hin the lungs bilaterally. 3. Tiny hiatal hernia. 4. Cholelithiasis.
[2018-09-03] MEDS: Lidocaine 5% Patch TD SCH (15:34)
--- NOTE | 2018-09-03 16:03 | PDOC.PN ---
- Subjective Encounter Start Date: 09/03/18 Encounter Start Time: 16:02 (t) Subjective: feels weak and tired but RN reports drowsiness -: c/o abd pain.RN reports multiple loose stools - Objective MAR Reviewed: Yes Vital Signs & Weight: Vital Signs (12 hours) Temp Pulse Pulse Pulse Resp BP BP 09/03/18 15:57 64 15 09/03/18 13:35 66 70 118/79 118/79 09/03/18 11:06 76 18 09/03/18 09:54 66 09/03/18 07:55 09/03/18 07:20 09/03/18 07:19 66 17 09/03/18 07:10 97.3 F L Pulse Ox Pulse Ox Pulse Ox 09/03/18 15:57 99 09/03/18 13:35 99 95 09/03/18 11:06 09/03/18 09:54 09/03/18 07:55 100 09/03/18 07:20 99 09/03/18 07:19 99 09/03/18 07:10 Weight Admit Weight 212 lb 14.4 oz Weight 210 lb 15.718 oz Most Recent Monitor Data Heart Rate from ECG 61 NIBP 156/77 NIBP BP-Mean 103 Respiration from ECG 18 SpO2 99 I&O: 09/02/18 09/03/18 09/04/18 06:59 06:59 06:59 Intake Total 1220 780 Balance 1220 780 Result Diagrams: 09/03/18 04:38 09/03/18 04:38 Additional Labs: Microbiology 08/29/18 14:16 Urine Straight Catheter Urine Culture - Final Aerococcus urinae 08/29/18 15:52 Venous blood - Left Hand Blood Culture - Preliminary NO GROWTH AT 48 HOURS 08/29/18 15:47 Venous blood - Right Arm Blood Culture - Preliminary NO GROWTH AT 48 HOURS Radiology Reviewed by me: Yes (CT Abdo/chest/pelvis-no acute process ) Phys Exam - Physical Examination Constitutional: NAD sleepy HEENT: PERRLA, moist MMs, sclera anicteric, oral pharynx no lesions Neck: no nodes, no JVD, supple, full ROM Respiratory: no wheezing, no rales, no rhonchi, clear to auscultation bilateral Cardiovascular: RRR, no significant murmur Gastrointestinal: soft, non-tender, no distention, positive bowel sounds Musculoskeletal: no edema, pulses present Neurological: non-focal, normal sensation, moves all 4 limbs Psychiatric: normal affect, A&O x 3 Skin: no rash Dx/Plan (1) Hyponatremia Code(s): E87.1 - HYPO-OSMOLALITY AND HYPONATREMIA Status: Acute Comment: Serial BMP.Multifactorial.No SKATE HOP symptoms for now .Slow correction at no more than 8-10 meq/24 hrs.Nephrology following as well cont Free water restriction 121 today DC prozac and HCTZ (2) UTI (urinary tract infection) Status: Acute Comment: Aerococcus in urine.change Abx to Levaquin- (3) BRINA (acute kidney injury) Code(s): N17.9 - ACUTE KIDNEY FAILURE, UNSPECIFIED Status: Acute Comment: MOnitor. clinically dry.defer to Nephrology for IVF given severe Hyponatremia (4) Metabolic acidosis Code(s): E87.2 - ACIDOSIS Status: Acute Comment: on Bicitra.Improving (5) Hypokalemia Code(s): E87.6 - HYPOKALEMIA Status: Acute Comment: replace and recheck prn (6) Chronic back pain Code(s): M54.9 - DORSALGIA, UNSPECIFIED; G89.29 - OTHER CHRONIC PAIN Status: Chronic (7) HTN (hypertension) Code(s): I10 - ESSENTIAL (PRIMARY) HYPERTENSION Status: Chronic (8) Depression Code(s): F32.9 - MAJOR DEPRESSIVE DISORDER, SINGLE EPISODE, UNSPECIFIED Status : Chronic Qualifiers: Depression Type: major depressive disorder Comment: Prozac stopped due to hyponatremia - Plan continue antibiotics, PT/OT, incentive spirometry, out of bed/ambulate, DVT proph w/SCDs CT did not show any etiology for Hyponatremia &/Or abdominal pain -: check Cdiff. worsening leucocytosis. not on any steroids -: HD stable.CPAP at night but refuses to wear w daytime somnolence -: Aerococcus usually sensistive to levaquin. Discussed w ID yesterday -: Hd stable.AM labs.sodium stable and better. OK for tele bed * . Review of Systems - Review of Systems Constitutional: weakness, malaise ENT: negative: Ear Pain, Ear Discharge, Nose Pain, Nose Discharge, Nose Congestion, Mouth Pain, Mouth Swelling, Throat Pain, Throat Swelling, Other Cardiovascular: negative: chest pain, palpitations, orthopnea, paroxysmal nocturnal dyspnea, edema, light headedness, other Gastrointestinal: Nausea. negative: Vomiting, Abdominal Pain, Diarrhea, Constipation, Melena, Hematochezia, Other Genitourinary: negative: Dysuria, Frequency, Incontinence, Hematuria, Retention , Other Musculoskeletal: negative: Neck Pain, Shoulder Pain, Arm Pain, Back Pain, Hand Pain, Leg Pain, Foot Pain, Other Neurological: negative: Weakness, Numbness, Incoordination, Change in Speech, Confusion, Seizures, Other - Medications/Allergies Allergies/Adverse Reactions: Allergies Allergy/AdvReac Type Severity Reaction Status Date / Time Penicillins Allergy Rash Verified 08/29/18 20:56 Medications: Current Medications Acetaminophen (Tylenol) 650 mg PO Q4H PRN PRN Reason: Headache/Fever/Mild Pain (1-3) Hydrocodone Bitart/Acetaminophen ([place] 5/325) 1 tab PO Q4H PRN PRN Reason: Moderate Pain (4-6) Last Admin: 09/02/18 17:22 Dose: 1 tab Hydrocodone Bitart/Acetaminophen ([place] 5/325) 2 tab PO Q4H PRN PRN Reason: Severe Pain (7-10) Albuterol/Ipratropium (Duoneb) 3 ml NEB [id number] [facility] Last Admin: 09/03/18 15:57 Dose: 3 ml Aripiprazole (Abilify) 0.5 mg PO HS [facility] Last Admin: 09/02/18 20:22 Dose: 0.5 mg Atenolol (Tenormin) 50 mg PO BID [facility] Last Admin: 09/03/18 09:54 Dose: 50 mg Benzonatate (Tessalon) 100 mg PO Q6H PRN PRN Reason: Cough Bisacodyl (Dulcolax) 10 mg PO DAILYPRN PRN PRN Reason: Constipation Calcium Carbonate (Tums) 1,000 mg PO Q4H PRN PRN Reason: Heartburn or Indigestion Clonidine (Catapres) 0.1 mg PO Q4H PRN PRN Reason: SBP > 160____ Doxazosin Mesylate (Cardura) 4 mg PO BID [facility] Last Admin: 09/03/18 09:54 Dose: 4 mg Enoxaparin Sodium (Lovenox) 40 mg SC 0900 [facility] Last Admin: 09/03/18 09:52 Dose: 40 mg Famotidine (Pepcid) 20 mg SLOW IVP Q12HR [facility] Last Admin: 09/03/18 09:54 Dose: 20 mg Guaifenesin (Robitussin Sf) 200 mg PO Q4H PRN PRN Reason: Cough Hydralazine HCl (Apresoline) 10 mg SLOW IVP Q4H PRN PRN Reason: SBP > 180 and HR < 70 Levofloxacin 500 mg/ Device 100 mls @ 100 mls/hr IVPB Q24HR [facility] Last Admin: 09/03/18 15:40 Dose: 100 mls Lidocaine (Lidoderm 5% Patch) 1 patch TD 1200 [facility] Last Admin: 09/03/18 15:34 Dose: 1 patch Miscellaneous Medication (Lidocaine Patch Removal) 1 each TOP 2359 [facility] Last Admin: 09/03/18 00:02 Dose: 1 each Montelukast Sodium (Singulair) 10 mg PO DAILY [facility] Last Admin: 09/03/18 09:54 Dose: 10 mg Morphine Sulfate (Morphine) 2 mg SLOW IVP Q3H PRN PRN Reason: Moderate Pain (4-6) Last Admin: 08/30/18 01:14 Dose: 2 mg Nitroglycerin (Nitrostat) 0.4 mg SL Q5MIN PRN PRN Reason: Chest Pain Ondansetron HCl (Zofran) 4 mg IVP Q6H PRN PRN Reason: Nausea/Vomiting Last Admin: 08/31/18 11:08 Dose: 4 mg Senna/Docusate Sodium (Senokot S) 2 tab PO BID PRN PRN Reason: Constipation Last Admin: 09/01/18 12:52 Dose: 2 tab Simvastatin (Zocor) 10 mg PO DAILY [facility] Last Admin: 09/03/18 09:53 Dose: 10 mg Sodium Bicarbonate (Bicarbonate, Sodium) 650 mg PO TID [facility] Last Admin: 09/03/18 09:54 Dose: 650 mg Sodium Chloride ([place] Nasal [place] 0.65%) 0 ml EA NARE QIDPRN PRN PRN Reason: Nasal Congestion Sodium Chloride (Flush - Normal Saline) 10 ml IVF Q12HR [facility] Last Admin: 09/03/18 09:56 Dose: 10 ml Sodium Chloride (Flush - Normal Saline) 10 ml IVF PRN PRN PRN Reason: Saline Flush Tramadol HCl (Ultram) 50 mg PO Q6HR ISREAL Last Admin: 09/03/18 15:33 Dose: 50 mg
[2018-09-03] MEDS: Aripiprazole 2 MG TAB PO SCH (21:02)
[2018-09-04] MEDS: traMADol HCl 50 MG TAB PO SCH ×3 (06:11→19:18)
[2018-09-04 06:13] LABS: #Eosinphils 0.2 thou/uL (0.0-0.7); #Lymphocytes 1.4 thou/uL (1.20-3.40); #Monocytes 0.9 thou/uL (0.11-0.59); #Neutrophils 11.5 thou/uL (1.40-6.50); %Basophils 0.3 % (0.0-1.0); %Eosinophils 1.7 % (0.0-10.0); %Lymphocytes 10.1 % (21.0-51.0); %Monocytes 6.3 % (0.0-10.0); %Neutrophils 81.5 % (42.0-75.0); Hemoglobin 11.8 g/dL (12.0-16.0); Mean Corpuscular HGB CONC 34.3 g/dL (32.0-36.0); Mean Corpuscular Hemoglobin 32.4 pg (27.0-31.0); Mean Corpuscular Volume 94.5 fL (78.0-98.0); Platelet Count 219 thou/uL (130-400); RBC Distribution Width 11.9 % (11.5-14.5); Red Blood Cell (RBC) Count 3.64 mill/uL (4.20-5.40); White Blood Cell (WBC) Count 14.1 thou/uL (4.8-10.8)
[2018-09-04 06:30] LABS: ALT (SGPT) 28 U/L (8-55); AST (SGOT) 22 U/L (5-34); Albumin 3.6 g/dL (3.4-4.8); Alkaline Phosphatase 80 U/L (40-150); Anion Gap 12 mmol/L (10-20); BUN (Urea Nitrogen) 18 mg/dL (9.8-20.1); Bilirubin, Total 0.4 mg/dL (0.2-1.2); Calc. Creatinine Clearance 82 mL/min (70-130); Carbon Dioxide 26 mmol/L (23-31); Estimated GFR-MDRD 60; Globulin 2.8 g/dL (2.4-3.5); Glucose 102 mg/dL (83-110); Potassium 3.5 mmol/L (3.5-5.1); Protein, Total 6.4 g/dL (6.0-8.3)
[2018-09-04 06:44] LABS: Chloride 91 mmol/L (98-107); Sodium 125 mmol/L (136-145)
--- NOTE | 2018-09-04 08:21 | PRG ---
DATE OF SERVICE: 09/04/2018 SUBJECTIVE: A 77-year-old female with hypertension and depression, admitted due to hyponatremia, hypokalemia, acute encephalopathy, and generalized weakness. Nephrology is following the patient for BRINA, hypokalemia, and hyponatremia. Oral intake is improving and mental status also has improved. The patient reports development of frequent loose stools since yesterday. Has had about 4 loose motions since yesterday. She, however, denied nausea or vomiting, fever, chest pain, palpitations, or dizziness. OBJECTIVE: VITAL SIGNS: Temperature 97, pulse is 68, respiratory rate 15, SpO2 99% on room air, blood pressure is 121/83. GENERAL: Elderly female, in no obvious distress. Afebrile, anicteric, acyanotic. HEENT: Normocephalic, atraumatic. Pupils are equal and reacting to light. CARDIOVASCULAR: Regular rhythm and rate with normal heart sounds one and two. RESPIRATORY: Fair air entry bilaterally with prolonged expiration and few scattered transmitted sounds. No obvious crackle was appreciated. GASTROINTESTINAL: Obese, soft, questionable left lower quadrant tenderness. Bowel sound is normoactive. EXTREMITIES: Grossly normal-looking atraumatic with no edema, erythema, or cyanosis. Distal pulses are palpable. NEUROLOGIC: Conscious and alert, oriented x3 with appropriate mental status. Some memory lapse is appreciated. The patient moves all extremities. Cranial nerves 2 through 12 are intact. DIAGNOSTIC DATA: CBC showed WBC count of 14.1, hemoglobin of 11.8, platelets of 219. CMP today showed sodium 125, creatinine 3.5 chloride 91, CO2 of 26, anion gap 12, BUN 18, creatinine 0.91, glucose 102, calcium 10, total bilirubin 0.4, AST 22, ALT 28, alkaline phosphatase 80, total protein 6.4, albumin 3.6, globulin 2.8. CT scan of the chest, abdomen and pelvis with contrast showed colitis involving the descending and sigmoid colon, as well as multiple colonic diverticula and features of prior infectious or inflammatory process in the ascending colon given submucosal fat in these region. Tiny bilateral pleural effusion and passive atelectasis with additional scattered atelectasis within the lungs noted bilaterally. ASSESSMENT AND PLAN: 1. Severe and symptomatic hyponatremia with serum sodium of 105. Sodium is improving as expected. Serum sodium today is 125. This is thought to be multifactorial from SSRI, hydrochlorothiazide, as well as volume depletion from poor oral intake. Acute encephalopathy has improved. The patient still feels weak. We will continue fluid restriction and encourage liberal solute intake. 2. Hypokalemia. Repleted. Serum potassium, however, is trending downwards. We will replete. We will give a supplementation to get is above since this affects negatively the concentrating ability of the kidneys. 3. Acute kidney injury: Prerenal due to poor oral intake and fluid depletion. Resolved with IV fluid. We will monitor renal function given contrast study of September 03, 2018. 4. Metabolic acidosis: Due to gastrointestinal losses from diarrhea. Resolved with sodium bicarbonate. We will discontinue sodium bicarbonate at this time and monitor. 5. Acute encephalopathy: Multifactorial from severe hyponatremia and presumed enteritis as well as urinary tract infection. Improved. 6. Urinary tract infection: Treatment as per primary attending. 7. Possible colitis: We defer to primary attending. 8. We will recheck renal function, magnesium in the morning, and also continue to monitor intake and output, and daily weights. Job ID: [id number]
[2018-09-04] MEDS: Montelukast Sodium 10 mg Tablet PO SCH (09:31)
[2018-09-04] MEDS: Famotidine/PF 20 mg/2ml Vial SLOW IVP SCH ×2 (09:31→21:13)
[2018-09-04] MEDS: Doxazosin Mesylate 4 MG TAB PO SCH ×2 (09:31→21:13)
[2018-09-04] MEDS: Atenolol 50 MG TAB PO SCH ×2 (09:31→21:12)
[2018-09-04] MEDS: Enoxaparin Sodium 40 MG/0.4 ML SYRINGE SC SCH (09:31)
[2018-09-04] MEDS: Simvastatin 5 MG TAB PO SCH (09:31)
[2018-09-04] MEDS: Lidocaine 5% Patch TD SCH (11:52)
[2018-09-04 15:08] VITALS: BMI 40.6
--- NOTE | 2018-09-04 15:58 | PDOC.PN ---
- Subjective Encounter Start Date: 09/04/18 Encounter Start Time: 15:53 Subjective: feels weak. sleepy.did not wear cpap again last night - Objective MAR Reviewed: Yes Vital Signs & Weight: Vital Signs (12 hours) Temp Pulse Resp Pulse Ox 09/04/18 15:08 97.0 F L 09/04/18 14:36 64 14 09/04/18 11:27 63 17 100 09/04/18 10:43 97.0 F L 09/04/18 09:31 65 09/04/18 08:00 98 09/04/18 07:56 65 16 100 09/04/18 07:13 97.0 F L 09/04/18 04:00 97.3 F L Weight Admit Weight 212 lb 14.4 oz Weight 215 lb 8 oz Most Recent Monitor Data Heart Rate from ECG 71 NIBP 131/98 NIBP BP-Mean 109 Respiration from ECG 17 SpO2 98 I&O: 09/03/18 09/04/18 09/05/18 06:59 06:59 06:59 Intake Total 780 680 Output Total 382 Balance 780 298 Result Diagrams: 09/04/18 05:37 09/04/18 05:37 Additional Labs: Microbiology 09/04/18 04:00 Stool C. difficile GDH Antigen & Toxins - Final 08/29/18 15:52 Venous blood - Left Hand Blood Culture - Final NO GROWTH IN 5 DAYS 08/29/18 15:47 Venous blood - Right Arm Blood Culture - Final NO GROWTH IN 5 DAYS 08/29/18 14:16 Urine Straight Catheter Urine Culture - Final Aerococcus urinae Laboratory Tests 08/29/18 08/29/18 08/29/18 14:27 17:36 20:10 Sodium 105 L* 106 L* 107 L* 08/30/18 08/30/18 08/31/18 16:02 22:22 12:36 Sodium 112 L* 110 L* 116 L* 08/31/18 09/01/18 09/01/18 21:12 08:12 21:00 Sodium 117 L* 119 L* 118 L* 09/02/18 09/03/18 09/04/18 05:17 04:38 05:37 Sodium 121 L 121 L 125 L Phys Exam - Physical Examination Constitutional: NAD HEENT: PERRLA, moist MMs, sclera anicteric, oral pharynx no lesions Neck: no nodes, no JVD, supple, full ROM Respiratory: no wheezing, no rales, no rhonchi, clear to auscultation bilateral Cardiovascular: RRR, no significant murmur Gastrointestinal: soft, non-tender, no distention, positive bowel sounds Musculoskeletal: no edema, pulses present Neurological: non-focal, normal sensation, moves all 4 limbs Psychiatric: normal affect, A&O x 3 Skin: no rash Dx/Plan (1) Hyponatremia Code(s): E87.1 - HYPO-OSMOLALITY AND HYPONATREMIA Status: Acute Comment: Serial BMP.Multifactorial.No [employer] symptoms for now .Slow correction at no more than 8-10 meq/24 hrs.Nephrology following as well cont Free water restriction 125 today DC prozac and HCTZ (2) UTI (urinary tract infection) Status: Acute Comment: Aerococcus in urine.change Abx to Levaquin- (3) BRINA (acute kidney injury) Code(s): N17.9 - ACUTE KIDNEY FAILURE, UNSPECIFIED Status: Acute Comment: MOnitor. clinically dry.defer to Nephrology for IVF given severe Hyponatremia (4) Metabolic acidosis Code(s): E87.2 - ACIDOSIS Status: Acute Comment: on Bicitra.Improving (5) Hypokalemia Code(s): E87.6 - HYPOKALEMIA Status: Acute Comment: replace and recheck prn (6) Chronic back pain Code(s): M54.9 - DORSALGIA, UNSPECIFIED; G89.29 - OTHER CHRONIC PAIN Status: Chronic (7) HTN (hypertension) Code(s): I10 - ESSENTIAL (PRIMARY) HYPERTENSION Status: Chronic (8) Depression Code(s): F32.9 - MAJOR DEPRESSIVE DISORDER, SINGLE EPISODE, UNSPECIFIED Status : Chronic Qualifiers: Depression Type: major depressive disorder Comment: Prozac stopped due to hyponatremia - Plan plan discussed w/ family, continue antibiotics, PT/OT, respiratory therapy, incentive spirometry, out of bed/ambulate, DVT proph w/SCDs Pt somnolent in day time d/t severe sleep apnea & CPAP non compliance -: encouraged and discussed w and RN -: Rehab eval.DC when accpeted * . Review of Systems - Review of Systems Constitutional: negative: fever, chills, sweats, weakness, malaise, other ENT: negative: Ear Pain, Ear Discharge, Nose Pain, Nose Discharge, Nose Congestion, Mouth Pain, Mouth Swelling, Throat Pain, Throat Swelling, Other Respiratory: negative: Cough, Dry, Shortness of Breath, Hemoptysis, SOB with Excertion, Pleuritic Pain, Sputum, Wheezing Cardiovascular: negative: chest pain, palpitations, orthopnea, paroxysmal nocturnal dyspnea, edema, light headedness, other Gastrointestinal: negative: Nausea, Vomiting, Abdominal Pain, Diarrhea, Constipation, Melena, Hematochezia, Other Genitourinary: negative: Dysuria, Frequency, Incontinence, Hematuria, Retention , Other Musculoskeletal: negative: Neck Pain, Shoulder Pain, Arm Pain, Back Pain, Hand Pain, Leg Pain, Foot Pain, Other Neurological: negative: Weakness, Numbness, Incoordination, Change in Speech, Confusion, Seizures, Other - Medications/Allergies Allergies/Adverse Reactions: Allergies Allergy/AdvReac Type Severity Reaction Status Date / Time Penicillins Allergy Rash Verified 08/29/18 20:56 Medications: Current Medications Acetaminophen (Tylenol) 650 mg PO Q4H PRN PRN Reason: Headache/Fever/Mild Pain (1-3) Hydrocodone Bitart/Acetaminophen ([place] 5/325) 1 tab PO Q4H PRN PRN Reason: Moderate Pain (4-6) Last Admin: 09/02/18 17:22 Dose: 1 tab Hydrocodone Bitart/Acetaminophen ([place] 5/325) 2 tab PO Q4H PRN PRN Reason: Severe Pain (7-10) Albuterol/Ipratropium (Duoneb) 3 ml NEB [id number] [facility] [place] Last Admin: 09/04/18 14:36 Dose: 3 ml Aripiprazole (Abilify) 0.5 mg PO HS [facility] [place] Last Admin: 09/03/18 21:02 Dose: 0.5 mg Atenolol (Tenormin) 50 mg PO BID [facility] [place] Last Admin: 09/04/18 09:31 Dose: 50 mg Benzonatate (Tessalon) 100 mg PO Q6H PRN PRN Reason: Cough Bisacodyl (Dulcolax) 10 mg PO DAILYPRN PRN PRN Reason: Constipation Calcium Carbonate (Tums) 1,000 mg PO Q4H PRN PRN Reason: Heartburn or Indigestion Clonidine (Catapres) 0.1 mg PO Q4H PRN PRN Reason: SBP > 160____ Doxazosin Mesylate (Cardura) 4 mg PO BID [facility] [place] Last Admin: 09/04/18 09:31 Dose: 4 mg Enoxaparin Sodium (Lovenox) 40 mg SC 0900 [facility] [place] Last Admin: 09/04/18 09:31 Dose: 40 mg Famotidine (Pepcid) 20 mg SLOW IVP Q12HR [facility] [place] Last Admin: 09/04/18 09:31 Dose: 20 mg Guaifenesin (Robitussin Sf) 200 mg PO Q4H PRN PRN Reason: Cough Hydralazine HCl (Apresoline) 10 mg SLOW IVP Q4H PRN PRN Reason: SBP > 180 and HR < 70 Levofloxacin 500 mg/ Device 100 mls @ 100 mls/hr IVPB Q24HR [facility] [place] Last Admin: 09/03/18 15:40 Dose: 100 mls Lidocaine (Lidoderm 5% Patch) 1 patch TD 1200 [facility] [place] Last Admin: 09/04/18 11:52 Dose: 1 patch Miscellaneous Medication (Lidocaine Patch Removal) 1 each TOP 2359 [facility] [place] Last Admin: 09/03/18 23:56 Dose: 1 each Montelukast Sodium (Singulair) 10 mg PO DAILY [facility] [place] Last Admin: 09/04/18 09:31 Dose: 10 mg Morphine Sulfate (Morphine) 2 mg SLOW IVP Q3H PRN PRN Reason: Moderate Pain (4-6) Last Admin: 08/30/18 01:14 Dose: 2 mg Nitroglycerin (Nitrostat) 0.4 mg SL Q5MIN PRN PRN Reason: Chest Pain Ondansetron HCl (Zofran) 4 mg IVP Q6H PRN PRN Reason: Nausea/Vomiting Last Admin: 08/31/18 11:08 Dose: 4 mg Senna/Docusate Sodium (Senokot S) 2 tab PO BID PRN PRN Reason: Constipation Last Admin: 09/01/18 12:52 Dose: 2 tab Simvastatin (Zocor) 10 mg PO DAILY [facility] [place] Last Admin: 09/04/18 09:31 Dose: 10 mg Sodium Chloride ([place] 0.65%) 0 ml EA NARE QIDPRN PRN PRN Reason: Nasal Congestion Sodium Chloride (Flush - Normal Saline) 10 ml IVF Q12HR [facility] [place] Last Admin: 09/04/18 09:32 Dose: 10 ml Sodium Chloride (Flush - Normal Saline) 10 ml IVF PRN PRN PRN Reason: Saline Flush Tramadol HCl (Ultram) 50 mg PO Q6HR [facility] [place] Last Admin: 09/04/18 11:52 Dose: 50 mg
[2018-09-04] MEDS: Aripiprazole 2 MG TAB PO SCH (21:15)
[2018-09-05] MEDS: Lidocaine Patch Removal 1 EACH TOP SCH ×2 (00:03→22:58)
[2018-09-05] MEDS: traMADol HCl 50 MG TAB PO SCH ×4 (01:00→18:24)
[2018-09-05 05:03] LABS: #Eosinphils 0.3 thou/uL (0.0-0.7); #Lymphocytes 1.9 thou/uL (1.20-3.40); #Neutrophils 7.3 thou/uL (1.40-6.50); %Basophils 0.1 % (0.0-1.0); %Eosinophils 2.8 % (0.0-10.0); %Lymphocytes 18.2 % (21.0-51.0); %Monocytes 9.1 % (0.0-10.0); %Neutrophils 69.9 % (42.0-75.0); Mean Corpuscular HGB CONC 34.4 g/dL (32.0-36.0); Mean Corpuscular Hemoglobin 32.7 pg (27.0-31.0); Mean Corpuscular Volume 95.1 fL (78.0-98.0); Mean Platelet Volume 5.7 fL (7.4-10.4); Platelet Count 220 thou/uL (130-400); Red Blood Cell (RBC) Count 3.67 mill/uL (4.20-5.40); White Blood Cell (WBC) Count 10.4 thou/uL (4.8-10.8)
[2018-09-05 05:25] LABS: Anion Gap 11 mmol/L (10-20); BUN (Urea Nitrogen) 18 mg/dL (9.8-20.1); Calc. Creatinine Clearance 90 mL/min (70-130); Calcium 10.3 mg/dL (7.8-10.44); Carbon Dioxide 27 mmol/L (23-31); Chloride 94 mmol/L (98-107); Estimated GFR-MDRD 67; Glucose 105 mg/dL (83-110); Potassium 3.7 mmol/L (3.5-5.1); Sodium 128 mmol/L (136-145)
--- NOTE | 2018-09-05 08:28 | PRG ---
DATE OF SERVICE: 09/05/2018 SUBJECTIVE: The patient is seen and examined at the bedside. She is feeling better, but she is very weak. She is not able to sit up without any assistance. She is hungry. She is planing to eat her breakfast. This morning, she did not have any diarrhea since last night. OBJECTIVE: VITAL SIGNS: Blood pressure is 152/77, pulse is 60, respiratory rate is 22, and O2 saturation is 100% on room air. HEENT: Her head is atraumatic and normocephalic. Eyes, PERRLA. Sclerae are nonicteric. Conjunctivae are pinkish. Oral mucosa is moist. NECK: Supple. LUNGS: Clear. HEART: S1 and S2 normal. No S3. No S4. ABDOMEN: Soft and nontender. Bowel sounds are present. No organomegaly. EXTREMITIES: No clubbing, cyanosis, or edema. NEUROLOGICAL: She is alert and oriented x4. There is no any motor or sensory deficits. She is just weak all over her body. LABORATORY DATA: Labs showed a white count of 10.4, hemoglobin 12.0, hematocrit 34.9, and platelet count is 220,000. Sodium of 128, potassium 3.7, chloride 94, BUN 18, creatinine 0.83, and the rest of chemistry within normal limits. Stool lactoferrin positive. IMPRESSION: 1. Hyponatremia. Hydrochlorothiazide was stopped. Prozac was stopped. 2. Generalized weakness, deconditioned also secondary to hyponatremia. 3. Urinary tract infection with Enterococcus, on Levaquin. 4. Metabolic acidosis, on Bicitra. 5. Hyperkalemia, improved. 6. Chronic back pain. 7. Hypertension. 8. Diarrhea. PLAN: Plan is to watch her closely since she did not have more diarrhea since last night, although her WBCs are present in the stool. We will make sure she is on probiotic. We will await until snf facility is approved and she can be transferred when her sodium is back to normal range. Job ID: [id number]
[2018-09-05] MEDS: Atenolol 50 MG TAB PO SCH ×2 (09:00→20:27)
[2018-09-05] MEDS: Famotidine/PF 20 mg/2ml Vial SLOW IVP SCH ×2 (09:01→20:29)
[2018-09-05] MEDS: Enoxaparin Sodium 40 MG/0.4 ML SYRINGE SC SCH (09:01)
[2018-09-05] MEDS: Doxazosin Mesylate 4 MG TAB PO SCH ×2 (09:01→20:29)
[2018-09-05] MEDS: Montelukast Sodium 10 mg Tablet PO SCH (09:02)
[2018-09-05] MEDS: Simvastatin 5 MG TAB PO SCH (09:02)
[2018-09-05] MEDS: Lidocaine 5% Patch TD SCH (12:23)
--- NOTE | 2018-09-05 13:21 | PRG ---
DATE OF SERVICE: 09/05/2018 SUBJECTIVE: Ms. Garza is afebrile. OBJECTIVE: VITAL SIGNS: Heart rate 63, respiratory rate 18, oximetry is 97% on room air. LUNGS: Clear. HEART: Regular rhythm. S1, S2 are normal. ABDOMEN: Soft and nontender. EXTREMITIES: Without edema. She is quicker to respond to questions, although in my opinion, she is still mildly encephalopathic. She did not want to go to rehab. There is a bed available at rehab. LABORATORY DATA: White count 10.4, hemoglobin 12.0, platelets 220. Sodium 128, potassium 3.7, chloride 94, bicarb 27, BUN 18, creatinine 0.83. 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 She has improved slowly with fluid restriction. She is clinically stable. She is stable to go to rehab in my opinion. Her electrolytes will continue to need to be monitored. Job ID: [id number]
--- NOTE | 2018-09-05 14:50 | PRG ---
DATE OF SERVICE: 09/05/2018 SUBJECTIVE: A 77-year-old female being seen for severe hyponatremia associated with mental status change. The patient is conversational and oriented today. Denied nausea, vomiting, but still having loose stools. Denied abdominal pain, chest pain, palpitation, or headache. Discharge to acute rehab is contemplated. OBJECTIVE: VITAL SIGNS: Temperature 96.8, pulse 74, respiratory rate 13, SpO2 of 95% on room air, and blood pressure 124/76. GENERAL: Healthy-looking elderly female, in no obvious distress. Afebrile. Anicteric. Acyanotic. HEENT: Normocephalic and atraumatic. Pupils are reacting to light. Oral mucosa is moist. CARDIOVASCULAR: Regular rhythm and rate with normal heart sounds 1 and 2. RESPIRATORY: Fair air entry bilaterally with prolonged expiration. No obvious respiratory distress appreciated. GI: Abdomen is obese, soft, nontender, nondistended with normal bowel sounds. EXTREMITIES: Grossly normal looking, atraumatic with no edema or erythema. NEUROLOGIC: Conscious, alert, oriented x3 with appropriate mental status. Cranial nerves 2 through 12 are intact. The patient moves all extremities. DIAGNOSTIC DATA: CBC showed WBC count of 10.0, hemoglobin of 12.0, MCV of 95, platelets of 220. BMP showed sodium of 128, potassium 3.7, chloride 94, CO2 of 27, anion gap 11, BUN 18, creatinine 0.83, glucose 105, calcium 10.3. ASSESSMENT: 1. Severe and symptomatic hyponatremia: Improved. Sodium today is 128. On admission, sodium was 105. We will continue fluid restriction to 800 mL per 24 hours and monitor serum sodium. 2. Acute kidney injury: Due to poor oral intake and increased losses. Resolved with IV fluid therapy. The patient also is status post contrast study with no evidence of contrast-induced nephropathy. 3. Hypokalemia: Resolved. We will monitor serum potassium and replete as needed to avoid dysfunction of renal concentrating ability. 4. Metabolic acidosis: Due to gastrointestinal losses from diarrhea, resolved. The patient is off sodium bicarbonate. 5. Acute encephalopathy: Multifactorial from severe hyponatremia and presumed enteritis as well as urinary tract infection. The patient seems to be at baseline. 6. Disposition: The patient can be discharged from Nephrology point of view. She needs to continue fluid restriction 800 mL per 24 hours until re-evaluated in clinic in 2 weeks. The patient need to follow up in 2 weeks with repeat BMP. Many thanks for involving us in the care of this patient. Job ID: [id number]
[2018-09-05] MEDS: Aripiprazole 2 MG TAB PO SCH (20:27)
[2018-09-05] MEDS: HYDROcodone/Acetaminophen 5/325 mg Tablet PO PRN ×2 (22:56)
[2018-09-06] MEDS: traMADol HCl 50 MG TAB PO SCH ×3 (00:38→12:56)
[2018-09-06 04:58] LABS: #Eosinphils 0.2 thou/uL (0.0-0.7); #Lymphocytes 1.7 thou/uL (1.20-3.40); #Monocytes 0.8 thou/uL (0.11-0.59); #Neutrophils 5.6 thou/uL (1.40-6.50); %Basophils 0.2 % (0.0-1.0); %Eosinophils 2.8 % (0.0-10.0); %Lymphocytes 20.2 % (21.0-51.0); %Monocytes 9.9 % (0.0-10.0); %Neutrophils 66.8 % (42.0-75.0); Mean Corpuscular HGB CONC 33.9 g/dL (32.0-36.0); Mean Corpuscular Hemoglobin 32.8 pg (27.0-31.0); Mean Corpuscular Volume 96.8 fL (78.0-98.0); Mean Platelet Volume 5.6 fL (7.4-10.4); Platelet Count 234 thou/uL (130-400); Red Blood Cell (RBC) Count 3.67 mill/uL (4.20-5.40); White Blood Cell (WBC) Count 8.4 thou/uL (4.8-10.8)
[2018-09-06 05:16] LABS: Anion Gap 11 mmol/L (10-20); BUN (Urea Nitrogen) 16 mg/dL (9.8-20.1); Calc. Creatinine Clearance 89 mL/min (70-130); Calcium 9.9 mg/dL (7.8-10.44); Carbon Dioxide 28 mmol/L (23-31); Chloride 93 mmol/L (98-107); Estimated GFR-MDRD 64; Glucose 113 mg/dL (83-110); Potassium 3.7 mmol/L (3.5-5.1); Sodium 128 mmol/L (136-145)
[2018-09-06] MEDS: Atenolol 50 MG TAB PO SCH (08:38)
[2018-09-06] MEDS: Enoxaparin Sodium 40 MG/0.4 ML SYRINGE SC SCH (08:39)
[2018-09-06] MEDS: Montelukast Sodium 10 mg Tablet PO SCH (08:39)
[2018-09-06] MEDS: Doxazosin Mesylate 4 MG TAB PO SCH (08:39)
[2018-09-06] MEDS: Simvastatin 5 MG TAB PO SCH (08:39)
[2018-09-06] MEDS: Famotidine/PF 20 mg/2ml Vial SLOW IVP SCH (08:43)
[2018-09-06 08:44] VITALS: BP 135/63
--- NOTE | 2018-09-06 09:59 | PRG ---
DATE OF SERVICE: 09/06/2018 SUBJECTIVE: This is a 77-year-old lady being followed up for severe hyponatremia associated with acute encephalopathy. The patient reports feeling better. Nausea, vomiting, and diarrhea have all subsided. Denied chest pain, palpitations or leg swelling. Discharged to acute rehab is contemplated. OBJECTIVE: VITAL SIGNS: Temperature 98.0, pulse 71, respiratory rate 16, SpO2 100% on room air, and blood pressure 135/63. GENERAL: Obese elderly female, in no distress. Afebrile. Anicteric. Acyanotic. HEENT: Normocephalic and atraumatic. Pupils are equal and reacting to light. Oral mucosa is moist. CARDIOVASCULAR: Regular rhythm and rate with normal heart sounds 1 and 2. RESPIRATORY: Fair air entry bilateral with few transmitted sounds. No obvious crackle or rhonchi were appreciated. GI: Obese, soft, nontender, and nondistended with normal bowel sounds. EXTREMITIES: Grossly normal looking atraumatic with no edema, erythema or cyanosis. Distal pulses are palpable. NEUROLOGIC: Conscious and alert, oriented x3 with appropriate mental status. Cranial nerves 2 through 12 are intact. The patient moves all extremities. DIAGNOSTIC DATA: BMP today showed sodium of 128, potassium 3.7, chloride 93, CO2 of 28, BUN 16, creatinine 0.86, glucose 113, and calcium 9.9. CBC showed WBC count of 8.4, hemoglobin of 12, and platelet of 234. ASSESSMENT AND PLAN: 1. Severe symptomatic hyponatremia. Improved. The patient is status post treatment with hypertonic saline boluses with improvement. Mental status has also improved. The patient is currently on 800 fluid restriction per 24 hours. However, I and O showed the patient took 1500 mL of fluid yesterday. This is reflected, but no increase in serum sodium. Serum sodium yesterday was 128, the same as today. I did discuss with the patient on the need to be compliant with 800 water restriction both here in the hospital as well as at home. We will continue fluid restriction and monitor oral intake as well as electrolytes. 2. Acute kidney injury: Due to volume depletion related to GI losses and poor oral intake. Resolved with gentle IV fluids. 3. Hypokalemia: Resolved. 4. History of hypertension: Blood pressure is currently adequate and within acceptable range. The patient was on lisinopril and hydrochlorothiazide as well as Coreg on presentation, which are all held at this time except Coreg. We will continue to monitor blood pressure and restart lisinopril if needed. The patient will not be on hydrochlorothiazide anymore. 5. History of depression. The patient was on Prozac and Abilify prior to hospitalization. Prozac has been discontinued due to presumed syndrome of inappropriate ADH secretion. 6. Physical deconditioning: Multifactorial due to acute illness hyponatremia. Discharged to acute inpatient rehabilitation is contemplated. 7. Disposition: The patient can be discharged from nephrology point of view. However, strict fluid restriction to 800 mL per 24 hours should be observed. Need to monitor serum sodium closely. Job ID: [id number]
--- NOTE | 2018-09-06 10:21 | PRG ---
DATE OF SERVICE: 09/06/2018 SUBJECTIVE: Bhumika Garza is still in the hospital. Apparently, she was not transferred to rehab yesterday; however, it is pending. OBJECTIVE: VITAL SIGNS: Blood pressure 135/63 and respiratory rate is 18. She is on room air, oximetry is 100%. LUNGS: Clear. HEART: Regular rhythm. ABDOMEN: Soft. LABORATORY DATA: White count 8.4, hemoglobin 12, and platelets 234,000. Sodium 128, potassium 3.7, chloride 93, bicarb 28, BUN 16, and creatinine 0.86. 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 She will need to continue with a fluid restriction. She is kind of ready to go to rehab. See her as needed in the future. Her asthma appears to be stable at this time. Job ID: [id number]
[2018-09-06 11:29] VITALS: TEMP 96.6
[2018-09-06] MEDS: Lidocaine 5% Patch TD SCH (12:56)
--- NOTE | 2018-09-06 21:27 | DIS ---
DATE OF ADMISSION: 08/29/2018 DATE OF DISCHARGE: 09/06/2018 DISCHARGE DIAGNOSES: 1. Severe hyponatremia likely SIADH, improved. 2. Acute metabolic encephalopathy secondary to #1, improved. 3. Acute kidney injury, resolving. 4. Hypokalemia, resolved. 5. Physical deconditioning, status post fall. 6. Depression. 7. Chronic pain syndrome. 8. Hypertension, stable. 9. Urinary tract infection with Aerococcus urinae, resolved. CONSULTATIONS: 1. Dr. Stein with Nephrology Service. 2. Dr. Gómez with Pulmonology Critical Care Service. PERTINENT LAB AND X-RAY FINDINGS: Sodium ranged between 105 to 128, potassium ranged between 2.9 to 4.1. BNP ranged between 147 to 195. TSH 0.33, free T4 level 1.04, free T3 of 1.83. Serum cortisol level 14. CBC showed white blood cell count ranged between 8.4 to 18.9. Urine culture dated 08/29/2018, showed greater than 100,000 colonies of Enterococcus urinae. Blood cultures x2 dated 08/29/2018, showed no growth at 5 days. C difficile antigen and toxin dated 09/04/2018, negative. Stool lactoferrin dated 09/04/2018, elevated. CT of the brain without contrast dated 08/29/2018, showed left cerebellar hemisphere punctate focus. Chronic white matter ischemic changes and generalized atrophy noted. CT of the lumbar spine dated 08/29/2018, showed no acute process. Advanced multilevel degenerative changes noted. MRI of the lumbar spine dated 08/29/2018, showed moderate to severe degenerative changes throughout the lumbar spine. 2D transthoracic echocardiogram dated 08/30/2018, showed ejection fraction of 50% to 55%. Technically limited exam. Diastolic dysfunction noted. CT of the chest, abdomen and pelvis dated 09/03/2018, showed multiple colonic diverticula noted. Passive atelectasis noted. Cholelithiasis noted. Mild descending colon wall thickening. HOSPITAL COURSE: The patient was initially admitted, status post mechanical fall with associated back pain. The patient was also noted with encephalopathy, undergoing extensive imaging and metabolic screening after initial sodium was noted at 105. The patient was initially placed on fluid restriction and treated for suspected urinary tract infection with IV antibiotic therapy. The patient was placed on Rocephin with urine culture showing Aerococcus species. The patient continued aggressive treatment for the hyponatremia with Nephrology consultation obtained. The patient was started on hypertonic saline with serial monitoring of sodium values. The patient was noted with encephalopathy. It is likely due to the hyponatremia, which was slow to clinically improve during her hospital course. The patient ultimately developed acute kidney injury and required intravenous normal saline for correction. The patient also received potassium supplementation for mild hypokalemia, correcting appropriately. The patient ultimately was placed on fluid restriction up to 800 mL per 24 hours with serial sodium monitoring showing overall improving trend by the time of discharge. The patient was discontinued on HCTZ, as well as losartan with serial blood pressure monitoring showing stable values on atenolol as a solo agent. Due to the patient's severe deconditioning and limited mobility, the patient was deemed an appropriate candidate for ongoing inpatient rehabilitation with aggressive physical and occupational therapy. The patient has been approved for transfer to [facility] on 09/06/2018. I have examined the patient at the time of discharge and discussed followup instructions with the patient and . verbalized understanding and agreement ready for discharge on 09/06/2018. DISCHARGE MEDICATIONS: 1. Abilify 0.5 mg p.o. at bedtime. 2. Atenolol 50 mg p.o. b.i.d. 3. Doxazosin 4 mg p.o. b.i.d. 4. Fluoxetine 20 mg p.o. daily. 5. Lovastatin 20 mg p.o. daily. 6. Meloxicam 15 mg p.o. daily. 7. Singulair 10 mg p.o. daily. 8. Tramadol 50 mg p.o. q.6 hours p.r.n. 9. Ambien 6.25 mg p.o. at bedtime p.r.n. 10. [place] 5/325 mg 1 to 2 tablets p.o. q.4 to 6 hours p.r.n. pain. 11. DuoNeb 3 mL nebulized q.4 hours p.r.n. 12. Lidocaine patch 5% one patch transdermally daily. FOLLOWUP: The patient may follow up with her primary care provider, Dr. Reynaldo Mcgraw, within 10 days of discharge. The patient will follow up with Dr. Stein with Nephrology Service 2 weeks after discharge. The patient may follow up with Dr. Roldan with the [facility]. CONDITION ON DISCHARGE: Fair. ACTIVITY: Ad-collette. Rolling walker with standby/contact guard assistance. DIET: Regular. SPECIAL INSTRUCTIONS: Fluid restriction to 800 mL per 24 hours x2 weeks until evaluated by Dr. Stein. CODE STATUS: Full. DISPOSITION: Discharged to [facility], 09/06/2018. TIME SPENT: Total time preparing and coordinating discharge is 33 minutes. Job ID: [id number]
== END 2018-09-06 16:32 | DRG 643 ==
LOC: ERS 13:51 → ERHOLD 16:00 → IMCU/EMU 20:00
PROVIDERS: ADMIT Internal Medicine; ATTEND Internal Medicine
DX: E22.2 Syndrome of inappropriate secretion of antidiuretic hormone (principal); G93.41 Metabolic encephalopathy; N39.0 Urinary tract infection, site not specified; E87.2 Acidosis; J45.901 Unspecified asthma with (acute) exacerbation; N17.9 Acute kidney failure, unspecified; Z68.41 Body mass index [BMI] 40.0-44.9, adult; I10 Essential (primary) hypertension; E78.5 Hyperlipidemia, unspecified; G89.29 Other chronic pain; E87.6 Hypokalemia; F32.9 Major depressive disorder, single episode, unspecified; E66.9 Obesity, unspecified; D72.829 Elevated white blood cell count, unspecified; M47.26 Other spondylosis with radiculopathy, lumbar region; Z98.890 Other specified postprocedural states; Z79.899 Other long term (current) drug therapy; Z88.0 Allergy status to penicillin
CPT/HCPCS: 36415; 51701; 70450; 71045; 71260; 72131; 72148; 74177; 80048; 80053; 81003; 81015; 82533; 82570; 83605; 83630; 83735; 83880; 84300; 84439; 84443; 84481; 84484; 84560; 85025; 86140; 87040; 87086; 87324; 87449; 90471; 90670; 93005; 93306; 94640; 94660; 96361; 96365; 96375; G0009; J0696; J1650; J1885; J1940; J1956; J2270; J2405; J2930; J3480; J7050; J7131; J7620; Q9967; S0028

== ENCOUNTER 2018-09-23 10:34 | Emergency (ER) | payer MEDICARE, BC ==
[2018-09-23 11:09] LABS: #Eosinphils 0.1 thou/uL (0.0-0.7); #Lymphocytes 1.3 thou/uL (1.20-3.40); #Monocytes 0.4 thou/uL (0.11-0.59); #Neutrophils 3.9 thou/uL (1.40-6.50); %Basophils 0.2 % (0.0-1.0); %Eosinophils 1.9 % (0.0-10.0); %Lymphocytes 22.1 % (21.0-51.0); %Monocytes 6.5 % (0.0-10.0); %Neutrophils 69.3 % (42.0-75.0); Hemoglobin 12.8 g/dL (12.0-16.0); Mean Corpuscular HGB CONC 34.4 g/dL (32.0-36.0); Mean Corpuscular Hemoglobin 33.3 pg (27.0-31.0); Mean Corpuscular Volume 96.8 fL (78.0-98.0); Mean Platelet Volume 6.4 fL (7.4-10.4); Platelet Count 249 thou/uL (130-400); RBC Distribution Width 12.1 % (11.5-14.5); Red Blood Cell (RBC) Count 3.84 mill/uL (4.20-5.40); White Blood Cell (WBC) Count 5.7 thou/uL (4.8-10.8)
--- NOTE | 2018-09-23 11:19 | RAD ---
EXAM: Single view of the chest HISTORY: Fall with chest trauma COMPARISON: CT chest 09/03/2018 FINDINGS: Single view of the chest shows an enlarged but stable cardiomediastinal silhouette. A calc ified left hilar lymph node is seen. There is no evidence of consolidation, mass, or pleural effusion. The bones are unremarkable. IMPRESSION: No evidence of acute cardiopulmonary disease
[2018-09-23 11:27] LABS: ALT (SGPT) 19 U/L (8-55); AST (SGOT) 21 U/L (5-34); Albumin 3.6 g/dL (3.4-4.8); Alkaline Phosphatase 69 U/L (40-150); Anion Gap 14 mmol/L (10-20); BUN (Urea Nitrogen) 10 mg/dL (9.8-20.1); Bilirubin, Total 0.4 mg/dL (0.2-1.2); CK (CPK) 43 U/L (29-168); Calc. Creatinine Clearance 0 mL/min (70-130); Calcium 9.7 mg/dL (7.8-10.44); Carbon Dioxide 25 mmol/L (23-31); Chloride 99 mmol/L (98-107); Estimated GFR-MDRD 65; Globulin 2.7 g/dL (2.4-3.5); Glucose 126 mg/dL (83-110); Potassium 4.5 mmol/L (3.5-5.1); Protein, Total 6.3 g/dL (6.0-8.3); Sodium 133 mmol/L (136-145)
[2018-09-23 13:37] LABS: Bilirubin Negative (Negative); Blood, Urine Negative (Negative); Clarity CLEAR (Clear); Glucose, Urine (Dipstick) Negative (Negative); Leukocyte Trace (Negative); Nitrite Negative (Negative); Protein, Urine (Dipstick) Negative (Neg-Trace)
[2018-09-23 13:39] LABS: Bacteria/HPF Rare-Few HPF (None Seen); Hyaline Casts/LPF 0-3 HYALINE CAST LPF (0-3 Hyaline); Pathc Cast-AUWi Flag 0.81 (0-2.49); RBC/HPF 0-3 HPF (0-3); WBC/HPF 0-3 HPF (0-3)
== END 2018-09-23 14:21 | disposition home or self-care (01) ==
LOC: ERS 10:34
DX: R55 Syncope and collapse (principal); E87.1 Hypo-osmolality and hyponatremia; E78.5 Hyperlipidemia, unspecified; I10 Essential (primary) hypertension; F41.9 Anxiety disorder, unspecified; F32.9 Major depressive disorder, single episode, unspecified; Z79.899 Other long term (current) drug therapy
CPT/HCPCS: 71045; 80053; 81003; 81015; 82550; 84484; 85025; 93005; 96360; 96361

== ENCOUNTER 2020-02-02 08:00 | Outpatient (CLI) | payer MEDICARE, BC, OTHER ==
[2020-02-02 14:05] LABS: INR-International Normal Ratio 0.9; Prothrombin Time 12.2 sec (12.0-14.7)
[2020-02-02 14:22] LABS: Anion Gap 13 mmol/L (10-20); BUN (Urea Nitrogen) 24 mg/dL (9.8-20.1); Calc. Creatinine Clearance 0 mL/min (70-130); Calcium 9.5 mg/dL (7.8-10.44); Carbon Dioxide 23 mmol/L (23-31); Chloride 100 mmol/L (98-107); Estimated GFR-MDRD 63; Glucose 98 mg/dL (83-110); Potassium 5.1 mmol/L (3.5-5.1); Sodium 131 mmol/L (136-145)
[2020-02-02 15:10] LABS: #Basophils 0.1 thou/uL (0.0-0.2); #Eosinphils 0.1 thou/uL (0.0-0.7); #Lymphocytes 2.5 thou/uL (1.20-3.40); #Monocytes 0.6 thou/uL (0.11-0.59); #Neutrophils 4.2 thou/uL (1.40-6.50); %Basophils 0.9 % (0.0-1.0); %Eosinophils 1.2 % (0.0-10.0); %Lymphocytes 33.7 % (21.0-51.0); %Monocytes 8.2 % (0.0-10.0); Hemoglobin 14.1 g/dL (12.0-16.0); MDiff Complete? YES; Macrocytosis SLIGHT = 6-15 cells (100X) (0-5/hpf); Mean Corpuscular HGB CONC 33.9 g/dL (32.0-36.0); Mean Corpuscular Hemoglobin 36.3 pg (27.0-31.0); Mean Platelet Volume 7.4 fL (7.4-10.4); Platelet Count 177 thou/uL (130-400); Platelet Morphology Comment Appears Adequate; Polychromasia SLIGHT = 2-3 cells (100X) (0-2/hpf); RBC Distribution Width 11.5 % (11.5-14.5); Red Blood Cell (RBC) Count 3.89 mill/uL (4.20-5.40); White Blood Cell (WBC) Count 7.5 thou/uL (4.8-10.8)
--- NOTE | 2020-02-03 09:05 | EKG ---
Test Reason : PREOP Blood Pressure : / mmHG Vent. Rate : 061 BPM Atrial Rate : 061 BPM P-R Int : 186 ms QRS Dur : 084 ms QT Int : 404 ms P-R-T Axes : 036 -36 010 degrees QTc Int : 406 ms Normal sinus rhythm Left axis deviation Voltage criteria for left ventricular hypertrophy Possible Lateral infarct , age undetermined Abnormal ECG Confirmed by DR. Narendra CANNON ([id number]) on 02/03/2020 9:04:36 AM Referred By: RAZ Confirmed By:DR. Narendra CANNON
[2020-02-03 12:03] LABS: SARS-CoV-2 MS2 Positive; SARS-CoV-2 N Gene Negative; SARS-CoV-2 S Gene Negative; SARS-CoV-2 by NAA Not Detected (NotDetected); SARS-CoV-2 orf1ab Negative
== END 2020-02-02 08:01 | disposition home or self-care (01) ==
LOC: LABBT 08:00
PROVIDERS: ATTEND Orthopaedic Surgery
DX: Z01.818 Encounter for other preprocedural examination (principal); M19.012 Primary osteoarthritis, left shoulder; Z20.828 Contact with and (suspected) exposure to other viral communicable diseases
CPT/HCPCS: 80048; 85025; 85610; 93005; U0003; 87635; 93010

== ENCOUNTER 2020-02-02 10:30 | Inpatient (IN) | payer MEDICARE, BC, OTHER ==
[2020-02-04 10:38] VITALS: BMI 40.4
[2020-02-05] MEDS ORDERED: Fentanyl 100 MCG/2 ML VIAL ONE ×4 (06:10→11:00)
[2020-02-05] MEDS ORDERED: Midazolam HCl 2 mg/2 ml Vial ONE (06:31)
[2020-02-05] MEDS ORDERED: Sodium Chloride 0.9% 100 ML ONE (06:49)
[2020-02-05] MEDS ORDERED: Tranexamic Acid 1,000 MG/10 ML VIAL ONE (06:49)
[2020-02-05] MEDS ORDERED: Vancomycin 1.5 GRAM/300 ML BAG ONE (06:49)
[2020-02-05] MEDS ORDERED: traMADol HCl 50 MG TAB PO PRN ×3 (06:50→07:45)
[2020-02-05] MEDS ORDERED: HYDROcodone/Acetaminophen 10/325 mg Tablet PO PRN ×2 (06:50)
[2020-02-05] MEDS ORDERED: Levofloxacin 500 mg/D5W 100 ml Premix Bag ONE (06:50)
[2020-02-05] MEDS ORDERED: Aspirin 81 mg Enteric Coated Tablet PO SCH (07:00)
[2020-02-05] MEDS ORDERED: Fentanyl 100 MCG/2 ML VIAL IV PRN (07:40)
[2020-02-05] MEDS ORDERED: Ondansetron PF 4 MG/2 ML Vial IVP PRN (07:45)
[2020-02-05] MEDS ORDERED: Promethazine HCl 25 MG/ML VIAL IM PRN ×2 (07:45→09:05)
[2020-02-05] MEDS ORDERED: Ropivacaine 0.2% 550 ML 550 ML NERVE BLCK SCH (07:45)
[2020-02-05] MEDS ORDERED: Zolpidem Tartrate 5 MG TAB PO PRN (07:45)
[2020-02-05] MEDS ORDERED: Promethazine HCl 25 MG/ML VIAL SLOW IVP PRN (09:05)
[2020-02-05] MEDS ORDERED: Ondansetron HCl/PF 4 MG/2 ML Vial IVP PRN (09:05)
[2020-02-05] MEDS ORDERED: Sodium Chloride For Inhalation 0.9% 3 ML NEB ONE (10:56)
[2020-02-05] MEDS ORDERED: Sodium Chloride 0.9% 10 ML ONE (10:56)
[2020-02-05] MEDS ORDERED: Ketorolac Tromethamine 30 MG/ML VIAL IVP SCH (12:00)
[2020-02-05] MEDS ORDERED: Glycopyrrolate 0.2 MG/ML 5 ML SYRINGE ONE (12:51)
[2020-02-05] MEDS ORDERED: Ropivacaine 0.2% HCl/PF (40 MG/20 ML VIAL) ONE (12:51)
[2020-02-05] MEDS ORDERED: Dexamethasone 20 MG/5 ML VIAL ONE (12:51)
[2020-02-05] MEDS ORDERED: Lidocaine 1% PF 5 ML VIAL ONE (12:51)
[2020-02-05] MEDS ORDERED: Rocuronium Bromide 10 MG/ML (10ML VIAL) ONE (12:51)
[2020-02-05] MEDS ORDERED: EPHEDRINE 25 MG/5 ML SYRINGE ONE (12:51)
[2020-02-05] MEDS ORDERED: PROPOFOL 200 MG/20 ML VIAL ONE (12:51)
[2020-02-05] MEDS ORDERED: Ketorolac Tromethamine 30 MG/ML VIAL ONE (12:51)
[2020-02-05] MEDS ORDERED: PHENYLEPHRINE-NS 100 MCG/ML 10 ML SYRINGE ONE (12:51)
[2020-02-05] MEDS ORDERED: Ondansetron PF 4 MG/2 ML Vial ONE (12:51)
--- NOTE | 2020-02-05 14:48 | OP ---
DATE OF PROCEDURE: 02/05/2020 PROCEDURE: Reverse total shoulder arthroplasty and biceps tenodesis. PREOPERATIVE DIAGNOSIS: Rotator cuff arthropathy, left shoulder. POSTOPERATIVE DIAGNOSIS: Rotator cuff arthropathy, left shoulder. EMERGENCY ROOM REGISTERED NURSE: Marciano Quinn PA-C. IMPLANTS USED: [employer] implants, glenoid baseplate 25 mm standard, peripheral screws anterior 18, posterior 23, superior 32, inferior 20. Glenosphere 36-mm standard. Humerus Flex stem 3B tray, +0 high offset with a 6+ poly. The staff physical therapy assistant/co-surgeon was present through the entire procedure and was responsible for providing exposure, tissue retraction and any necessary limb or tissue manipulation required to obtain necessary reduction or hardware placement. The staff physical therapy assistant/co-surgeon also provided bleeding control, tissue closure, and suturing in conjunction with the primary surgeon. NARRATIVE REPORT: After appropriate consent was obtained, the patient was taken to the operating room where general anesthesia was induced. The patient was placed in a beach chair position. Left arm was prepped and draped in the usual sterile fashion. Oblique incision was made in the deltopectoral interval. Cephalic vein was identified and preserved. Dissection was carried down to the conjoint tendon which was retracted medially. The subscapularis was taken down. The biceps tendon was in poor condition. It was taken down off the superior glenoid tubercle and tenodesed to the pectoralis tendon. Excess tendon was removed. The shoulder was then easily dislocated. I opened the humerus with a T handle and then cut a 20 mm retroversion superior cut. The subscapularis had been previously tagged. I used a subscapularis to follow this down to the anterior glenoid and a Bankart retractor was placed anteriorly, and drill was placed posteriorly. I drilled a center hole in the glenoid and reamed with a 1-step reamer. Irrigation was performed. The base plate was deployed without difficulty. Screws were inserted in the usual technique with good compression and fixation. Glenosphere was deployed without difficulty and the screw was tightened. Attention was turned back to the humerus which was opened with a T handle, and after using the acetabular reamer, I then also used a metaphyseal reamer. The appropriate size stem was trialed and polyethylene was trialed until the implants were determined as above. I did drill holes through the humerus, and a cottony Dacron suture was placed around the prosthesis through bone to facilitate repair of the subscapularis. Irrigation was performed. Permanent implants were placed. Shoulder was reduced. The subscapularis was repaired back to bone using the cottony Dacron suture. Irrigation performed again. The deltopectoral interval was tacked shut with 0 Vicryl, subcutaneous tissue was closed with 2-0 Vicryl, skin was closed with rina, and sterile dressing was applied. Job ID: [id number]
[2020-02-05] MEDS: Ketorolac Tromethamine 30 MG/ML VIAL IVP SCH ×2 (15:07→21:54)
[2020-02-05] MEDS: Lactated Ringer's 1,000 ML IV SCH ×2 (15:34→23:02)
[2020-02-05] MEDS: Atenolol 50 MG TAB PO SCH ×2 (15:34→21:57)
[2020-02-05] MEDS: Montelukast Sodium 10 mg Tablet PO SCH (15:35)
[2020-02-05] MEDS: Doxazosin Mesylate 4 MG TAB PO SCH ×2 (15:35→21:57)
[2020-02-05] MEDS: Pregabalin 25 MG CAP PO SCH ×3 (15:35→21:56)
[2020-02-05] MEDS: HYDROcodone/Acetaminophen 5/325 mg Tablet PO PRN (16:56)
[2020-02-05] MEDS ORDERED: Vancomycin 1.5 GRAM/300 ML BAG 1.5 GM in Premix Bag 1 BAG IVPB SCH (19:00)
[2020-02-05] MEDS ORDERED: cloNIDine 0.1 MG TAB PO PRN (20:51)
[2020-02-05] MEDS: Loratadine 10 MG TAB PO SCH (21:57)
[2020-02-05] MEDS: Simvastatin 10 MG TAB PO SCH (21:57)
[2020-02-06] MEDS: Ketorolac Tromethamine 30 MG/ML VIAL IVP SCH ×4 (03:39→20:11)
[2020-02-06] MEDS: HYDROcodone/Acetaminophen 5/325 mg Tablet PO PRN ×3 (06:41→14:49)
[2020-02-06] MEDS ORDERED: cloNIDine 0.1 MG TAB PO PRN (07:02)
[2020-02-06] MEDS: Montelukast Sodium 10 mg Tablet PO SCH (09:03)
[2020-02-06] MEDS: Atenolol 50 MG TAB PO SCH ×2 (09:03→20:10)
[2020-02-06] MEDS: Doxazosin Mesylate 4 MG TAB PO SCH ×2 (09:03→20:10)
[2020-02-06] MEDS: Pregabalin 25 MG CAP PO SCH ×3 (10:17→21:26)
[2020-02-06] MEDS: Calcium Carbonate 500 MG ChewTAB PO PRN (10:17)
[2020-02-06] MEDS: traMADol HCl 50 MG TAB PO PRN (12:39)
[2020-02-06] MEDS: Loratadine 10 MG TAB PO SCH (20:10)
[2020-02-06] MEDS: Simvastatin 10 MG TAB PO SCH (20:10)
[2020-02-06] MEDS: Albuterol Sulfate 2.5 mg/3 ml Neb NEB PRN (20:14)
[2020-02-07] MEDS: Acetaminophen 325 MG TAB PO PRN ×2 (01:13→20:05)
[2020-02-07] MEDS: HYDROcodone/Acetaminophen 5/325 mg Tablet PO PRN ×3 (02:15→20:46)
[2020-02-07] MEDS: Ketorolac Tromethamine 30 MG/ML VIAL IVP SCH ×2 (02:16→09:06)
[2020-02-07] MEDS: Lactated Ringer's 1,000 ML IV SCH ×3 (08:25→18:22)
[2020-02-07] MEDS: Albuterol Sulfate 2.5 mg/3 ml Neb NEB PRN ×2 (08:35→16:08)
[2020-02-07] MEDS: Atenolol 50 MG TAB PO SCH ×2 (09:05→19:51)
[2020-02-07] MEDS: Montelukast Sodium 10 mg Tablet PO SCH (09:06)
--- NOTE | 2020-02-07 09:58 | PRG ---
DATE OF SERVICE: 02/06/2020 SUBJECTIVE: Bhumika is a 79-year-old female, postop day 1 from a left total shoulder arthroplasty. She is doing relatively well, but she has been incredibly sedentary since her surgery and she does admit to having some discomfort, but she has not gotten out of bed and not moved. She required moderate assist to sit and stand. OBJECTIVE: GENERAL: The patient is alert and responsive, but very somnolent. MUSCULOSKELETAL: Her block is functioning. Left arm is in a sling. VITAL SIGNS: Temperature 98.1, pulse 75, respiratory rate 18, unlabored. O2 saturations 99% on 3.5 L of nasal cannula, blood pressure 102/66. NEUROLOGIC: She is responsive and conversive and appropriate but very somnolent. IMPRESSION: A 79-year-old female postop day 1 with left total shoulder arthroplasty, but with significant somnolence and has not been able to stand and get out of bed at this point, does not meet discharge criteria. PLAN: Continue to observe for blood loss as well as pain control. Also, she will need to become far more independent before discharge is eminent. I would like to see her get out of bed, stand and go to the restroom and also walk out of the room under her own power. Job ID: [id number]
[2020-02-07] MEDS: Doxazosin Mesylate 4 MG TAB PO SCH ×2 (12:03→19:51)
[2020-02-07] MEDS: Pregabalin 25 MG CAP PO SCH ×3 (12:04→20:23)
[2020-02-07] MEDS: Loratadine 10 MG TAB PO SCH (19:51)
[2020-02-07] MEDS: Simvastatin 10 MG TAB PO SCH (20:23)
[2020-02-08] MEDS: Albuterol Sulfate 2.5 mg/3 ml Neb NEB PRN (05:19)
[2020-02-08] MEDS: Montelukast Sodium 10 mg Tablet PO SCH (08:56)
[2020-02-08] MEDS: Pregabalin 25 MG CAP PO SCH ×3 (08:56→21:43)
[2020-02-08] MEDS: Atenolol 50 MG TAB PO SCH ×2 (08:56→21:43)
[2020-02-08] MEDS: Doxazosin Mesylate 4 MG TAB PO SCH ×2 (08:57→21:43)
--- NOTE | 2020-02-08 09:59 | RAD ---
Exam: Chest one view HISTORY:Dyspnea. Comparison: 09/23/2018 FINDINGS: Cardiac silhouette:Magnification cardiac silhouette due to portable technique. Stable hyperdensity in the AP window likely representing a calcified lymph node. Aorta: Unremarkable Pulmonary vessels: Normal Costophrenic angles: Small left-sided pleural effusion is suspected. LUNGS: Diminished lung volumes, likely due to a poor inspiratory effort. Left lower lobe atelectasis. Superimposed aspiration, or pneumonia cannot be excluded. Pneumothorax: None Osseous abnormalities: Evidence of left humeral arthroplasty. IMPRESSION: 1. Diminished lung volumes, likely due to atelectasis/poor inspiratory effort. Opacification in the l eft lung base due to pleural and parenchymal changes as described above.
[2020-02-08 10:09] LABS: #Basophils 0.1 thou/uL (0.0-0.2); #Eosinphils 0.1 thou/uL (0.0-0.7); #Lymphocytes 1.3 thou/uL (1.20-3.40); #Monocytes 0.9 thou/uL (0.11-0.59); #Neutrophils 9.2 thou/uL (1.40-6.50); %Basophils 0.6 % (0.0-1.0); %Lymphocytes 10.9 % (21.0-51.0); %Monocytes 7.4 % (0.0-10.0); %Neutrophils 80.1 % (42.0-75.0); Hemoglobin 12.9 g/dL (12.0-16.0); Mean Corpuscular HGB CONC 33.5 g/dL (32.0-36.0); Mean Corpuscular Hemoglobin 35.7 pg (27.0-31.0); Mean Platelet Volume 6.3 fL (7.4-10.4); Platelet Count 169 thou/uL (130-400); Red Blood Cell (RBC) Count 3.61 mill/uL (4.20-5.40); White Blood Cell (WBC) Count 11.4 thou/uL (4.8-10.8)
--- NOTE | 2020-02-08 10:11 | PRG ---
DATE OF SERVICE: 02/08/2020 SUBJECTIVE: Bhumika is a 79-year-old female, postop day #2 from a left total shoulder arthroplasty. The patient gives me no history of congestive heart failure or primary pulmonary disease other than a history of what she describes as seasonal bronchitis. She did not look so good yesterday, was unable to stand at the bedside without desaturating. I was little worried that maybe her peripheral nerve block may have something to do with her diaphragm function and continue to observe. Overnight, she did relatively well and her vitals remained stable, but she just looks dyspneic and not well to . OBJECTIVE: VITAL SIGNS: Temperature 97.9, pulse 78, blood pressure is 137/85, respiratory rate 18, and she looks a little labored, O2 saturation is 91% on 3 L nasal cannula. In the sitting up position with the cannula displaced, the patient's sats dropped down in the 80s. Otherwise, she is alert, responsive, and appropriate with examiner, and she does not look well. She looks as though she is struggling for oxygen. She is conversive and pleasant however. Shoulder exam is normal. Incision is fine. There is no strike through. No erythema. Block is still in place. IMPRESSION: 1. Hypoxia, etiology could either be primary pulmonary or other. 2. A 79-year-old female, postop day #2, left total shoulder arthroplasty and failing to thrive and recover as expected. PLAN: 1. I have consulted with the hospitalists and discussed the case with her and she will see the patient later this morning. 2. In anticipation, I have ordered a CBC, comprehensive metabolic profile, chest x-ray, EKG, BNP, and urinalysis with micro and reflex culture as well as lactic acid. Continue to follow with the patient and observe for deterioration. Job ID: [id number]
[2020-02-08 10:32] LABS: Lactic Acid 1.1 mmol/L (0.5-2.2)
[2020-02-08 10:37] LABS: ALT (SGPT) 18 U/L (8-55); AST (SGOT) 36 U/L (5-34); Albumin 3.7 g/dL (3.4-4.8); Alkaline Phosphatase 67 U/L (40-110); Anion Gap 12 mmol/L (10-20); BUN (Urea Nitrogen) 21 mg/dL (9.8-20.1); Bilirubin, Total 0.6 mg/dL (0.2-1.2); Calc. Creatinine Clearance 98 mL/min (70-130); Calcium 9.7 mg/dL (7.8-10.44); Carbon Dioxide 23 mmol/L (23-31); Chloride 94 mmol/L (98-107); Estimated GFR-MDRD 76; Globulin 3.1 g/dL (2.4-3.5); Glucose 118 mg/dL (83-110); Potassium 4.9 mmol/L (3.5-5.1); Protein, Total 6.8 g/dL (6.0-8.3); Sodium 124 mmol/L (136-145)
[2020-02-08] MEDS ORDERED: Albuterol Sulfate 2.5 mg/3 ml Neb NEB PRN (10:45)
[2020-02-08] MEDS ORDERED: Magnesium Sulfate 3 GM in Sodium Chloride 0.9% 100 ML IVPB SCH (12:30)
[2020-02-08] MEDS ORDERED: guaiFENesin ER 600 MG TAB PO SCH (12:30)
[2020-02-08] MEDS ORDERED: Bacteriostatic Water 30 ML VIAL FS PRN (12:30)
[2020-02-08] MEDS ORDERED: methylPREDNISolone Sod Succ/PF 125 MG/2 ML VIAL IVP SCH ×2 (12:30)
--- NOTE | 2020-02-08 12:34 | CON ---
DATE OF CONSULTATION: 02/08/2020 REQUESTOR: Orthopedics, Syed Quinn PA-C PURPOSE: Respiratory failure with hypoxia. HISTORY OF PRESENT ILLNESS: This is a 79-year-old female, now status post shoulder surgery 2 days ago, who has required oxygen postoperatively. The patient evaluated and she reports feeling short of breath. She reports a history of obstructive sleep apnea that is untreated as she has been unable to tolerate the mask. She feels like the air is not really going in today, and states that it has been present since surgery. She does have history of asthma. The patient has been receiving breathing treatments here. She reports coughing afterwards and is uncertain if it is helping her breathing status. She is not normally on oxygen at home. PAST MEDICAL HISTORY: 1. Hypertension. 2. Anxiety. 3. History of hyponatremia. 4. Chronic back pain. 5. Hypertension. 6. Dyslipidemia. PAST SURGICAL HISTORY: and lumpectomy. FAMILY HISTORY: Significant for heart disease. SOCIAL HISTORY: No tobacco or alcohol. Her is present in the room. REVIEW OF SYSTEMS: Positive for discomfort associated with breathing. Negative for fevers, chills, nausea, vomiting, or abdominal pain. All remaining review of systems are reviewed and negative. PHYSICAL EXAMINATION: VITAL SIGNS: Temperature 98.1, pulse 76, respirations 18, saturation 94% on 4 L nasal cannula, and blood pressure 119/65. GENERAL: She is awake, alert, responsive. She appears tachypneic with increased work of breathing. She is not in apparent distress. LUNGS: Poor air movement. No audible wheezing, rhonchi, or rales. HEART: Normal S1 and S2. Regular rate and rhythm. No significant murmur. ABDOMEN: Soft with present bowel sounds. Nontender, nondistended. EXTREMITIES: No edema. VASCULAR: 2+ dorsalis pedis pulses. DIAGNOSTIC DATA: Chest x-ray is personally reviewed. Diminished lung volumes likely due to atelectasis, poor inspiratory effort, opacification in the left lung base due to pleural and parenchymal changes, superimposed aspiration or pneumonia cannot be excluded. Labs so far; CBC: 11.4, 12.9, 38.4, 169. Chemistry: 124, 4.9, 94, 23, 21, 0.74, 118. T-bilirubin 0.6, AST 36, ALT 18, alkaline phosphatase 67, total protein 6.8, and albumin 3.7. Lactate 1.1. BNP 91.1. IMPRESSION: 1. Acute respiratory failure with hypoxia, postoperatively in a patient with untreated sleep apnea, history of asthma as well as shoulder block for postoperative anesthesia. 2. Possible pneumonia. 3. Acute on chronic hyponatremia. 4. Status post left shoulder surgery, on postoperative day 2. 5. Elevated AST likely secondary to surgery. 6. Chronic back pain. 7. Hypertension. 8. Dyslipidemia. PLAN: 1. Transfer the patient to the ICU, Pulmonology consultation, start BiPAP, the shoulder block has already been removed. 2. Continuing nebulizer therapy, discontinue if worsening symptoms. 3. Cefepime and vancomycin ordered to cover for possible pneumonia. 4. Obtain D-dimer. Consider CT scan to evaluate for PE, if any worsening or failure to improve. 5. For the acute on chronic hyponatremia, we will discontinue the fluid order that is on the chart, obtain urine studies and fluid restrict to 1.5 L per day as well as trend her sodium levels. 6. Postoperative care per Orthopedics. 7. Continuing her beta-kar at her home dosing. Blood pressure is well controlled. 8. Continuing her statin, and her home medications for mood. 9. Pain control per Orthopedics. 10. DVT prophylaxis. The patient is not written for pharmacologic DVT prophylaxis. We will defer to Orthopedics, she does have SCDs in place. 11. GI prophylaxis not indicated. 12. Code status is full. 13. Reviewed the plan of care with the patient and her . No questions or further needs at the end of evaluation. Thank you for this consult. We will follow along. Please call with any questions. Addendum - urine studies reviewed and hyponatremia c/w SIADH (FeNa 0.93% and Uosm 151), monitor. Pt currently on bipap and precedex gtt, may need to start some IVF tomorrow if unable to wean from bipap Job ID: [id number] [facility]
[2020-02-08] MEDS: Cefepime 2 GM in Sodium Chloride 0.9% 100 ML IVPB SCH ×2 (12:42→20:24)
[2020-02-08] MEDS: Vancomycin 1.5 GRAM/300 ML BAG 1.5 GM in Premix Bag 1 BAG IVPB SCH (12:42)
[2020-02-08 14:01] LABS: Base Excess (BEa) 0.7 mEq/L (-2.0 to +3.0); CO2 Tension 44.3 mmHg (35.0-45.0); Calcium, Ionized (arterial) 1.27 mmol/L (1.12-1.30); Carboxyhemoglobin (COHb) 1.5 gm% (0.0-3.0); Hemoglobin (Hb) 12.5 g/dL (12.0-16.0); Potassium - ABG Lab 4.75 mmol/L (3.70-5.30); pH, Arterial 7.39 (7.35-7.45)
[2020-02-08 14:02] LABS: ALV-art Gradient 98.825 mmHg (0-20); Puncture Site RRA
[2020-02-08 18:10] LABS: Bacteria/HPF None Seen HPF (None Seen); Bilirubin Negative (Negative); Blood, Urine Negative (Negative); Clarity Clear (Clear); Glucose, Urine (Dipstick) Normal (Negative); Ketone, Urine Negative (Negative); Leukocyte Negative Leu/uL (Negative); Nitrite Negative (Negative); Protein, Urine (Dipstick) Negative (Neg-Trace); RBC/HPF 0-3 HPF (0-3); Specific Gravity, Urine 1.005 (1.002-1.036); Squamous Epithelial None Seen HPF (0-3); Urobilinogen Normal mg/dL (Less than 2); WBC/HPF 0-3 HPF (0-3); pH, Urine 5.5 (5.0-9.0)
[2020-02-08 18:14] LABS: Urine Culture Reflex No No
[2020-02-08 18:31] LABS: Creatinine, Urine Less than 20.00 mg/dL (47-110); Sodium, Urine 31 mmol/L (Not Available)
--- NOTE | 2020-02-08 20:26 | CON ---
DATE OF CONSULTATION: 02/08/2020 HISTORY OF PRESENT ILLNESS: Bhumika Garza is a 79-year-old female. Her reports that she has a history of asthma and fall allergies. She denies ever being hospitalized with asthma. She has recently undergone shoulder surgery. She is morbidly obese and was noted to be hypoxemic. We were consulted prior to transfer to the intensive care unit for BiPAP and nebulizer treatments. PAST MEDICAL HISTORY: Remarkable for: 1. Hypertension. 2. History of anxiety. 3. History of hyponatremia. 4. History of lipid disorder. 5. History of lumpectomy. 6. History of . FAMILY HISTORY: Negative for lung disease in early age. SOCIAL HISTORY: She is a nonsmoker and nondrinker. REVIEW OF SYSTEMS: Otherwise, negative. PHYSICAL EXAMINATION: GENERAL: She is in no distress. VITAL SIGNS: She is afebrile. Heart rate is in the 70s, respiratory rate in the 20s, oximetry is 98%, and FiO2 is at 40% now on BiPAP. HEAD AND NECK: Unremarkable. Shoulder is bandaged. LUNGS: Clear, but she does have a prolonged expiratory phase and distant breath sounds. HEART: Distant S1, S2. Regular rhythm. ABDOMEN: Soft and nontender. EXTREMITIES: Without clubbing, cyanosis, or edema. LABORATORY: White count 11.4, hemoglobin 12.9, and platelets 169. Electrolytes; sodium 124, potassium 4.9, chloride 94, bicarb 23, BUN 21, and creatinine 0.74. IMPRESSION: 1. Status post shoulder surgery. 2. Asthma, most likely secondary to retained mucus and bedrest. 3. Deconditioning and significant obesity. She is 5 feet 1 inch and 214 pounds. 4. She is being empirically treated with antimicrobial therapy, although I do not see any infiltrates on her chest x-ray. I will go ahead and order Doppler of her legs. She needs TSH and cortisol level as part of her workup for hyponatremia. 5. Fluid restriction will probably fix her hyponatremia. 6. She will get dose of steroids for bronchospasm, so cortisol level probably can be done for a few days. 7. She will receive nebulized treatments. Hopefully, we can remove the BiPAP in the morning. This is a 70 min consult with greater than 50% of the time spent on the unit with coordination of care. Job ID: [id number] [facility]
[2020-02-08] MEDS ORDERED: Haloperidol Lactate 5 MG/ML VIAL SLOW IVP SCH (21:30)
[2020-02-08] MEDS: guaiFENesin ER 600 MG TAB PO SCH (21:43)
[2020-02-08] MEDS: Simvastatin 10 MG TAB PO SCH (21:43)
[2020-02-08] MEDS: Loratadine 10 MG TAB PO SCH (21:43)
[2020-02-08] MEDS: niCARdipine 25 MG in Sodium Chloride 0.9% 250 ML 240 ML IVPB PRN (22:05)
[2020-02-09] MEDS: Vancomycin 1.5 GRAM/300 ML BAG 1.5 GM in Premix Bag 1 BAG IVPB SCH ×2 (00:55→12:01)
[2020-02-09] MEDS: Cefepime 2 GM in Sodium Chloride 0.9% 100 ML IVPB SCH ×3 (03:33→20:33)
[2020-02-09 03:47] LABS: #Lymphocytes 1.3 thou/uL (1.20-3.40); #Neutrophils 9.4 thou/uL (1.40-6.50); %Basophils 0.3 % (0.0-1.0); %Eosinophils 0.1 % (0.0-10.0); %Lymphocytes 10.8 % (21.0-51.0); %Monocytes 8.4 % (0.0-10.0); %Neutrophils 80.4 % (42.0-75.0); Hemoglobin 13.6 g/dL (12.0-16.0); Mean Corpuscular HGB CONC 33.2 g/dL (32.0-36.0); Mean Corpuscular Hemoglobin 35.9 pg (27.0-31.0); Mean Platelet Volume 7.6 fL (7.4-10.4); Platelet Count 151 thou/uL (130-400); RBC Distribution Width 11.2 % (11.5-14.5); Red Blood Cell (RBC) Count 3.77 mill/uL (4.20-5.40); White Blood Cell (WBC) Count 11.7 thou/uL (4.8-10.8)
[2020-02-09 04:14] LABS: BUN (Urea Nitrogen) 13 mg/dL (9.8-20.1); Calc. Creatinine Clearance 113 mL/min (70-130); Calcium 9.7 mg/dL (7.8-10.44); Carbon Dioxide 17 mmol/L (23-31); Chloride 101 mmol/L (98-107); Estimated GFR-MDRD 90; Glucose 140 mg/dL (83-110); Sodium 129 mmol/L (136-145)
[2020-02-09 04:20] LABS: Anion Gap 16 mmol/L (10-20)
[2020-02-09] MEDS: niCARdipine 25 MG in Sodium Chloride 0.9% 250 ML 240 ML IVPB PRN (08:47)
--- NOTE | 2020-02-09 09:02 | PRG ---
DATE OF SERVICE: 02/09/2020 SUBJECTIVE: Bhumika is a 79-year-old female, who is now postop day 3 for a left total shoulder arthroplasty. I consulted Medicine yesterday for the patient's hypoxia and inability to stand, walk, get up, and move as she had done independently prior to admission. Other than her desats and poor oxygenation requiring 3 L of nasal cannula on postop day 2, she was still admitted to the intensive care unit and placed on BiPAP, and Dr. Gómez has been consulted and has treated her with some steroids. She is resting better, but she does not like using the BiPAP. PHYSICAL EXAMINATION: GENERAL: The patient is sleeping currently. She is breathing well. Saturations are good. VITAL SIGNS: Heart rate is 68, blood pressure is 156/71, and O2 saturation is 98% on nasal cannula. NEUROLOGIC: She is responsive, awakens, and talks with the examiner. SKIN: Her incision is clean. No strikethrough. No erythema. LABORATORY DATA: Hemoglobin and hematocrit 13.6 and 40.7 this morning. She has a slightly elevated white count of 11.7. IMPRESSION: 1. A 79-year-old female, postoperative day 3 left total shoulder arthroplasty. 2. Bronchospasm secondary to asthma with desaturating oxygen. PLAN: We will continue to follow. At this point, we will see how she does over the next couple of days. Job ID: [id number]
[2020-02-09] MEDS ORDERED: Furosemide 40 MG/4 ML VIAL SLOW IVP SCH (09:15)
[2020-02-09] MEDS: Atenolol 50 MG TAB PO SCH ×2 (09:41→20:35)
[2020-02-09] MEDS: Doxazosin Mesylate 4 MG TAB PO SCH ×2 (09:42→20:35)
[2020-02-09] MEDS: Montelukast Sodium 10 mg Tablet PO SCH (09:42)
[2020-02-09] MEDS: Pregabalin 25 MG CAP PO SCH ×3 (09:42→20:36)
[2020-02-09] MEDS: guaiFENesin ER 600 MG TAB PO SCH ×2 (09:43→20:36)
[2020-02-09] MEDS: Acetaminophen 325 MG TAB PO PRN ×2 (11:58→18:14)
[2020-02-09] MEDS: Calcium Carbonate 500 MG ChewTAB PO PRN (12:25)
--- NOTE | 2020-02-09 13:00 | PRG ---
DATE OF SERVICE: 02/09/2020 SUBJECTIVE: Ms. Garza is encephalopathic last night, but appeared to do better after the Haldol. The Precedex was weaned off this morning, but she has been sleeping all morning. She was up all night. OBJECTIVE: LUNGS: Clear. Her expiratory phase has improved. HEART: Regular rhythm. ABDOMEN: Soft. LABORATORY DATA: White count 11.7, hemoglobin 13.6, and platelets 151. Sodium 129, potassium 5, chloride 101, bicarb 17, BUN 13, and creatinine 0.64. IMPRESSION AND PLAN: 1. Asthma exacerbation leading the transfer to the ICU. 2. Encephalopathy. Her volunteered today for the first time that she was encephalopathic back in September and was hospitalized at [facility] for two weeks. They wanted her to go to a f[facility] for rehab. He took her home and rehabilitated her himself with home health care. He does not want her to go to a skilled or rehab environment. Overall, she has improved. It is unclear with encephalopathic episode was back during the summer time. I suppose this could have been a COVID event, but I am sure she was screened for this. In summer time, where mosquitos can be fraught with encephalitis, but I doubt she had a viral encephalitis given her sedentary nature. We will need to get her up in a chair today and start increasing her activity every day. She will stay in the ICU for one more day. Job ID: [id number]
--- NOTE | 2020-02-09 15:47 | PDOC.HOSPP ---
- Subjective Encounter Date: 02/09/20 Encounter Time: 11:45 Subjective: Patient up in bed is refusing to wear CPAP when she sleeps. - Objective Vital Signs & Weight: Vital Signs (12 hours) Temp Pulse Resp BP Pulse Ox 02/09/20 15:06 70 18 02/09/20 12:00 96.8 F L 02/09/20 10:44 65 15 02/09/20 10:00 57 L 12 127/68 100 02/09/20 09:41 72 126/92 H 02/09/20 08:00 97.6 F 100 02/09/20 07:32 72 18 02/09/20 04:00 97.4 F L Weight Weight 214 lb Most Recent Monitor Data Heart Rate from ECG 72 NIBP 124/57 NIBP BP-Mean 79 Respiration from ECG 15 SpO2 100 I&O: 02/08/20 02/09/20 02/10/20 06:59 06:59 06:59 Intake Total 1550 1758 425 Output Total 500 3000 400 Balance 1050 -1242 25 Result Diagrams: 02/09/20 03:10 02/09/20 03:10 Hospitalist ROS - Review of Systems Respiratory: denies: cough, dry, shortness of breath, hemoptysis, SOB with excertion, pleuritic pain, sputum, wheezing, other Cardiovascular: denies: chest pain, palpitations, orthopnea, paroxysmal noc. dyspnea, edema, light headedness, other Gastrointestinal: denies: nausea, vomiting, abdominal pain, diarrhea, constipation, melena, hematochezia, other Musculoskeletal: reports: shoulder pain - Medication Medications: Active Medications Generic Name Dose Route Start Last Admin Trade Name Freq PRN Reason Stop Dose Admin Acetaminophen 650 mg 02/05/20 06:52 02/09/20 11:58 Acetaminophen 325 Mg Tab PO 650 mg TID PRN Administration Pain Hydrocodone Bitart/Acetaminophen 1 tab 02/05/20 07:45 02/07/20 20:46 Hydrocodone/Acetaminophen 5/325 Mg Tablet PO 1 tab Q4H PRN Administration Mild Pain (1-3) Hydrocodone Bitart/Acetaminophen 2 tab 02/05/20 07:45 02/07/20 06:44 Hydrocodone/Acetaminophen 5/325 Mg Tablet PO 2 tab Q4H PRN Administration For Moderate Pain 4-6 Albuterol/Ipratropium 3 ml 02/08/20 14:30 02/09/20 15:06 Ipratropium/Albuterol Sulfate 3 Ml Neb NEB 3 ml [id number] ISREAL Administration Atenolol 50 mg 02/05/20 09:00 02/09/20 09:41 Atenolol 50 Mg Tab PO 50 mg BID ISREAL Administration Calcium Carbonate 500 mg 02/06/20 10:06 02/09/20 12:25 Calcium Carbonate 500 Mg Chewtab PO 500 mg PRN PRN Administration Heartburn or Indigestion Doxazosin Mesylate 4 mg 02/05/20 09:00 02/09/20 09:42 Doxazosin Mesylate 4 Mg Tab PO 4 mg BID ISREAL Administration Guaifenesin 600 mg 02/08/20 21:00 02/09/20 09:43 Guaifenesin Er 600 Mg Tab PO 600 mg Q12HR ISREAL Administration Cefepime HCl 2 gm/ Sodium 100 mls @ 200 mls/hr 02/08/20 11:00 02/09/20 10:58 Chloride IVPB 100 mls Q8H ISREAL Administration Dexmedetomidine HCl 400 mcg/ 100 mls @ 0 mls/hr 02/08/20 12:15 02/09/20 08:47 Sodium Chloride IVPB 100 mls INF ISREAL Administration Protocol Titrate Nicardipine HCl 25 mg/ Sodium 250 mls @ 0 mls/hr 02/08/20 21:31 02/09/20 08:47 Chloride IVPB 250 mls INF PRN Administration TO KEEP SBP < 180 Protocol Titrate Loratadine 10 mg 02/05/20 21:00 02/08/20 21:43 Loratadine 10 Mg Tab PO Not Given HS [facility] Montelukast Sodium 10 mg 02/05/20 09:00 02/09/20 09:42 Montelukast Sodium 10 Mg Tablet PO 10 mg DAILY ISREAL Administration Pregabalin 25 mg 02/05/20 09:00 02/09/20 14:15 Pregabalin 25 Mg Cap PO 25 mg TID ISREAL Administration Promethazine HCl 12.5 mg 02/05/20 07:45 02/06/20 03:40 Promethazine Hcl 25 Mg/Ml Vial IM 12.5 mg Q4H PRN Administration Nausea Quetiapine Fumarate 25 mg 02/05/20 09:00 10/19/20 09:43 Quetiapine Fumarate 25 Mg Tab PO 25 mg BID ISREAL Administration Simvastatin 10 mg 02/05/20 21:00 02/08/20 21:43 Simvastatin 10 Mg Tab PO Not Given QPM ISREAL Tramadol HCl 50 mg 02/05/20 07:45 02/07/20 17:49 Tramadol Hcl 50 Mg Tab PO 50 mg Q6H PRN Administration Mild Pain (1-3) Tramadol HCl 100 mg 02/05/20 07:45 02/06/20 12:39 Tramadol Hcl 50 Mg Tab PO 100 mg Q6H PRN Administration Moderate Pain 4-6 - Exam Neck: negative: supple, symmetric, no JVD, no thyromegaly, no lymphadenopathy, no carotid bruit, JVD Heart: negative: RRR, no murmur, no gallops, no rubs, normal peripheral pulses, irregular, diminshed peripheral pulses, murmur present, II/IV, III/IV Respiratory: negative: CTAB, no wheezes, no rales, no ronchi, normal chest expansion, no tachypnea, normal percussion, rales, rhonchi, tachypneic, wheezes Gastrointestinal: negative: soft, non-tender, non-distended, normal bowel sounds, no palpable masses, no hepatomegaly, no splenomegaly, no bruit, no gua rding, no rigidity, tender to palpation, distended, diminished bowl sounds, voluntary guarding Hosp A/P (1) Acute respiratory failure with hypoxia Code(s): J96.01 - ACUTE RESPIRATORY FAILURE WITH HYPOXIA Status: Acute (2) Sleep apnea Code(s): G47.30 - SLEEP APNEA, UNSPECIFIED Status: Acute (3) Obesity Code(s): E66.9 - OBESITY, UNSPECIFIED Status: Acute (4) HTN (hypertension) Code(s): I10 - ESSENTIAL (PRIMARY) HYPERTENSION Status: Chronic (5) Acute metabolic encephalopathy Code(s): G93.41 - METABOLIC ENCEPHALOPATHY Status: Acute - Plan Patient currently doing well. Pulmonology has been consulted. Patient given 1 dose of Lasix. She has been encouraged to use a CPAP at night. She is awake and oriented x2. Patient encouraged to do incentive spirometer. Patient on DVT prophylaxis.
[2020-02-09] MEDS: Enoxaparin Sodium 40 MG/0.4 ML SYRINGE SC SCH (20:36)
[2020-02-09] MEDS: Loratadine 10 MG TAB PO SCH (20:36)
[2020-02-09] MEDS: Simvastatin 10 MG TAB PO SCH (20:37)
--- NOTE | 2020-02-09 22:32 | ULT ---
BILATERAL LOWER EXTREMITY VENOUS DOPPLER EVALUATION PROVIDED CLINICAL HISTORY: Bilateral lower extremity pain TECHNIQUE: Grayscale, color doppler and spectral doppler images were obtained of the common femoral , femoral, profunda femoral, popliteal and posterior tibial veins of both lower extremities. FINDINGS: There is normal compression, flow and augmentation seen with the deep venous structures within both l ower extremities. IMPRESSION: No sonographic evidence for lower extremity deep venous thrombosis.
[2020-02-09] MEDS: HYDROcodone/Acetaminophen 5/325 mg Tablet PO PRN (23:06)
[2020-02-10] MEDS: Cefepime 2 GM in Sodium Chloride 0.9% 100 ML IVPB SCH ×3 (02:28→19:29)
[2020-02-10] MEDS ORDERED: Haloperidol Lactate 5 MG/ML VIAL IM SCH (03:30)
[2020-02-10] MEDS: Pregabalin 25 MG CAP PO SCH ×3 (10:42→20:26)
[2020-02-10] MEDS: Doxazosin Mesylate 4 MG TAB PO SCH ×2 (10:42→20:25)
[2020-02-10] MEDS: Atenolol 50 MG TAB PO SCH ×2 (10:43→20:23)
[2020-02-10] MEDS: guaiFENesin ER 600 MG TAB PO SCH ×2 (10:43→20:26)
[2020-02-10] MEDS: Montelukast Sodium 10 mg Tablet PO SCH (10:43)
[2020-02-10] MEDS: traMADol HCl 50 MG TAB PO PRN ×2 (13:30→23:06)
--- NOTE | 2020-02-10 16:11 | PDOC.HOSPP ---
- Subjective Encounter Date: 02/10/20 Encounter Time: 16:00 Subjective: Patient up in bed complains of pain to her lower back. - Objective Vital Signs & Weight: Vital Signs (12 hours) Temp Pulse Pulse Pulse Resp BP BP 02/10/20 14:15 87 20 02/10/20 13:00 98.0 F 86 20 02/10/20 10:43 78 158/98 H 02/10/20 10:37 77 25 H 02/10/20 10:18 118 H 117 H 161/97 H 02/10/20 08:00 02/10/20 07:27 74 20 BP BP Pulse Ox 02/10/20 14:15 95 02/10/20 13:00 149/83 H 96 02/10/20 10:43 02/10/20 10:37 100 02/10/20 10:18 158/97 H 02/10/20 08:00 97 02/10/20 07:27 98 Weight Weight 221 lb 12.56 oz Most Recent Monitor Data Heart Rate from ECG 88 NIBP 145/91 NIBP BP-Mean 109 Respiration from ECG 20 SpO2 97 I&O: 02/09/20 02/10/20 02/11/20 06:59 06:59 06:59 Intake Total 1758 2333 Output Total 3000 1550 100 Balance -1242 783 -100 Result Diagrams: 02/09/20 03:10 02/09/20 03:10 Hospitalist ROS - Review of Systems Cardiovascular: denies: chest pain, palpitations, orthopnea, paroxysmal noc. dyspnea, edema, light headedness, other Gastrointestinal: denies: nausea, vomiting, abdominal pain, diarrhea, constipation, melena, hematochezia, other Genitourinary: denies: dysuria, frequency, incontinence, hematuria, retention, other Musculoskeletal: reports: back pain - Medication Medications: Active Medications Generic Name Dose Route Start Last Admin Trade Name Freq PRN Reason Stop Dose Admin Acetaminophen 650 mg 02/05/20 06:52 02/09/20 18:14 Acetaminophen 325 Mg Tab PO 650 mg TID PRN Administration Pain Hydrocodone Bitart/Acetaminophen 1 tab 02/05/20 07:45 02/09/20 23:06 Hydrocodone/Acetaminophen 5/325 Mg Tablet PO 1 tab Q4H PRN Administration Mild Pain (1-3) Hydrocodone Bitart/Acetaminophen 2 tab 02/05/20 07:45 02/07/20 06:44 Hydrocodone/Acetaminophen 5/325 Mg Tablet PO 2 tab Q4H PRN Administration For Moderate Pain 4-6 Albuterol/Ipratropium 3 ml 02/08/20 14:30 02/10/20 14:15 Ipratropium/Albuterol Sulfate 3 Ml Neb NEB 3 ml [id number] ISREAL Administration Atenolol 50 mg 02/10/20 09:00 02/10/20 10:43 Atenolol 50 Mg Tab PO 50 mg BID ISREAL Administration Calcium Carbonate 500 mg 02/06/20 10:06 02/09/20 12:25 Calcium Carbonate 500 Mg Chewtab PO 500 mg PRN PRN Administration Heartburn or Indigestion Doxazosin Mesylate 4 mg 02/05/20 09:00 02/10/20 10:42 Doxazosin Mesylate 4 Mg Tab PO 4 mg BID ISREAL Administration Enoxaparin Sodium 40 mg 02/09/20 21:00 02/09/20 20:36 Enoxaparin Sodium 40 Mg/0.4 Ml Syringe SC 40 mg 2100 ISREAL Administration Fentanyl 50 mcg 02/05/20 07:40 02/10/20 05:46 Fentanyl 100 Mcg/2 Ml Vial IV 50 mcg Q1H PRN Administration BREAKTHROUGH PAIN Guaifenesin 600 mg 02/08/20 21:00 02/10/20 10:43 Guaifenesin Er 600 Mg Tab PO 600 mg Q12HR ISREAL Administration Cefepime HCl 2 gm/ Sodium 100 mls @ 200 mls/hr 02/08/20 11:00 02/10/20 12:21 Chloride IVPB 100 mls Q8H ISREAL Administration Dexmedetomidine HCl 400 mcg/ 100 mls @ 0 mls/hr 02/08/20 12:15 02/10/20 05:47 Sodium Chloride IVPB 100 mls INF ISREAL Administration Protocol Titrate Nicardipine HCl 25 mg/ Sodium 250 mls @ 0 mls/hr 02/08/20 21:31 02/09/20 08:47 Chloride IVPB 250 mls INF PRN Administration TO KEEP SBP < 180 Protocol Titrate Loratadine 10 mg 02/05/20 21:00 02/09/20 20:36 Loratadine 10 Mg Tab PO 10 mg HS ISREAL Administration Montelukast Sodium 10 mg 02/05/20 09:00 02/10/20 10:43 Montelukast Sodium 10 Mg Tablet PO 10 mg DAILY ISREAL Administration Pregabalin 25 mg 02/05/20 09:00 02/10/20 10:42 Pregabalin 25 Mg Cap PO 25 mg TID ISREAL Administration Promethazine HCl 12.5 mg 02/05/20 07:45 02/06/20 03:40 Promethazine Hcl 25 Mg/Ml Vial IM 12.5 mg Q4H PRN Administration Nausea Quetiapine Fumarate 25 mg 02/05/20 09:00 02/10/20 10:42 Quetiapine Fumarate 25 Mg Tab PO 25 mg BID ISREAL Administration Simvastatin 10 mg 02/05/20 21:00 02/09/20 20:37 Simvastatin 10 Mg Tab PO 10 mg QPM ISREAL Administration Tramadol HCl 50 mg 02/05/20 07:45 02/07/20 17:49 Tramadol Hcl 50 Mg Tab PO 50 mg Q6H PRN Administration Mild Pain (1-3) Tramadol HCl 100 mg 02/05/20 07:45 02/10/20 13:30 Tramadol Hcl 50 Mg Tab PO 100 mg Q6H PRN Administration Moderate Pain 4-6 - Exam Heart: negative: RRR, no murmur, no gallops, no rubs, normal peripheral pulses, irregular, diminshed peripheral pulses, murmur present, II/IV, III/IV Respiratory: negative: CTAB, no wheezes, no rales, no ronchi, normal chest expansion, no tachypnea, normal percussion, rales, rhonchi, tachypneic, wheezes Gastrointestinal: negative: soft, non-tender, non-distended, normal bowel sounds, no palpable masses, no hepatomegaly, no splenomegaly, no bruit, no guarding, no rigidity, tender to palpation, distended, diminished bowl sounds, voluntary guarding Extremities: 1+ LE edema Hosp A/P (1) Acute respiratory failure with hypoxia Code(s): J96.01 - ACUTE RESPIRATORY FAILURE WITH HYPOXIA Status: Acute (2) Sleep apnea Code(s): G47.30 - SLEEP APNEA, UNSPECIFIED Status: Acute (3) Obesity Code(s): E66.9 - OBESITY, UNSPECIFIED Status: Acute (4) HTN (hypertension) Code(s): I10 - ESSENTIAL (PRIMARY) HYPERTENSION Status: Chronic (5) Acute metabolic encephalopathy Code(s): G93.41 - METABOLIC ENCEPHALOPATHY Status: Acute - Plan Patient currently doing well. Pulmonology has been consulted. Patient given 1 dose of Lasix. She has been encouraged to use a CPAP at night. She is awake and oriented x2. Patient encouraged to do incentive spirometer. Patient on DVT prophylaxis. 02/09 patient currently off oxygen doing well. She is on the medical floor. We will continue to monitor. Patient encouraged to do incentive spirometer. We will put holding parameters for blood pressure medications. Will check labs in a.m.
--- NOTE | 2020-02-10 19:58 | PRG ---
DATE OF SERVICE: 02/10/2020 SUBJECTIVE: Bhumika Garza remains stable. She is stable to move out of the Critical Care Unit in my opinion. She apparently has been giving the physical therapist and the nurses pushback about getting out of bed and exercising. OBJECTIVE: VITAL SIGNS: She is afebrile, heart rate is 86, respiratory rate is 20, oximetry is 96 on room air, blood pressure 130/78. LUNGS: Clear. HEART: Regular rhythm. ABDOMEN: Soft. IMPRESSION: 1. Asthma exacerbation, now resolved. 2. Atelectasis secondary to bedrest. 3. Status post shoulder surgery. 4. Severe obesity and deconditioning. In my opinion, the fact that her waits on her continuously will slow her recovery. She had him taking up water to give her sip of water yesterday morning when her right arm worked fine and the water was within arm's reach at the bedside. I have explained to him that he has to push her hard to get into rehab or she will not survive this illness. She is being transferred out of the Critical Care Unit. She can switch to p.o. steroids and continue nebulizer treatments. We will see her as needed. Job ID: [id number]
[2020-02-10] MEDS: Enoxaparin Sodium 40 MG/0.4 ML SYRINGE SC SCH (20:25)
[2020-02-10] MEDS: Loratadine 10 MG TAB PO SCH (20:26)
[2020-02-10] MEDS: Simvastatin 10 MG TAB PO SCH (20:27)
[2020-02-10] MEDS: Calcium Carbonate 500 MG ChewTAB PO PRN (22:39)
[2020-02-11 05:24] LABS: #Eosinphils 0.1 thou/uL (0.0-0.7); #Lymphocytes 1.9 thou/uL (1.20-3.40); #Monocytes 1.2 thou/uL (0.11-0.59); #Neutrophils 7.2 thou/uL (1.40-6.50); %Basophils 0.4 % (0.0-1.0); %Eosinophils 1.2 % (0.0-10.0); %Lymphocytes 18.4 % (21.0-51.0); Hemoglobin 12.2 g/dL (12.0-16.0); Mean Corpuscular HGB CONC 33.3 g/dL (32.0-36.0); Mean Corpuscular Hemoglobin 35.6 pg (27.0-31.0); Platelet Count 220 thou/uL (130-400); RBC Distribution Width 11.4 % (11.5-14.5); Red Blood Cell (RBC) Count 3.42 mill/uL (4.20-5.40); White Blood Cell (WBC) Count 10.5 thou/uL (4.8-10.8)
[2020-02-11 05:48] LABS: Anion Gap 12 mmol/L (10-20); BUN (Urea Nitrogen) 20 mg/dL (9.8-20.1); Calc. Creatinine Clearance 108 mL/min (70-130); Calcium 10.3 mg/dL (7.8-10.44); Carbon Dioxide 25 mmol/L (23-31); Chloride 99 mmol/L (98-107); Estimated GFR-MDRD 82; Glucose 103 mg/dL (83-110); Sodium 132 mmol/L (136-145)
[2020-02-11] MEDS: predniSONE 20 MG TAB PO SCH (08:14)
[2020-02-11] MEDS: guaiFENesin ER 600 MG TAB PO SCH ×2 (08:15→20:36)
[2020-02-11] MEDS: Montelukast Sodium 10 mg Tablet PO SCH (08:15)
[2020-02-11] MEDS: Pregabalin 25 MG CAP PO SCH ×3 (09:52→21:47)
[2020-02-11] MEDS: Atenolol 50 MG TAB PO SCH ×2 (10:41→20:35)
[2020-02-11] MEDS: Doxazosin Mesylate 4 MG TAB PO SCH ×2 (10:41→20:35)
--- NOTE | 2020-02-11 14:32 | PDOC.HOSPP ---
- Subjective Encounter Date: 02/11/20 Encounter Time: 10:30 Subjective: pt up in bed no complains - Objective Vital Signs & Weight: Vital Signs (12 hours) Temp Pulse Resp BP BP Pulse Ox 02/11/20 13:55 67 18 100 02/11/20 11:55 97.9 F 74 12 158/102 H 97 02/11/20 10:55 69 20 100 02/11/20 10:41 74 150/91 H 02/11/20 08:18 98 02/11/20 07:43 98 F 74 12 168/94 H 98 02/11/20 05:00 98 F 79 19 146/68 H 95 Weight Weight 226 lb 10.163 oz Most Recent Monitor Data Heart Rate from ECG 88 NIBP 145/91 NIBP BP-Mean 109 Respiration from ECG 20 SpO2 97 I&O: 02/10/20 02/11/20 02/12/20 06:59 06:59 06:59 Intake Total 2333 1130 Output Total 1550 400 Balance 783 730 Result Diagrams: 02/11/20 05:11 02/11/20 05:11 Hospitalist ROS - Review of Systems Respiratory: denies: cough, dry, shortness of breath, hemoptysis, SOB with excertion, pleuritic pain, sputum, wheezing, other Cardiovascular: denies: chest pain, palpitations, orthopnea, paroxysmal noc. dyspnea, edema, light headedness, other Gastrointestinal: denies: nausea, vomiting, abdominal pain, diarrhea, co nstipation, melena, hematochezia, other - Medication Medications: Active Medications Generic Name Dose Route Start Last Admin Trade Name Freq PRN Reason Stop Dose Admin Acetaminophen 650 mg 02/05/20 06:52 02/09/20 18:14 Acetaminophen 325 Mg Tab PO 650 mg TID PRN Administration Pain Hydrocodone Bitart/Acetaminophen 1 tab 02/05/20 07:45 02/09/20 23:06 Hydrocodone/Acetaminophen 5/325 Mg Tablet PO 1 tab Q4H PRN Administration Mild Pain (1-3) Hydrocodone Bitart/Acetaminophen 2 tab 02/05/20 07:45 02/07/20 06:44 Hydrocodone/Acetaminophen 5/325 Mg Tablet PO 2 tab Q4H PRN Administration For Moderate Pain 4-6 Albuterol/Ipratropium 3 ml 02/08/20 14:30 02/11/20 13:55 Ipratropium/Albuterol Sulfate 3 Ml Neb NEB 3 ml [id number] ISREAL Administration Atenolol 50 mg 02/10/20 09:00 02/11/20 10:41 Atenolol 50 Mg Tab PO 50 mg BID ISREAL Administration Calcium Carbonate 500 mg 02/06/20 10:06 02/10/20 22:39 Calcium Carbonate 500 Mg Chewtab PO 500 mg PRN PRN Administration Heartburn or Indigestion Doxazosin Mesylate 4 mg 02/05/20 09:00 02/11/20 10:41 Doxazosin Mesylate 4 Mg Tab PO 4 mg BID ISREAL Administration Enoxaparin Sodium 40 mg 02/09/20 21:00 02/10/20 20:25 Enoxaparin Sodium 40 Mg/0.4 Ml Syringe SC 40 mg 2100 ISREAL Administration Fentanyl 50 mcg 02/05/20 07:40 02/10/20 05:46 Fentanyl 100 Mcg/2 Ml Vial IV 50 mcg Q1H PRN Administration BREAKTHROUGH PAIN Guaifenesin 600 mg 02/08/20 21:00 02/11/20 08:15 Guaifenesin Er 600 Mg Tab PO 600 mg Q12HR ISREAL Administration Loratadine 10 mg 02/05/20 21:00 02/10/20 20:26 Loratadine 10 Mg Tab PO 10 mg HS ISREAL Administration Montelukast Sodium 10 mg 02/05/20 09:00 02/11/20 08:15 Montelukast Sodium 10 Mg Tablet PO 10 mg DAILY ISREAL Administration Prednisone 10 mg 02/11/20 08:00 02/11/20 08:14 Prednisone 20 Mg Tab PO 10 mg QAM-WM ISREAL Administration Pregabalin 25 mg 02/05/20 09:00 02/11/20 09:52 Pregabalin 25 Mg Cap PO Not Given TID ISREAL Promethazine HCl 12.5 mg 02/05/20 07:45 02/06/20 03:40 Promethazine Hcl 25 Mg/Ml Vial IM 12.5 mg Q4H PRN Administration Nausea Quetiapine Fumarate 25 mg 02/05/20 09:00 02/11/20 08:15 Quetiapine Fumarate 25 Mg Tab PO 25 mg BID ISREAL Administration Simvastatin 10 mg 02/05/20 21:00 02/10/20 20:27 Simvastatin 10 Mg Tab PO 10 mg QPM ISREAL Administration Tramadol HCl 50 mg 02/05/20 07:45 02/07/20 17:49 Tramadol Hcl 50 Mg Tab PO 50 mg Q6H PRN Administration Mild Pain (1-3) Tramadol HCl 100 mg 02/05/20 07:45 02/10/20 23:06 Tramadol Hcl 50 Mg Tab PO 100 mg Q6H PRN Administration Moderate Pain 4-6 - Exam Neck: negative: supple, symmetric, no JVD, no thyromegaly, no lymphadenopathy, no carotid bruit, JVD Heart: negative: RRR, no murmur, no gallops, no rubs, normal peripheral pulses, irregular, diminshed peripheral pulses, murmur present, II/IV, III/IV Respiratory: negative: CTAB, no wheezes, no rales, no ronchi, normal chest expansion, no tachypnea, normal percussion, rales, rhonchi, tachypneic, wheezes Gastrointestinal: negative: soft, non-tender, non-distended, normal bowel sounds, no palpable masses, no hepatomegaly, no splenomegaly, no bruit, no guarding, no rigidity, tender to palpation, distended, diminished bowl sounds, voluntary guarding Hosp A/P (1) Acute respiratory failure with hypoxia Code(s): J96.01 - ACUTE RESPIRATORY FAILURE WITH HYPOXIA Status: Acute (2) Sleep apnea Code(s): G47.30 - SLEEP APNEA, UNSPECIFIED Status: Acute (3) Obesity Code(s): E66.9 - OBESITY, UNSPECIFIED Status: Acute (4) HTN (hypertension) Code(s): I10 - ESSENTIAL (PRIMARY) HYPERTENSION Status: Chronic (5) Acute metabolic encephalopathy Code(s): G93.41 - METABOLIC ENCEPHALOPATHY Status: Acute - Plan Patient currently doing well. Pulmonology has been consulted. Patient given 1 dose of Lasix. She has been encouraged to use a CPAP at night. She is awake and oriented x2. Patient encouraged to do incentive spirometer. Patient on DVT prophylaxis. 02/09 patient currently off oxygen doing well. She is on the medical floor. We will continue to monitor. Patient encouraged to do incentive spirometer. We will put holding parameters for blood pressure medications. Will check labs in a.m. 02/10 pt encouraged to get up and ambulate. medically she is doing well. she is on dvt ppx. vitals stable. pt on steroid taper per pulm.
[2020-02-11] MEDS: Enoxaparin Sodium 40 MG/0.4 ML SYRINGE SC SCH (20:35)
[2020-02-11] MEDS: Loratadine 10 MG TAB PO SCH (20:36)
[2020-02-11] MEDS: Simvastatin 10 MG TAB PO SCH (20:36)
[2020-02-11] MEDS: Acetaminophen 325 MG TAB PO PRN (20:37)
[2020-02-11] MEDS: Lidocaine 5% Patch TD SCH (23:23)
[2020-02-12] MEDS: Acetaminophen 325 MG TAB PO PRN ×3 (04:14→20:02)
[2020-02-12] MEDS: predniSONE 20 MG TAB PO SCH (08:29)
[2020-02-12] MEDS: Atenolol 50 MG TAB PO SCH ×2 (08:30→19:52)
[2020-02-12] MEDS: guaiFENesin ER 600 MG TAB PO SCH ×2 (08:30→19:51)
[2020-02-12] MEDS: Doxazosin Mesylate 4 MG TAB PO SCH ×2 (08:30→19:54)
[2020-02-12] MEDS: Montelukast Sodium 10 mg Tablet PO SCH (08:30)
[2020-02-12] MEDS ORDERED: Lidocaine 5% Patch TD SCH (09:00)
[2020-02-12] MEDS: Pregabalin 25 MG CAP PO SCH ×3 (09:49→19:51)
--- NOTE | 2020-02-12 11:00 | PRG ---
DATE OF SERVICE: 02/12/2020 SUBJECTIVE: Bhumika is a 79-year-old female, who is now postop day 6 from a left total shoulder arthroplasty. She was transferred from intensive care yesterday and has been on the floor for over 24 hours and is doing relatively well. She ambulated 10 feet yesterday and I believe she has ambulated distances greater than today. She has been compliant with therapy. I had a long discussion with the patient's regarding home care and the patient both declined a skilled stay or an inpatient rehabilitation recommendation. This was my formal recommendation as well as Physical Therapy and I believe Dr. Gómez, but they still would decline an inpatient bed. Therefore, a home discharge seems to be our plan of action. OBJECTIVE: VITAL SIGNS: Temperature 98.3, pulse 73, respiratory rate 16, O2 saturation 96% on room air, blood pressure 145/88. GENERAL: She is alert, appropriate, responsive with examiner. She seems a little distant, but responds appropriate with examiner. She is not as pleasant as she was in days prior to her decline to talk and seems a little dazed, but not confused. She is oriented. She stands and ambulates with therapy. EXTREMITIES: Her incision is clean. There is no strike through. No erythema. NEUROLOGIC: She is neurovascularly intact in the left upper extremity. She ambulates with a slow shuffling gait. IMPRESSION: 1. A 79-year-old female, postop day 6, left total shoulder arthroplasty. 2. compromise, better with steroids, seems to be improving. 3. Demeanor, this might be harbinger onset of dementia and/or a parkinsonian type of issue. PLAN: I had a discussion with the regarding discharge. He has an outpatient service at home to help take care of the patient. He also has a family members and he will also be there around the clock. We will discuss with consultants the discharge medications and plan for discharge tomorrow morning. Job ID: [id number]
--- NOTE | 2020-02-12 11:28 | PRG ---
DATE OF SERVICE: 02/10/2020 SUBJECTIVE: Bhumika is a 79-year-old female. She still needs intensive care unit and slowly progressing from pulmonary standpoint. She is postop day 4 from a left total shoulder arthroplasty. At this point, she has not been out of bed and is difficult for her to engage in therapy, but her vitals remained stable. OBJECTIVE: VITAL SIGNS: Temperature 98, pulse 87, respiratory rate 20 and unlabored, blood pressure 158/98, and pulse ox is 95% on 2 L nasal cannula. She is responsive, but very lethargic. Incision is clean. She is neurovascularly intact in the left upper extremity. IMPRESSION: 1. A 79-year-old female, postop day 4, left total shoulder arthroplasty. 2. Primary pulmonary compromise with acute respiratory failure and hypoxia. PLAN: 1. Defer to Pulmonary for primary medical decision. 2. Continue to follow and give consideration to skilled facility or inpatient rehabilitation, but the has already told me at this point that he would rather take her home. Job ID: [id number]
--- NOTE | 2020-02-12 11:40 | PRG ---
DATE OF SERVICE: 02/11/2020 SUBJECTIVE: Bhumika is a 79-year-old female, postoperative day 5 from a left total shoulder arthroplasty. She is still convalescing in the intensive care unit, but her supplemental oxygen requirements have diminished with a prednisone taper. Dr. Gómez has been following the patient and she is continued to improve. She still has not been out of bed this morning. OBJECTIVE: VITAL SIGNS: Temperature 97, pulse 74, respiratory rate 18 and nonlabored, blood pressure is 150/91, and pulse ox is 97% to 100% on room air. GENERAL: She is responsive and appropriate with examiner. Her incision is clean. No erythema. EXTREMITIES: Neurovascularly intact left shoulder. No discharge is noted. Wound is dry. IMPRESSION: 1. A 79-year-old female, postoperative day 5, left total shoulder arthroplasty, improving. 2. Acute pulmonary failure with hypoxia, slowly improving. PLAN: Continue to follow. We will discuss discharge possibilities when she transfers to the medical floor. Job ID: [id number]
[2020-02-12] MEDS: Lidocaine Patch Removal 1 EACH TOP SCH (12:01)
--- NOTE | 2020-02-12 15:34 | PDOC.HOSPP ---
- Subjective Encounter Date: 02/12/20 Encounter Time: 11:45 Subjective: Patient up in bed states that she feels groggy however oriented x3. Per nursing staff she slept better last night than the previous night. - Objective Vital Signs & Weight: Vital Signs (12 hours) Temp Pulse Resp BP BP Pulse Ox 02/12/20 14:22 67 16 95 02/12/20 11:35 98.5 F 67 18 163/89 H 95 02/12/20 10:35 71 16 96 02/12/20 08:33 96 02/12/20 08:30 73 145/88 H 02/12/20 07:34 98.3 F 73 16 145/88 H 96 02/12/20 06:24 67 16 97 02/12/20 03:50 97.8 F 73 18 155/84 H 97 Weight Weight 227 lb 1 oz Most Recent Monitor Data Heart Rate from ECG 88 NIBP 145/91 NIBP BP-Mean 109 Respiration from ECG 20 SpO2 97 I&O: 02/11/20 02/12/20 02/13/20 06:59 06:59 06:59 Intake Total 1130 1060 Output Total 400 1150 Balance 730 -90 Result Diagrams: 02/11/20 05:11 02/11/20 05:11 Hospitalist ROS - Review of Systems Cardiovascular: denies: chest pain, palpitations, orthopnea, paroxysmal noc. dyspnea, edema, light headedness, other Gastrointestinal: denies: nausea, vomiting, abdominal pain, diarrhea, constipati on, melena, hematochezia, other Genitourinary: denies: dysuria, frequency, incontinence, hematuria, retention, other - Medication Medications: Active Medications Generic Name Dose Route Start Last Admin Trade Name Freq PRN Reason Stop Dose Admin Acetaminophen 650 mg 02/05/20 06:52 02/12/20 15:10 Acetaminophen 325 Mg Tab PO 650 mg TID PRN Administration Pain Hydrocodone Bitart/Acetaminophen 1 tab 02/05/20 07:45 02/09/20 23:06 Hydrocodone/Acetaminophen 5/325 Mg Tablet PO 1 tab Q4H PRN Administration Mild Pain (1-3) Hydrocodone Bitart/Acetaminophen 2 tab 02/05/20 07:45 02/07/20 06:44 Hydrocodone/Acetaminophen 5/325 Mg Tablet PO 2 tab Q4H PRN Administration For Moderate Pain 4-6 Albuterol/Ipratropium 3 ml 02/08/20 14:30 02/12/20 14:22 Ipratropium/Albuterol Sulfate 3 Ml Neb NEB 3 ml [id number] ISREAL Administration Atenolol 50 mg 02/10/20 09:00 02/12/20 08:30 Atenolol 50 Mg Tab PO 50 mg BID ISREAL Administration Calcium Carbonate 500 mg 02/06/20 10:06 02/10/20 22:39 Calcium Carbonate 500 Mg Chewtab PO 500 mg PRN PRN Administration Heartburn or Indigestion Doxazosin Mesylate 4 mg 02/05/20 09:00 02/12/20 08:30 Doxazosin Mesylate 4 Mg Tab PO 4 mg BID ISREAL Administration Enoxaparin Sodium 40 mg 02/09/20 21:00 02/11/20 20:35 Enoxaparin Sodium 40 Mg/0.4 Ml Syringe SC 40 mg 2100 ISREAL Administration Fentanyl 50 mcg 02/05/20 07:40 02/10/20 05:46 Fentanyl 100 Mcg/2 Ml Vial IV 50 mcg Q1H PRN Administration BREAKTHROUGH PAIN Guaifenesin 600 mg 02/08/20 21:00 02/12/20 08:30 Guaifenesin Er 600 Mg Tab PO 600 mg Q12HR ISREAL Administration Lidocaine 1 patch 02/11/20 23:59 02/11/20 23:23 Lidocaine 5% Patch TD 1 patch 1162 ISREAL Administration Loratadine 10 mg 02/05/20 21:00 02/11/20 20:36 Loratadine 10 Mg Tab PO 10 mg HS ISREAL Administration Miscellaneous Medication 1 each 02/12/20 12:00 02/12/20 12:01 Lidocaine Patch Removal 1 Each TOP Not Given 1200 [facility] Montelukast Sodium 10 mg 02/05/20 09:00 02/12/20 08:30 Montelukast Sodium 10 Mg Tablet PO 10 mg DAILY ISREAL Administration Prednisone 10 mg 02/11/20 08:00 02/12/20 08:29 Prednisone 20 Mg Tab PO 10 mg QAM-WM ISREAL Administration Pregabalin 25 mg 02/05/20 09:00 02/12/20 09:49 Pregabalin 25 Mg Cap PO 25 mg TID ISREAL Administration Promethazine HCl 12.5 mg 02/05/20 07:45 02/06/20 03:40 Promethazine Hcl 25 Mg/Ml Vial IM 12.5 mg Q4H PRN Administration Nausea Quetiapine Fumarate 25 mg 02/05/20 09:00 02/12/20 08:30 Quetiapine Fumarate 25 Mg Tab PO 25 mg BID ISREAL Administration Simvastatin 10 mg 02/05/20 21:00 02/11/20 20:36 Simvastatin 10 Mg Tab PO 10 mg QPM ISREAL Administration Tramadol HCl 50 mg 02/05/20 07:45 02/07/20 17:49 Tramadol Hcl 50 Mg Tab PO 50 mg Q6H PRN Administration Mild Pain (1-3) Tramadol HCl 100 mg 02/05/20 07:45 02/10/20 23:06 Tramadol Hcl 50 Mg Tab PO 100 mg Q6H PRN Administration Moderate Pain 4-6 - Exam Neck: negative: supple, symmetric, no JVD, no thyromegaly, no lymphadenopathy, no carotid bruit, JVD Heart: negative: RRR, no murmur, no gallops, no rubs, normal peripheral pulses, irregular, diminshed peripheral pulses, murmur present, II/IV, III/IV Respiratory: negative: CTAB, no wheezes, no rales, no ronchi, normal chest expansion, no tachypnea, normal percussion, rales, rhonchi, tachypneic, wheezes Gastrointestinal: negative: soft, non-tender, non-distended, normal bowel sounds, no palpable masses, no hepatomegaly, no splenomegaly, no bruit, no guarding, no rigidity, tender to palpation, distended, diminished bowl sounds, voluntary guarding Hosp A/P (1) Acute respiratory failure with hypoxia Code(s): J96.01 - ACUTE RESPIRATORY FAILURE WITH HYPOXIA Status: Acute (2) Sleep apnea Code(s): G47.30 - SLEEP APNEA, UNSPECIFIED Status: Acute (3) Obesity Code(s): E66.9 - OBESITY, UNSPECIFIED Status: Acute (4) HTN (hypertension) Code(s): I10 - ESSENTIAL (PRIMARY) HYPERTENSION Status: Chronic (5) Acute metabolic encephalopathy Code(s): G93.41 - METABOLIC ENCEPHALOPATHY Status: Acute - Plan Patient currently doing well. Pulmonology has been consulted. Patient given 1 dose of Lasix. She has been encouraged to use a CPAP at night. She is awake and oriented x2. Patient encouraged to do incentive spirometer. Patient on DVT prophylaxis. 02/09 patient currently off oxygen doing well. She is on the medical floor. We will continue to monitor. Patient encouraged to do incentive spirometer. We will put holding parameters for blood pressure medications. Will check labs in a.m. 02/10 pt encouraged to get up and ambulate. medically she is doing well. she is on dvt ppx. vitals stable. pt on steroid taper per pulm. 02/11 patient needs to be encouraged to get up and ambulate. Medically stable. Will sign off. Steroid taper per pulmonary.
[2020-02-12] MEDS: Loratadine 10 MG TAB PO SCH (19:51)
[2020-02-12] MEDS: Simvastatin 10 MG TAB PO SCH (19:52)
[2020-02-12] MEDS: Enoxaparin Sodium 40 MG/0.4 ML SYRINGE SC SCH (19:54)
[2020-02-12] MEDS: Cepastat Lozenges 1 LOZ PO PRN (20:59)
[2020-02-12] MEDS ORDERED: Lidocaine Patch Removal 1 EACH TOP SCH (21:00)
[2020-02-12] MEDS: Calcium Carbonate 500 MG ChewTAB PO PRN (21:01)
[2020-02-12] MEDS: Lidocaine 5% Patch TD SCH (23:23)
[2020-02-12] MEDS: HYDROcodone/Acetaminophen 5/325 mg Tablet PO PRN (23:26)
[2020-02-13] MEDS: Calcium Carbonate 500 MG ChewTAB PO PRN (00:47)
[2020-02-13] MEDS: Acetaminophen 325 MG TAB PO PRN (05:07)
[2020-02-13] MEDS: Cepastat Lozenges 1 LOZ PO PRN (05:11)
[2020-02-13] MEDS ORDERED: Methyl Salicylate/Menthol 85 GM TUBE TOP PRN (06:48)
[2020-02-13] MEDS: predniSONE 20 MG TAB PO SCH (07:56)
[2020-02-13] MEDS: Montelukast Sodium 10 mg Tablet PO SCH (07:56)
[2020-02-13] MEDS: guaiFENesin ER 600 MG TAB PO SCH (07:56)
[2020-02-13] MEDS: Doxazosin Mesylate 4 MG TAB PO SCH (07:57)
[2020-02-13] MEDS: Atenolol 50 MG TAB PO SCH (07:57)
[2020-02-13] MEDS: Pregabalin 25 MG CAP PO SCH (10:12)
--- NOTE | 2020-02-13 10:36 | PQF ---
CLINICAL DOCUMENTATION CLARIFICATION FORM: Dear Dr. Francisco Date / Time: 02/13/20 1030 Please exercise your independent, professional judgment in responding to the clarification form. Clinical indicators are provided on the bottom of this form for your review. Please check appropriate box(es): [ x ] Hyponatremia please specify etiology, if known ___multifactoral ( volume overload vs SIADH) [ ] Hyponatremia due to SIADH (Syndrome of Inappropriate Secretion of Antidiuretic Hormone) [ ] Other diagnosis [ ] Unable to determine In addition, please specify: Present on Admission (POA): [ x ] Yes [ ] No [ ] Unable to determine For continuity of documentation, please document condition throughout progress notes and discharge summary. Thank You. To be completed by CDI/Coding staff for physician review: CLINICAL INDICATORS - SIGNS / SYMPTOMS / LABS / RESULTS AND LOCATION IN EMR 02/07 Sodium 124 02/08 Sodium 129 02/10 Sodium 132 RISK FACTORS / RESULTS AND LOCATION IN EMR recent surgical procedure Reverse Total Shoulder Arthroplasty ( 02/04/Ahsan) TREATMENTS / RESULTS AND LOCATION IN EMR serial labs ( 02-07-02/10) Thank you! June CDS Signature: June Awan RN Phone #: [phone] Date: 02/13/20 This is a permanent part of the Medical Record [email or web address]
[2020-02-13] MEDS: Lidocaine Patch Removal 1 EACH TOP SCH (12:02)
[2020-02-13 12:05] VITALS: BP 137/65; TEMP 98.8
--- NOTE | 2020-02-13 13:23 | EKG ---
Test Reason : Blood Pressure : / mmHG Vent. Rate : 078 BPM Atrial Rate : 078 BPM P-R Int : 174 ms QRS Dur : 094 ms QT Int : 360 ms P-R-T Axes : 037 -32 019 degrees QTc Int : 410 ms Normal sinus rhythm Left axis deviation Minimal voltage criteria for LVH, may be normal variant Abnormal ECG When compared with ECG of 02-FEB-2020 10:51, Borderline criteria for Lateral infarct are no longer Present Confirmed by DR. Narendra CANNON ([id number]) on 02/13/2020 1:23:26 PM Referred By: MARILEE Confirmed By:DR. Narendra CANNON
--- NOTE | 2020-02-16 09:01 | DIS ---
DATE OF ADMISSION: 02/05/2020 DATE OF DISCHARGE: 02/13/2020 DISCHARGE DISPOSITION: To home. ADMISSION DIAGNOSIS: Left shoulder bicompartmental osteoarthritis. DISCHARGE DIAGNOSES: Left shoulder bicompartmental osteoarthritis, acute respiratory failure with hypoxemia. OPERATIVE PROCEDURE: Left total shoulder arthroplasty. CONSULTANTS: Hospitalist for acute respiratory failure compromise and evaluation and medical management, Dr. Leonidas Gómez. BRIEF CLINICAL HISTORY: Bhumika is a 79-year-old female, who was admitted to [facility], underwent the above elective procedure on date of admission. Postoperatively, she was very slow to progress and failed to even get out of bed on postop day 1. I noticed on rounds that she would desaturate when her nasal cannula supplemental oxygen was removed and she would attempt to stand. Noting this, I went ahead and called the hospitalist for evaluation, who subsequently consulted with Dr. Gómez and placed the patient in the intensive care unit for a couple of nights for observation. and steroids were used and the patient's oxygenation improved significantly as well as her ability to stand and get up. She was discharged from the unit down to the floor and she subsequently made progress with ambulation. Otherwise, her pulmonary symptoms improved and I did offer the patient an inpatient rehabilitation stay or even a correction facility, but she and her both declined, but I consulted Case Management to offer them one anyway. The patient elected to go home and have her look after at home to include a sitting service, which is there during the day. At the time of discharge, the patient is afebrile. She is ambulatory, walking distances greater than 20 feet, tolerating a regular diet, and voiding without difficulty. Her incision is clean and she is neurovascularly intact in the left upper extremity. DISCHARGE MEDICATIONS: To include prednisone as well as Lovenox. Please see medication reconciliation form. We will be happy to see the patient on an as-needed basis between now and her next scheduled appointment. She will be discharged home, which is her choice and they declined a skilled stay as well as inpatient rehabilitation. CONDITION ON DISCHARGE: Stable. PROGNOSIS: To be determined. Job ID: [id number]
== END 2020-02-13 12:03 | disposition home or self-care (01) | DRG 483 ==
LOC: SURG A 02-05 06:02 → SJJU 02-05 12:30 → EDSTATUS 02-05 13:55 → CCU 02-08 12:12 → T4-A 02-10 13:10
PROVIDERS: ADMIT Orthopaedic Surgery; ATTEND Orthopaedic Surgery
PROC: 0RRK00Z Replacement of Left Shoulder Joint with Reverse Ball and Socket Synthetic Substitute, Open Approach (ICD-10-PCS; principal; 2020-02-05)
PROC: 0LS40ZZ Reposition Left Upper Arm Tendon, Open Approach (ICD-10-PCS; 2020-02-05)
DX: M19.012 Primary osteoarthritis, left shoulder (principal); J96.01 Acute respiratory failure with hypoxia; G93.41 Metabolic encephalopathy; Z68.41 Body mass index [BMI] 40.0-44.9, adult; J45.901 Unspecified asthma with (acute) exacerbation; J98.11 Atelectasis; E22.2 Syndrome of inappropriate secretion of antidiuretic hormone; Z20.828 Contact with and (suspected) exposure to other viral communicable diseases; G47.33 Obstructive sleep apnea (adult) (pediatric); F41.9 Anxiety disorder, unspecified; E78.5 Hyperlipidemia, unspecified; I10 Essential (primary) hypertension; E66.01 Morbid (severe) obesity due to excess calories; E87.70 Fluid overload, unspecified; Z79.899 Other long term (current) drug therapy; Z01.818 Encounter for other preprocedural examination
CPT/HCPCS: 36415; 71045; 80048; 80053; 81001; 82570; 82805; 83605; 83880; 83935; 84300; 85025; 85379; 85610; 87635; 93005; 93010; 93970; 94640; 94660; 94760; A4306; C1713; J0692; J1100; J1630; J1650; J1885; J1940; J1956; J2250; J2405; J2550; J2704; J2795; J2930; J3010; J3370; J3475; J3490; J7050; J7512; J7611; J7620; U0003